=== PATIENT | male | born 1995 | race Caucasian/White ===

== ENCOUNTER → 2018-02-08 08:44 | Outpatient (CLI) | payer MEDICAID, SELFPAY ==
[2018-02-08 08:19] VITALS: BMI 23.0
--- NOTE | 2018-02-08 08:46 | RAD_ITS ---
STUDY: X-RAY - RIGHT KNEE REASON FOR EXAM: Male, 22 years old. Chronic pain TECHNIQUE: Four view(s) of the knee were obtained. COMPARISON: None. FINDINGS: The distal femur is unremarkable. The proximal tibia is unremarkable. Normal medial femorotibial compartment. Normal lateral femorotibial compartment. Normal patellofemoral articulation. There is no fullness above the patella. The soft tissue structures are unremarkable. RAD/Knee 4 or More Views IMPRESSION: No significant abnormalities are seen radiographically in the right knee. Electronically Signed: Jennifer López MD at 23:20 EST Tel Direct: [phone], Service support ,
--- OUTSIDE RECORDS SUMMARY | 2018-05-12 19:50 | XMS RPT_ITS ---
:1995 Author Organization [place] Support Name Relationship Address Phone BEVERLY AARON Unavailable [address] + [address] [place] Unavailable [address] + [place] [address] BEVERLY AARON Unavailable [address] + [address] [place] Unavailable [address] + [place] [address] BEVERLY AARON Unavailable [address] + [address] [place] Unavailable [address] + [place] [address] BEVERLY AARON Unavailable [address] + [address] [place] Unavailable [address] + [place] [address] BEVERLY AARON Unavailable [address] + [address] [place] Unavailable [address] + [place] [address] BW[address] Unavailable [address] + [employer] [place] [address] BEVERLY AARON Unavailable [address] + [place] [address] BW[address] Unavailable [address] + [employer] [place] [address] BEVERLY AARON Unavailable [address] + [place] [id number] BW3 Unavailable [address] + [facility] [place] [address] AGNIESZKA, BEVERLY Unavailable [address] + [place] [address] Care Team Providers Name Role Phone Chloe Barillas D.C. Attending Unavailable Primay Care Physicia, No Referring Unavailable Dossie, Chloe Eid Attending Unavailable Dossie, Chloe Eid Attending Unavailable Primay Care Physicia, No Referring Unavailable Primay Care Physicia, No Primary Care Unavailable Dossie, Chloe Eid Attending Unavailable Primay Care Physicia, No Referring Unavailable Wayt, Meño Attending Unavailable Primay Care Physicia, No Referring Unavailable Wayt, Meño Attending Unavailable Wayt, Meño Referring Unavailable Primay Care Physicia, No Primary Care Unavailable Dossie, Chloe Eid Attending Unavailable Primay Care Physicia, No Referring Unavailable Dossie, Chloe Eid Attending Unavailable Dossie, Chloe Eid Referring Unavailable Primay Care Physicia, No Primary Care Unavailable PROBLEMS PROBLEMS DATE TYPE CONDITION / CODE ATTENDING STATUS SOURCE 03/09/2018 Unknown M99.03 - DosChloe muniz [facility] somatic Hospital dysfunction of Repository lumbar region / M99.03(ICD-10) 02/08/2018 Unknown M25.561 - Pain in Wayt Meño [facility] right knee / [facility] M25.561(ICD-10) Hospital Repository 02/09/2018 Unknown M54.17 - DosChloe muniz [facility] Radiculopathy, [facility] lumbosacral Hospital region / Repository M54.17(ICD-10) PROCEDURES PROCEDURES No Procedure Records FoundRESULTS RESULTS PT D/C SUMMARY (1) Observed: 02/10/2018 Status: F Source: [place] 9:43 AM [facility] [place] REPOSITORY [facility] [address] [place] [address] Fax REHABILITATION SERVICES DISCHARGE SUMMARY MR#: [id number] Acct: [id number] Name: KEVIN GALLEGOS Eloy Rep #: [id number] : 1995 22 From: Sonia Xei DPT Referring Dr.: Chloe Dobson D.C. Status: REG RCR Insurance: [employer] SELF [employer]Y [employer]URANCE [place] - PT D/C Summary It has been my pleasure to treat KEVIN GALLEGOS under orders from Chloe Dobson DC, for the diagnosis of Lumbar Pain for a total of 9 visit(s). Discharge Date: Please see the following information for a summary of their discharge status. - Subjective Subjective: Patient reports that his back is good. The pain is better- he is able to lift better and feels more stable. Patient feels that he is 80% better. A little bit of pain today. Worst: 5/10. Best: 0/10. Plans to continue chiro care. Goes back to college Mar 01 - Pain Back Pain Intensity (Out of 10): 1 - Overall Improvement % Improvement: 80 - Objective Objective/Function: Posture: good sitting in plinth no back support. Gait: no deviation noted. Observation: slight lean to the left in standing- no scoliotic curve noted. Palpation: tender along L4-L5 paraspinals on the left. SLS: 30 sec no LOB. ROM: Lumbar: WFL with pain reported in flexion (tightness), Hip/Knee/Ankle: WNL. Strength: ankle: 5/5, Knee: 5/5, Hip: flexion: 4+/5, abd: 5/5, IR: 4+/5, ER: 4+/5, Extn:5/5 Add:5/5, Core:fair plus. Sensation/Reflex: WNL. Flex: HS: moderate, Gastroc: moderate - Goals Goal 1:: Patient will be I with HEP and progression Goal Progress: Goal Met Goal 2:: Patient will maintain proper posture t/o tx session to demo increased core s/s Goal Progress: Goal Met Goal 3:: Patient will demo 4+/5 strength in LE Goal Progress: Goal Met Goal 4:: Patient will report 0/10 pain for 1 week Goal Progress: Progressing - Plan Plan: Discharge to I HEP - D/C Information If there are questions or concerns regarding this patient's physical therapy, please feel free to call me at [phone]. Thank you for the referral of this patient. Sincerely, Sonia Xie, HARPREETT <Electronically signed by Sonia Xie DPT> 02/10/18 0943 CC: No Primary Care Physician; Chloe Dobson D.C. ELR Signed ORTHOPEDIC VISIT Observed: 02/08/2018 Status: F Source: [place] REPORT 11:57 AM [facility] [place] REPOSITORY [facility] Orthopaedics AND Sports Medicine [address] [place] [address] [address] [place] [address] OFFICE VISIT Date of Service: 02/08/18 MR#: [id number] Acct: [id number] Name: KEVIN GALLEGOS Rep #: [id number] : 1995 Provider: ALVIN Glynn Age/Sex: 22/M [place] [facility] Status: Signed Intake Vital Signs02/08/18 Body Mass Index (BMI) 23.0 Intake Visit Reasons: RIGHT KNEE Is patient in pain?: Yes Pain scale (1-10): 4 Allergies No Known Allergies Allergy (Verified 02/08/18 08:48) Medications NK 02/08/18 [History Confirmed 02/08/18] HPI RIGHT KNEE: Details: KEVIN GALLEGOS is a 22 year old M here today for right knee pain. Patient states that he was playing basketball about 4 weeks ago. He jumped up and felt a burning pain over his proximal fibula. Patient states that he did not twist and felt no pop during his injury. He continues to have pain over his lateral posterior knee. He has increased pain with twisting. He denies any knee swelling. Denies numbness, tingling or other associated symptoms. He denies any new knee popping. Patient has iced his knee and taken ibuprofen for pain. He denies any bracing. ROS Const Reports system reviewed and no additional complaints, except as docu Eyes Reports system reviewed and no additional complaints, except as docu ENT Reports system reviewed and no additional complaints, except as docu Card Reports system reviewed and no additional complaints, except as docu Resp Reports system reviewed and no additional complaints, except as docu GI Reports system reviewed and no additional complaints, except as docu Reports system reviewed and no additional complaints, except as docu Musc Reports joint pain Skin/Breast Reports system reviewed and no additional complaints, except as docu Neuro Yes system reviewed and no additional complaints, except as docu Psych Reports system reviewed and no additional complaints, except as docu Endo Reports system reviewed and no additional complaints, except as docu Ortho Exam Right Knee Contralateral Normal: Yes Swelling: No Homans Sign: No Knee ROM: Yes ROM-Extension -20 to 0, Yes ROM-Flexion 0-140 Examination: No Med jt line tenderness, No Lat jt line tenderness, No TTP inf pole patella, No Crepitus, No Pain with flexion, No Pain with extention, No Ab's Test Quad Atrophy: No Stability: NML: Anterior Drawer, NML: Manuel, NML: Posterior Drawer, NML: Valgus 30, NML: Varus 30 Popliteal Adenopathy: No Patellar Tilt Normal: Yes Patella Grind: No KNEE: This time patient has no abnormalities noted on inspection of the knee. He has no generalized or localized swelling of the knee. She has full range of motion and normal strength against resistance comparable to the left leg. Patient has no evidence of any ligamentous laxity. His ACL, PCL and collateral ligaments appear stable without any evident involvement. He does not have any positive meniscus signs at this time. Patient has some very minor tenderness on the posterior lateral aspect of the knee just proximal to the fibular head. There is not appear to be any motion or movement to the lateral head with manipulation or range of motion. Assessment AND Plan Problems 1. Acute pain of right knee M25.561 2. Strain of gastrocnemius tendon of right lower extremity, initial encounter S86.111A Plan Obtained Xrays of patient's right knee. Personally reviewed Xrays. There is no obvious fracture, dislocation, or lucency noted. See chart for further details. At this time patient does not have any evident abnormalities on inspection. Structurally the knee feels very intact without any evident ligamentous or meniscus involvement. He does seem to have tenderness on the lateral gastroc head which actually does correspond with some of his symptoms which occur more when he is up on his toes. Patient is going to work on some stretching of the calf and hamstring. He is going to use a mild compression sleeve around the knee. He can also use some topical remedies such as Biofreeze or icy hot prior to activity. Also needs to ice after activity. If patient has any other new signs or symptoms such as locking, clicking, or instability patient is to return at that time. He can use anti-inflammatories as needed for inflammation/pain. I do think it might not be a bad idea to maybe rest for a little longer while working on just stretching and removing inflammation. Otherwise patient can follow-up as needed. This note was generated with [employer] dictation software. It may contain incorrect words, spelling, and punctuation that were not noted in checking the note before signing. 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 Imaging Services [address] [place] [address] Knee 4 or More Views MR#: [id number] Acct: [id number] Name: KEVIN GALLEGOS Eloy Rep #: [id number] : 1995 M 22 From: Jennifer López MD PCP: Care Physician, No Primary Status: REG CLI Study: Knee 4 or More Views Date of Exam: 02/08/18 Exam# [id number] Ordering Dr: Meño Glynn STUDY: X-RAY - RIGHT KNEE REASON FOR EXAM: Male, 22 years old. Chronic pain TECHNIQUE: Four view(s) of the knee were obtained. COMPARISON: None. FINDINGS: The distal femur is unremarkable. The proximal tibia is unremarkable. Normal medial femorotibial compartment. Normal lateral femorotibial compartment. Normal patellofemoral articulation. There is no fullness above the patella. The soft tissue structures are unremarkable. RAD/Knee 4 or More Views IMPRESSION: No significant abnormalities are seen radiographically in the right knee. Electronically Signed: Jennifer López MD at 23:20 EST Tel Direct: [phone], Service support , CC: No Primary Care Physician; ALVIN Glynn Chemistry Technical Officer: Signed CHIROPRACTIC REPORT Observed: 02/08/2018 Status: F Source: [place] 8:28 AM [facility] [address] [place] [address] OFFICE VISIT Date of Service: 02/08/18 MR#: [id number] Acct: [id number] Name: KEVIN GALLEGOS Rep #: [id number] : 1995 Provider: Chloe Dobson D.C. Age/Sex: 22/M [place] [facility] Status: Signed Intake Vital Signs02/08/18 Height 5 ft 9 in 02/08/18 Weight: 156 lb 02/08/18 Body Mass Index (BMI) 23.0 Intake Visit Reasons: back pain Chief Complaint: low back pain Is patient in pain?: Yes Allergies No Known Allergies Allergy (Unverified 02/11/17 11:02) HPI back pain: Chief Complaint: Low back pain Visit Number: 4 Details: KEVIN GALLEGOS is a 22 year old M who presents with decreased low back pain. He states that after his last adjustment his pain greatly decreased, leaving him with a sore ache that comes and goes. Today Kevin rates his pain a 2/10 and describes it as a sore ache that comes and goes. Bending, and heavy lifting still causes increased pain, although he denies any numbness, tingling, or radiculopathy. 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 factors: chiro Pain Quality: aching, dull, cramping Exam Musc General: Yes normal posture, normal gait and joint tenderness (L3, L4, L5) Thoracic/Lumbar Spine: thoracic and lumbar spine normal to inspection, thoraco-lumbar spasm (R QL and R>L piriformis), pain with thoraco-lumbar ROM, straight leg raise negative bilaterally, Lasegue's sign positive, paraspinal tenderness (slightly improved) on the left greater than right (lumbar), thoraco-lumbar ROM limited Office Procedures Chiropractic Treatments Procedures Manipulation: 1-2 regions (L3, L5) Traction, Mechanical: Yes Details: Lumbar traction 15 min Assessment AND Plan 1. Lumbosacral neuritis M54.17 Orders Orders: 2. Segmental and somatic dysfunction of lumbar region M99.03 Orders Orders: Plan Detail Additional Comments Continue care in 1 month. Monitor response to treatment. 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 Cosigner Signature: Date (if applicable) CC: CHIROPRACTIC REPORT Observed: 02/03/2018 Status: F Source: [place] 9:33 AM [facility] [place] REPOSITORY [facility] [address] [place] [address] OFFICE VISIT Date of Service: 02/03/18 MR#: [id number] Acct: [id number] Name: KEVIN GALLEGOS Rep #: [id number] : 1995 Provider: Chloe Dobson D.C. Age/Sex: 22/M Location: [facility] [place] Status: Signed Intake Vital Signs02/03/18 Height 5 ft 9 in 02/03/18 Weight: 156 lb 02/03/18 Body Mass Index (BMI) 23.0 Intake Visit Reasons: back pain Chief Complaint: low back pain Is patient in pain?: Yes Allergies No Known Allergies Allergy (Unverified 02/11/17 11:02) HPI back pain : Chief Complaint: Low back pain Visit Number: 3 Details: KEVIN GALLEGOS is a 22 year old M who presents with left sided low back pain. He states that his pain has been intermittent, leaving him with a tight and sore ache across the low back. While at work the patient has been lifting heavy boxes, causing increased pain. The pain is described as a sharp shooting that is worse on the left. Kevin denies any numbness, tingling, or radiculopathy. Location: low back pain Duration: intermittent Aggravating or associated factors: rotation, bending, and lifting Relieving factors: chiro Pain Quality: aching, dull, cramping, sharp Exam Musc General: Yes normal posture, normal gait and joint tenderness (L3, L4, L5) Thoracic/Lumbar Spine: thoracic and lumbar spine normal to inspection, thoraco-lumbar spasm (R QL and R>L piriformis), pain with thoraco-lumbar ROM with forward flexion and with lateral flexion to the left, straight leg raise negative bilaterally, Lasegue's sign positive on the left, paraspinal tenderness on the left greater than right (lower lumbars), thoraco-lumbar ROM limited Office Procedures Chiropractic Treatments Procedures Manipulation: 1-2 regions (L3, L5) Details: Assessment AND Plan 1. Segmental and somatic dysfunction of lumbar region M99.03 Orders Orders: 2. Lumbosacral neuritis M54.17 Orders Orders: Plan Detail Additional Comments Continue care at 1x/wk for 4 weeks. Patient is completing PT and has had no improvement. Recommend lumbar MRI. 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 [facility] Signature: Date (if applicable) CC: INITAL EVALUATION (1) Observed: 01/11/2018 Status: F Source: [place] - PT 9:57 AM [facility] [place] REPOSITORY [facility] [address] [place] [address] Fax REHABILITATION SERVICES INITIAL EVALUATION MR#: [id number] Acct: [id number] Name: KEVIN GALLEGOS Rep #: [id number] : 1995 22 From: Sonia Xie DPT Referring Dr.: Chloe Dobson D.C. Status: REG RCR Insurance: [facility] SELF PAY INSURANCE Patient's Visit Information KEVIN GALLEGOS is a 22 year old M referred to Physical Therapy by Chloe Dobson D.C. with a diagnosis of Lumbar Pain. Date of Evaluation: 01/11/18 Physical Therapist: Sonia Xie - Visit Plan Frequency: 3x /Week Duration: 4 Weeks Plan: Start base level and work upwards with core s/s - Subjective Subjective: Patient reports that he has had back problems on/off since he was a andrei in high school when he was awkwardly tackled in a football game. He did therapy his senior year and it helped a lot. He has been seeing Dr. Dobson on/off for awhile. 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 He reports most pain when deadlifting and squatting. He is currently lifting upper body and some mild running on the TM. He wears tennis shoes with no orthotics in them. Pain is in the left side of his back and runs down his leg occasionally. 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 Pain at its worst is a 7/[address] Dobson adjusted him its only been a 3/10. He does have times when he is painfree. Eases of his pain are laying flat. Aggravating symptoms are standing for long periods of time, bending forwards, lifting heavy and driving. No N/T but reports the pain in his back as achy and burning. He has had x-rays only when the injury happened and Dr. Dobson ordered and MRI. He feels that he is weak and is ready to get stronger. No buckling or falls. No loss or change in bowel or bladder. Sleep: not disturbed- looks forwards to going to bed because it lessens the back pain. PMhx: shoulder surgery Feb 2017- AC seperation Meds: none - Objective Posture: poor- FH, RS- can correct with verbal and tactile cues but does not maintain for more than 15 seconds- poor postue in both sitting and standing. Gait: no deviation noted. Observation: slight lean to the left in standing- no scoliotic curve noted. Palpation: tender along L4-L5 paraspinals on the left. SLS: 30 sec no LOB- reports pain when standing on the right LE. ROM: Lumbar: WFL with pain reported in flexion (tightness), Hip/Knee/Ankle: WNL. Strength: ankle: 5/5, Knee: 5/5, Hip: flexion: 4-/5, abd: 4-/5, IR: 4-/5, ER: 4-/5, Extn:4-/5 Add: 4/5, Core: poor. Sensation/Reflex: WNL. Flex: HS: severe, Gastroc: moderate - Goals Goal 1:: Patient will be I with HEP and progression Goal Time Frame: 4-6 Weeks Goal 2:: Patient will maintain proper posture t/o tx session to demo increased core s/s Goal Time Frame: 4-6 Weeks Goal 3:: Patient will demo 4+/5 strength in LE Goal Time Frame: 4-6 Weeks Goal 4:: Patient will report 0/10 pain for 1 week Goal Time Frame: 4-6 Weeks - Rehabilitation Potential Physical Therapy Diagnosis: Patient presents with significant weakness in his core and hips bilaterally. The decreased strength and stabilization of his spine increased pain and decrease his ability to perform ADL's and recreational activities without pain. Rehabilitation Potential: Fair - Anticipated Interventions Patient/Client Instruction: Educate patient on: Benefits of Fitness Program Therapeutic Exercise to Include: Strength training, Balance training, Agility training, Body mechanics, Postural training, Flexibilty training, Dynamic Lumbar Stabilization, Scapular Strength/Stabilization For the Purpose of:: To improve muscle performance and motor function TENS: Yes Cryotherapy (ice pack, ice massage): Yes Thermo therapy (hot pack): Yes Ultrasound (thermal/non thermal): No Thank you for the opportunity to evaluate your patient. For Medicare and Medicare HMO plans, please review the plan of care and approve it. It will need to be FAXED BACK to us at [phone] for Medicare purposes. Please let me know if there are questions or concerns regarding this plan of care. Physician Signature: Date: <Electronically signed by Sonia Xie DPT> 01/11/18 0957 CC: No Primary Care Physician; Chloe Dobson D.C. ELR Signed For Medicare only, by signing this I certify the plan of care. Physicians Signature Date CHIROPRACTIC REPORT Observed: 01/05/2018 Status: F Source: [place] 9:26 AM [facility] [address] [place] [id number] OFFICE VISIT Date of Service: 01/04/18 MR#: [id number] Acct: [id number] Name: KEVIN GALLEGOS Rep #: [id number] : 1995 Provider: Chloe Dossi, D.C. Age/Sex: 22/M [place] [facility] [place] Status: Signed Intake Vital Signs01/04/18 Height 5 ft 9 in 01/04/18 Weight: 156 lb 01/04/18 Body Mass Index (BMI) 23.0 Intake Visit Reasons: back pain Chief Complaint: low back pain Is patient in pain?: Yes Allergies No Known Allergies Allergy (Unverified 02/11/17 11:02) HPI back pain : Chief Complaint: Low back pain Visit Number: 3 Details: KEVIN GALLEGOS is a 22 year old M who presents with low back pain. He states that recently his back has felt sore and weak. Today Kevin rates his pain a 3/10 and describes it as a sore and deep ache that bands across the low back. Standing, bending, and lifting causes increased pain, although he denies any numbness or tingling. He has taken time off from football this year to allow his back to rest, however continues to get pain that at times radiates down into the back of his thighs. No weakness noted. Location: low back pain Duration: intermittent Aggravating or associated factors: Bending, lifting Relieving factors: chiro Pain Quality: aching, dull, radiating (posterior thigh) Exam Musc General: Yes normal posture, normal gait and joint tenderness (L3, L4, L5) Thoracic/Lumbar Spine: thoracic and lumbar spine normal to inspection, thoraco-lumbar spasm (R QL and R>L piriformis), pain with thoraco-lumbar ROM with forward flexion, other (extension), with rotation to the right and with rotation to the left, straight leg raise negative bilaterally, Lasegue's sign positive bilaterally, paraspinal tenderness bilaterally in the lower lumbar and in the mid lumbar, thoraco-lumbar ROM limited with forward flexion Neuro General: alert, awake, oriented x3, gait normal, normal light touch, pain and propioception, no focal motor deficits Ortho Test CERVICAL THORACIC LUMBAR Kemps: Positive, Right, Le Valsalvas: Negative SLR: Negative Lumbar Series: +Minors sign Office Procedures Chiropractic Treatments Procedures Manipulation: 1-2 regions (L3, L5) Assessment AND Plan Problems 1. Segmental and somatic dysfunction of lumbar region M99.03 2. Lumbosacral neuritis M54.17 Plan Provided referral for PT. Recommend authorization for lumbar MRI. 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 Cosigner Signature: Date (if applicable) CC: CHIROPRACTIC REPORT Observed: 04/28/2017 Status: F Source: [place] 8:55 AM [facility] [address] [place] [address] OFFICE VISIT Date of Service: 04/28/17 MR#: [id number] Acct: [id number] Name: KEVIN GALLEGOS Rep #: [id number] : 1995 Provider: Chloe Dobson D.C. Age/Sex: 21/M Location: [facility] [place] Status: Signed Intake Vital Signs04/28/17 Height 5 ft 9 in 04/28/17 Weight: 156 lb 04/28/17 Body Mass Index (BMI) 23.0 Intake Visit Reasons: low back pain Is patient in pain?: Yes Allergies No Known Allergies Allergy (Unverified 02/11/17 11:02) HPI low back pain : Chief Complaint: low back pain Visit Number: 2 Details: KEVIN GALLEGOS is a 21 year old M who presents with low back pain. Kevin states that recently he began squatting/ lifting again he has noticed a tight sharp ache in the low back. today he rates his pain a 3/10. Kevin describes his pain as a tight sharp ache that is banding across the low back. Bending, squatting and lifting cause increased pain although he denies any numbness or tingling. No radiation into the lower extremities. Onset: 04/21/17 Location: low back Duration: intermittant Aggravating or associated factors: bending, lifting and squatting Relieving factors: stretching Pain Quality: aching, dull, sharp Exam Musc General: Yes normal posture, normal gait and joint tenderness (L3, L4, L5) Thoracic/Lumbar Spine: thoracic and lumbar spine normal to inspection, thoraco-lumbar spasm (R QL and R>L piriformis), pain with thoraco-lumbar ROM (pain is bilateral ) with forward flexion, with lateral flexion to the right and with lateral flexion to the left Office Procedures Chiropractic Treatments Procedures Manipulation: 1-2 regions (L3, L5) Assessment AND Plan 1. Segmental and somatic dysfunction of lumbar region M99.03 Orders Orders: Plan Detail Goals Decrease pain and spasm Increase ROM Barriers Football Heavy lifting Follow Up PRN Coding Level of Care Code No Charge Diagnoses Segmental and somatic dysfunction of lumbar region M99.03 Additional Codes Procedures - Manipulation: 1-2 regions (85198) 04/28/17 0855 <Electronically signed by Chloe Dobson D.C.> Date Chloe Dobson D.C. Cosigner Signature: Date (if applicable) CC: ALLERGIES ALLERGIES DATE TYPE / CODE NAME / CODE REACTION SEVERITY SOURCE 02/08/2018 Drug No Known Unknown [place] [facility] Allergy/4160 Allergies/F00 [facility] [address](SNOMED [id number](RXNOR Repository CT) M) ENCOUNTERS ENCOUNTERS ADMIT/DISCHARGE ACCOUNT ADMITTING ENCOUNTER LOCATION SOURCE NUMBER CLASS 02/10/2018/ [id number] Ambulatory [place] 8 4 [facility] ing:PT Repository 02/08/2018 [id number] Ambulatory [place] 3 [facility] ing:HPRAD Repository 02/08/2018/ [id number] Ambulatory B[facility] [place] 8 5 [facility] Repository 02/08/2018/ [id number] Ambulatory BMSBuilding:B [place] 8 4 [facility] Repository 02/03/2018/ [id number] Ambulatory B[facility] [place] 8 8 [facility] Repository 01/04/2018/ [id number] Ambulatory [facility] [place] 8 2 [facility] Repository 07/06/2017 [id number] Ambulatory [facility] [place] 6 [facility] Repository 04/28/2017/ [id number] Ambulatory BMSBuilding:B [place] 8 9 [facility] Repository PAYERS PAYERS ENCOUNTER GUARANTOR PAYER SUBSCRIBER SOURCE 02/10/2018 KEVIN D Primary KEVIN D [place] [id number] TRIPP Insurance:BUCKEYE REEDDOB: [facility] [id number] [facility] [address]Uwc: (567) PLANPolicy Number: Repository [phone] () [id number] Date:[id number] [address] [place] [address]28[address]QJ: 02/10/2018 Secondary NOT GIVENUNK [place] Insurance:SELF PAY [facility] Number: Effective Repository Date:2018-01-04 02/08/2018 KEVIN D Primary KEVIN D [place] [id number] TRIPP Insurance:BUCKEYE REEDDOB: [facility] [id number] Hospital [address]Xog: (567) PLANPolicy Number: Repository [phone] () [id number] Date:[id number] [address]WS: 02/08/2018 Secondary NOT GIVENUNK [place] Insurance:SELF PAY [facility] Number: Effective Repository Date:2018-02-08 02/08/2018 KEVIN D Primary KEVIN D [place] [id number] TRIPP Insurance:BUCKEYE REEDDOB: [facility] [id number] Hospital [address]Udf: (567) PLANPolicy Number: Repository [phone] () [id number] Date:[id number] [address] [address]ZN: 02/08/2018 Secondary NOT GIVENUNK [place] Insurance:SELF PAY [facility] Number: Effective Repository Date:2018-02-08 02/08/2018 EKVIN D Primary KEVIN D [place] [id number] TRIPP Insurance:BUCKEYE REEDDOB: [facility] [id number] [id number]: (567) PLANPolicy Number: Repository [phone] () [id number] Date:[id number] [address] [address]EH: 02/08/2018 Secondary NOT GIVENUNK [place] Insurance:SELF PAY [facility] Number: Effective Repository Date:2018-02-08 02/03/2018 KEVIN D Primary KEVIN D [place] [id number] TRIPP Insurance:BUCKEYE REEDDOB: [facility] [id number] Hospital [address]Kvr: (567) PLANPolicy Number: Repository [phone] () [id number] Date:[id number] [address]NS: 02/03/2018 Secondary NOT GIVENUNK [place] Insurance:SELF PAY [facility] Number: Effective Repository Date:2018-02-02 01/04/2018 KEVIN [id number] Primary KEVIN REEDDOB: [place] TRIPP Insurance:BECKAEYE [id number] [address]Rpo: (567) PLANPolicy Number: Repository [phone] () [id number] Date:[id number] [address] [address]LN: 01/04/2018 Secondary NOT GIVENUNK [place] Insurance:SELF PAY [facility] Number: Effective Repository Date:2018-01-04 07/06/2017 KEVIN [id number] Primary KEVIN REEDDOB: [place] TRIPP Insurance:CHARMCO [id number] [address]Iom: (567) PLANPolicy Number: Repository [phone] () [id number] Date:[id number] [address] [place], [place] [address] [address]KD: 07/06/2017 Secondary NOT GIVENUNK [place] Insurance:SELF PAY [facility] Number: Effective Repository Date:2017-07-02 04/28/2017 KEVIN [id number] Primary KEVIN REEDDOB: [place] TRIPP Insurance:CHARMCO [id number] [address]Kbk: (567) PLANPolicy Number: Repository [phone] () [id number] Date:[id number] [place] [address]HG: 04/28/2017 Secondary NOT GIVENUNK [place] Insurance:SELF PAY [facility] Number: Effective Repository Date:2017-04-27
== END ==
PROVIDERS: Referring Provider Physician Assistant; Visit Provider Physician Assistant
DX: M25.561 Pain in right knee (principal)
CPT/HCPCS: 73564

== ENCOUNTER 2018-02-10 09:00 | Outpatient (RCR) | payer MEDICAID, SELFPAY ==
--- NOTE | 2018-01-11 09:57 | HP.PTEVAL ---
Patient's Visit Information KEVIN GALLEGOS is a 22 year old M referred to Physical Therapy by Chloe Dobson D.C. with a diagnosis of Lumbar Pain. Date of Evaluation: 01/11/18 Physical Therapist: Sonia Xie - Visit Plan Frequency: 3x /Week Duration: 4 Weeks Plan: Start base level and work upwards with core s/s - Subjective Subjective: Patient reports that he has had back problems on/off since he was a andrei in high school when he was awkwardly tackled in a football game. He did therapy his senior year and it helped a lot. He has been seeing Dr. Dobson on/off for awhile. 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 He plans to play next year at [employer] for [employer]- he does not have their lifting program yet as that starts in the spring. He reports most pain when deadlifting and squatting. He is currently lifting upper body and some mild running on the TM. He wears tennis shoes with no orthotics in them. Pain is in the left side of his back and runs down his leg occasionally. 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 Pain at its worst is a 7/[address] Dobson adjusted him its only been a 3/10. He does have times when he is painfree. Eases of his pain are laying flat. Aggravating symptoms are standing for long periods of time, bending forwards, lifting heavy and driving. No N/T but reports the pain in his back as achy and burning. He has had x-rays only when the injury happened and Dr. Dobson ordered and MRI. He feels that he is weak and is ready to get stronger. No buckling or falls. No loss or change in bowel or bladder. Sleep: not disturbed- looks forwards to going to bed because it lessens the back pain. PMhx: shoulder surgery Feb 2017- AC seperation Meds: none - Objective Posture: poor- FH, RS- can correct with verbal and tactile cues but does not maintain for more than 15 seconds- poor postue in both sitting and standing. Gait: no deviation noted. Observation: slight lean to the left in standing- no scoliotic curve noted. Palpation: tender along L4-L5 paraspinals on the left. SLS: 30 sec no LOB- reports pain when standing on the right LE. ROM: Lumbar: WFL with pain reported in flexion (tightness), Hip/Knee/Ankle: WNL. Strength: ankle: 5/5, Knee: 5/5, Hip: flexion: 4-/5, abd: 4-/5, IR: 4-/5, ER: 4-/5, Extn:4-/5 Add: 4/5, Core: poor. Sensation/Reflex: WNL. Flex: HS: severe, Gastroc: moderate - Goals Goal 1:: Patient will be I with HEP and progression Goal Time Frame: 4-6 Weeks Goal 2:: Patient will maintain proper posture t/o tx session to demo increased core s/s Goal Time Frame: 4-6 Weeks Goal 3:: Patient will demo 4+/5 strength in LE Goal Time Frame: 4-6 Weeks Goal 4:: Patient will report 0/10 pain for 1 week Goal Time Frame: 4-6 Weeks - Rehabilitation Potential Physical Therapy Diagnosis: Patient presents with significant weakness in his core and hips bilaterally. The decreased strength and stabilization of his spine increased pain and decrease his ability to perform ADL's and recreational activities without pain. Rehabilitation Potential: Fair - Anticipated Interventions Patient/Client Instruction: Educate patient on: Benefits of Fitness Program Therapeutic Exercise to Include: Strength training, Balance training, Agility training, Body mechanics, Postural training, Flexibilty training, Dynamic Lumbar Stabilization, Scapular Strength/Stabilization For the Purpose of:: To improve muscle performance and motor function TENS: Yes Cryotherapy (ice pack, ice massage): Yes Thermo therapy (hot pack): Yes Ultrasound (thermal/non thermal): No Thank you for the opportunity to evaluate your patient. For Medicare and Medicare HMO plans, please review the plan of care and approve it. It will need to be FAXED BACK to us at [phone] for Medicare purposes. Please let me know if there are questions or concerns regarding this plan of care. Physician Signature: Date:
--- NOTE | 2018-02-10 09:40 | HP.PTDCSUM ---
HP - PT D/C Summary It has been my pleasure to treat KEVIN GALLEGOS under orders from Chloe Dobson DC, for the diagnosis of Lumbar Pain for a total of 9 visit(s). Discharge Date: Please see the following information for a summary of their discharge status. - Subjective Subjective: Patient reports that his back is good. The pain is better- he is able to lift better and feels more stable. Patient feels that he is 80% better. A little bit of pain today. Worst: 5/10. Best: 0/10. Plans to continue chiro care. Goes back to college Mar 01 - Pain Back Pain Intensity (Out of 10): 1 - Overall Improvement % Improvement: 80 - Objective Objective/Function: Posture: good sitting in plinth no back support. Gait: no deviation noted. Observation: slight lean to the left in standing- no scoliotic curve noted. Palpation: tender along L4-L5 paraspinals on the left. SLS: 30 sec no LOB. ROM: Lumbar: WFL with pain reported in flexion (tightness), Hip/Knee/Ankle: WNL. Strength: ankle: 5/5, Knee: 5/5, Hip: flexion: 4+/5, abd: 5/5, IR: 4+/5, ER: 4+/5, Extn:5/5 Add:5/5, Core:fair plus. Sensation/Reflex: WNL. Flex: HS: moderate, Gastroc: moderate - Goals Goal 1:: Patient will be I with HEP and progression Goal Progress: Goal Met Goal 2:: Patient will maintain proper posture t/o tx session to demo increased core s/s Goal Progress: Goal Met Goal 3:: Patient will demo 4+/5 strength in LE Goal Progress: Goal Met Goal 4:: Patient will report 0/10 pain for 1 week Goal Progress: Progressing - Plan Plan: Discharge to I HEP - D/C Information If there are questions or concerns regarding this patient's physical therapy, please feel free to call me at [phone]. Thank you for the referral of this patient. Sincerely, Sonia Xie DPT
== END 2018-02-10 19:00 | disposition home or self-care (01) ==
LOC: PT 09:00
PROVIDERS: Referring Provider Chiropractor; Visit Provider Chiropractor
DX: M99.03 Segmental and somatic dysfunction of lumbar region (principal)
CPT/HCPCS: 97110; 97162; 97164

== ENCOUNTER → 2024-07-15 | Outpatient (CLI) | payer OTHER, SELFPAY ==
--- NOTE | 2024-07-15 07:00 | MRI_ITS ---
PROCEDURE: SPINE LUMBAR (ROUTINE) 07/15/2024 REASON FOR EXAM: PAIN TECHNIQUE: Multiplanar and multisequence images were obtained without IV contrast administration. COMPARISON: none FINDINGS: Straightened lumbar lordotic curve denoting myospasm. The examined vertebrae bodies and posterior neural arches show no fracture or dislocation with preserve vertebral bodies height. Marginal lipping and subchondral degenerative marrow signal/Modio II of L5-S1 vertebral end plates. Reduced bright T2 WI signal of L4-L5 and L5-S1 discs denoting their desiccation. T12-L1: There is no focal disc pathology, central canal stenosis or neural foraminal stenosis. L1-L2: There is no focal disc pathology, central canal stenosis or neural foraminal stenosis. L2-L3: There is no focal disc pathology, central canal stenosis or neural foraminal stenosis. L3-L4: There is no focal disc pathology, central canal stenosis or neural foraminal stenosis. L4-L5: a diffuse disc bulge with a 1.5 mm central focal posterior disc protrusion and annular tear indenting the theca and encroaching upon both neural exit foramina inducing mild exiting nerve roots compression. L5-S1: a diffuse disc bulge with a 1.5 mm central focal posterior disc protrusion and annular tear indenting the theca and encroaching upon both neural exit foramina inducing mild exiting nerve roots compression. The lower thoracic spinal cord, conus medullaris, and cauda equina nerve roots are unremarkable. Multilevel small vertebral bodies hemangiomata. No marrow infiltrative lesions. Paravertebral soft tissue is unremarkable. No developmental canal stenosis. MRI/Spine Lumbar (Routine) IMPRESSION: Straightened lumbar lordotic curve denoting myospasm. No vertebral fracture or dislocation. L4-L5: a diffuse disc bulge with a 1.5 mm central focal posterior disc protrusi on and annular tear inducing mild exiting nerve roots compression. L5-S1: a diffuse disc bulge with a 1.5 mm central focal posterior disc protrusi on and annular tear inducing mild exiting nerve roots compression. Reading Location: [place] [address]
== END | disposition home or self-care (01) ==
PROVIDERS: Referring Provider Student in an Organized Health Care Education/Training Program; Visit Provider Student in an Organized Health Care Education/Training Program
DX: M54.16 Radiculopathy, lumbar region (principal)
CPT/HCPCS: 72148

== ENCOUNTER → 2024-10-31 | Outpatient (CLI) | payer OTHER, SELFPAY ==
--- OUTSIDE RECORDS SUMMARY | 2024-10-31 08:20 | XMS RPT_ITS | CCD ---
Author Organization [facility] Care Team Providers Care Rd Lab Technician Name Role Phone Gemma Nuñez LPN Unavailable Unavailab Chloe Gardner DC Unavailable Gemma Nuñez LPN Unavailable Unavailab HALLE Farley Attending Unavailable PHYSICIAN, NONE Primary Care Unavailable No, Physician Primary Care Provider Unavailabl e Unavailable Primary Care Provider UnavailGELA Mas Referring Unavailable Tay DUBON, Margarita Acosta Primary Care Provider Jany Giron CNP Primary [facility] Provide [facility] Unavailable Unavailabl MARGARITA Otero Primary Care Unavailabl WES Denise Attending Unavailable MARGARITA CROSS Primary Care Unavailabl e MARGARITA CROSS Referring Unavailabl e MARGARITA CROSS Attending Unavailabl e MARGARITA CROSS Referring Unavailabl e MARGARITA CROSS Attending Unavailabl MARGARITA Otero Primary Care UnavailVIJI Up Attending Unavailable SOFIYA GIRON Primary Care Unavailabl TOM Ramos Attending Unavailable VANITA MELENDEZ Referring Unavailable VIAJase, VANITA BALLARD Admitting Unavailable JANY GIRON Primary Care Unavaila TOM Nuñez Attending Unavailable VANITA MELENDEZ Referring Unavailable VIAU, VANITA BALLARD Admitting Unavailable SPIJANY NAZARIO Primary Care Unavaila ble VIAJase, VANITA BALLARD Referring Unavailable VIAJase, VANITA BALLARD Attending Unavailable JANY GIRON Primary Care Unavaila ble SPIJANY NAZARIO Admitting Unavaila ble SPIELDENNEJANY Lo Primary Care Unavaila ble SPIELDENNER, JANY FAISAL Primary Care Unavaila ble SPIELDENNER, JANY MALONE Referring Unavaila ble SPIELDENNER, JANY MALONE Attending Unavaila ble SPIELDENNER, JANY MALONE Primary Care Unavaila ble PIO, THOMAS Attending Unavailable VIAU, VANITA BALLARD Admitting Unavailable VIAU, VANITA BALLARD Referring Unavailable TAY [facility] Care Unavailabl e TOM BARKER Attending Unavailable VIAU, VANITA BALLARD Admitting Unavailable VIAU, VANITA BALLARD Referring Unavailable TAY, [facility] Care Unavailabl e CESILIA SOTELO Attending Unavailable VIAU, VANITA BALLARD Admitting Unavailable VIAU, VANITA BALLARD Referring Unavailable SPIELDENNER, JANY FAISAL Primary Care Unavaila ble SPIELDENNER, JANY FAISAL Primary Care Unavaila ble PIO, THOMAS Attending Unavailable VIAU, VANITA BALLARD Admitting Unavailable VIAU, VANITA CRUZER Referring Unavailable VIAU, VANITA CRUZER Admitting Unavailable LIVIER KIRKPATRICK Attending Unavailable SPIELDENNER, JANY FAISAL Primary Care Unavaila ble VIAU, VANITA BALLARD Referring Unavailable CESILIA SOTELO Attending Unavailable VIAU, VANITA BALLARD Admitting Unavailable SPIELDENNER, [facility] Primary Care Unavaila ble VIAU, VANITA BALLARD Referring Unavailable VIAU, VANITA BALLARD Referring Unavailable TOM BARKER Attending Unavailable VIAU, VANITA BALLARD Admitting Unavailable SPIELDENNER, JANY FAISAL Primary Care Unavaila ble PIO, THOMAS Attending Unavailable VIAU, VANITA BALLARD Referring Unavailable VIAU, VANITA BALLARD Admitting Unavailable SPIELDENNER, JANY FAISAL Primary Care Unavaila ble SPIELDENNER, JANY MALONE Primary Care Unavaila ble VIAU, VANITA BALLARD Attending Unavailable SPIELDENNER, JANY FAISAL Primary Care Unavaila ble FANELLO, TAMIKOKALYAN FUNEZ Admitting Unavailable FANELLO TAMIKOKALYAN FUNEZ Referring Unavailable SPIELDENNER, JANY MALONE Primary Care Unavaila ble FANELLO, TAMIKO FUNEZ Attending Unavailable SPIELDENNER, JANY MALONE Attending Unavaila ble SPIELDENNER, JANY MALONE Primary Care Unavaila ble SPIELDENNER, JANY MALONE Attending Unavaila ble SPIELDENNER, JANY MALONE Primary Care Unavaila ble SPIELDENNETeresita, JANY MALONE Attending Unavaila ble SPIELDENNER, JANY MALONE Primary Care Unavaila ble LU CASTRO Attending Unavailabl e SPIELDENNETeresita, JANY MALONE Primary Care Unavaila ble SPIELDENNER, JANY MALONE Attending Unavaila ble SPIELDENNER, JANY MALONE Primary Care Unavaila ble SPIELDENNER, JANY MALONE Attending Unavaila ble SPIELDENNER, JANY MALONE Primary Care Unavaila ble SPIELDENNER, JANY AMLONE Attending Unavaila ble SPIELDENNER, JANY MALONE Primary Care Unavaila ble SPIELDENNER, JANY MALONE Primary Care Unavaila ble VANITA MELENDEZ Attending Unavailable Care Physician, No Primary Primary Care Provider Unavailable Care Physician, No Primary Referring Provider Un available Thu Mackay Attending Provider [phone] Edilma BAUGH, Dr. Do Attending Provider [phone] Thu Mackay Referring Provider [phone] Care Physician, No Primary Primary Care Unava ilable Thu Sher Attending Unavailable Care Physician, No Primary Referring Unava ilable Care Physician, No Primary Primary Care Unava ilable Hi France Attending Unavailable Care Physician, No Primary Primary Care Unava ilable Thu Sher Referring Unavailable Thu Sher Attending Unavailable Allergies Allergy Classification Reported Allergen(s) Allergy Type Date of Onset Reaction(s) Facility (2 sources) Penicillins; Translations: [PENICILLINS] Propensity to adverse reactions to drug 1 [facility] (3 sources) Penicillin; Translations: [PENICILLIN] Drug Allergy 3 [facility] Repository Medications Current Medications Medication Drug Class(es) Dates Sig (Normalized) Sig (Original) diclofenac sodium 75 mg delayed release oral tablet (5 sources) Nonsteroidal Anti-inflammatory Drug Start: 12-19-2022 End: 03-19-2023 take 1 tablet by mouth twice daily at mealtime diclofenac sodium (VOLTAREN) 75 MG EC tablet Indications: Lumbar radiculopathy , Chronic pain of left knee Take 1 (one) tablet (75 mg total) by mouth 2 (two) times a day with meals . 60 tablet 2 12/19/2022 01/28/2023 Discontinued (Patient's Request) escitalopram 20 mg oral tablet (9 sources) Serotonin Reuptake Inhibitor Start: 09-17-2023 End: 10-13-2023 take 1 tablet by mouth once daily escitalopram oxalate (LEXAPRO) 20 MG tablet Indications: HEMALATHA (generalized anxiety disorder) Take 1 (one) tablet (20 mg total) by mouth daily . 90 tablet 3 10/13/2023 Active Start: 08-11-2023 End: 08-10-2024 escitalopram oxalate (LEXAPR O) 10 MG tablet Indications: HEMALATHA (generalized anxiety disorder) Take 1 1/2 tab daily . 45 tablet 11 09/08/2023 09/17/2023 Discontinued melatonin 10 mg oral capsule (3 sources) End: 02-10-2024 take 1 capsule by mouth once daily melatonin 10 mg cap Take 10 mg by mouth nightly . 02/10/2024 Discontinued (Patient's Request) methocarbamol 500 mg oral tablet (1 source) Muscle Relaxant Start: 06-30-2024 take 1 tablet by mouth three times daily as needed for pain Methocarbamol 500 mg tablet Active 500 mg PO THREE TIMES A DAY as needed for pain/spasms 60 June 30, 2024 12:00am ondansetron 4 mg disintegrating oral tablet (1 source) Serotonin-3 Receptor Antagonist Start: 12-05-2020 take 1 tablet by mouth every eight hours as needed for nausea ondansetron (ZOFRAN ODT) 4 MG disintegrating tablet Take 1 tablet by mouth every 8 hours as needed for Nausea or Vomiting 10 tablet 0 12/05/2020 Active Completed/Discontinued Medications Medication Drug Class(es) Dates Sig (Normalized) Sig (Original) hydrOXYzine pamoate 25 mg oral capsule (11 sources) Antihistamine Start: 04-30-2023 End: 07-19-2025 take 1 capsule by mouth three times daily as needed hydrOXYzine (VISTARIL) 25 MG capsule Take 1 (one) capsule (25 mg total) by mouth 3 (three) times a day as needed for itching . 30 capsule 02/10/2024 07/19/2024 Discontinued (Reorder (Suppress CancelRx Message to Pharmacy)) meloxicam 15 mg oral tablet (6 sources) Nonsteroidal Anti-inflammatory Drug Start: 03-24-2023 End: 03-23-2024 take 1 tablet by mouth once daily meloxicam (MOBIC) 15 MG tablet Indications: Lumbar degenerative disc disease Take 1 (one) tablet (15 mg total) by mouth daily . 90 tablet 3 03/24/2023 09/17/2023 Discontinued (Patient's Request) therapeutic multivitamin (THERAGRAN) tablet (17 sources) End: 07-30-2023 take 1 tablet by mouth once daily therapeutic multivitamin (THERAGRAN) tablet Take 1 (one) tablet by mouth daily . 0 07/30/2023 Discontinued take 1 tablet by mouth once ac y therapeutic multivitamin (THERAGRAN) tablet Take 1 (one) tablet by mouth daily . 0 Active Problems Active Problems Problem Classification Problem Date Documented Da te Episodic/Chronic Abdominal pain (3 sources) Right upper quadrant pain; Translations: [Right upper quadrant pain] Onset: 12-05-2020 Episodic Anxiety disorders (20 sources) Generalized anxiety disorder; Translations: [Generalized anxiety disorder] Onset: 01-28-2023 01-28-2023 Chronic Diseases of white blood cells (6 sources) Leukopenia; Translations: [Decreased white blood cell count, unspecified] Onset: 04-30-2023 01-29-2023 Chronic Open wounds of extremities (1 source) Laceration without foreign body of right hand, initial encounter; Translations: [Laceration of right hand without foreign body, initial encounter] Onset: 09-19-2023 Episodic Other bone disease and musculoskeletal deformities (5 sources) Segmental and somatic dysfunction; Translations: [Segmental and somatic dysfunction of lumbar region] Onset: 12-10-2015 12-10-2015 Episodic Other nervous system disorders (2 sources) Other chronic pain; Translations: [Other chronic pain] Onset: 12-22-2022 Chronic Other non-traumatic joint disorders (1 source) Arthropathy of knee joint; Translations: [Osteochondral defect of femoral condyle] Chronic Spondylosis; intervertebral disc disorders; other back problems (8 sources) Degeneration of lumbar intervertebral disc; Translations: [Other intervertebral disc degeneration, lumbar region] Onset: 03-19-2023 01-07-2023 Chronic Spondylosis; intervertebral disc disorders; other back problems (20 sources) Low back pain; Translations: [Lumbar radiculopathy] Onset: 05-30-2015 Resolved: 08-11-2023 05-30-2015 Episodic Unclassified (2 sources) Physical examination; Translations: [Encounter for general adult medical examination without abnormal findings] Onset: 08-20-2016 08-20-2016 Unclassified (1 source) Acute tear of medial meniscus of left knee; Translations: [Acute medial meniscus tear of left knee, initial encounter] Unclassified (2 sources) Low back pain, unspecified; Translations: [Low back pain, unspecified] Onset: 02-10-2023 Past or Other Problems Problem Classification Problem Date Documented Da te Episodic/Chronic Cardiac dysrhythmias (5 sources) Palpitations; Translations: [Palpitations] Onset: 01-26-2023 01-28-2023 Episodic Malaise and fatigue (2 sources) Other fatigue; Translations: [Other fatigue] Onset: 06-19-2023 Episodic Mood disorders (2 sources) Mood disorders Onset: 04-30-2023 Resolved: 10-13-2023 04-30-2023 Other connective tissue disease (4 sources) Contracture of hamstring(s); Translations: [Contracture of muscle, left thigh] Onset: 05-30-2015 06-06-2015 Episodic Other non-traumatic joint disorders (3 sources) Pain in left knee; Translations: [Pain in joint, lower leg] Onset: 12-22-2022 01-07-2023 Episodic Other upper respiratory infections (4 sources) Viral upper respiratory tract infection; Translations: [Acute upper respiratory infection, unspecified] Onset: 09-17-2023 09-17-2023 Episodic Residual codes; unclassified (2 sources) Pain Onset: 03-09-2023 Episodic Residual codes; unclassified (2 sources) Pain, unspecified; Translations: [Pain, unspecified] Onset: 02-18-2023 Episodic Sprains and strains (20 sources) Strain of muscle, fascia and tendon of lower back, initial encounter; Translations: [Sprain of ligament of lumbosacral joint] Onset: 05-30-2015 Resolved: 04-30-2023 06-06-2015 Episodic Unclassified (1 source) Low back pain, unspecified; Translations: [Low back pain, unspecified] Onset: 02-24-2023 Results Test Name Value Interpretation Reference Range Facility Magnetic resonance imaging r eportOrdered By: Gumaro Mitchell on 07-17-2024 Study report [facility] [address] [place], [place] [address] Spine Lumbar (Routine) MR#: [id number] Acct: [id number] Name: KEVIN GALLEGOS Rep #: [id number] : 1995 M 28 From: Estela as Paula BAUGH PCP: Care Physician,No Primary Status: REG CLI Study:Spine Lumbar (Routine) Date of Exam: 07/15/24 Exam# [id number] Ordering Dr: Robbie Sher PROCEDURE: SPINE LUMBAR (ROUTINE) 07/15/2024 REASON FOR EXAM: PAIN TECHNIQUE: Multiplanar and multisequence images were obtained without IV contrast administration. COMPARISON: none FINDINGS: Straightened lumbar lordotic curve denoting myospasm. The examined vertebrae bodies and posterior neural arches show no fracture or dislocation with preserve vertebral bodies height. Marginal lipping and subchondral degenerative marrow signal/Modio II of L5-S1 vertebral end plates. Reduced bright T2 WI signal of L4-L5 and L5-S1 discs denoting their desiccation. T12-L1: There is no focal disc pathology, central canal stenosis or neural foraminal stenosis. L1-L2: There is no focal disc pathology, central canal stenosis or neural foraminal stenosis. L2-L3: There is no focal disc pathology, central canal stenosis or neural foraminal stenosis. L3-L4: There is no focal disc pathology, central canal stenosis or neural foraminal stenosis. L4-L5: a diffuse disc bulge with a 1.5 mm central focal posterior disc protrusion and annular tear indenting the theca and encroaching upon both neural exit foramina inducing mild exiting nerve roots compression. L5-S1: a diffuse disc bulge with a 1.5 mm central focal posterior disc protrusion and annular tear indenting the theca and encroaching upon both neural exit foramina inducing mild exiting nerve roots compression. The lower thoracic spinal cord, conus medullaris, and cauda equina nerve roots are unremarkable. Multilevel small vertebral bodies hemangiomata. No marrow infiltrative lesions. Paravertebral soft tissue is unremarkable. No developmental canal stenosis. MRI/Spine Lumbar (Routine) IMPRESSION: Straightened lumbar lordotic curve denoting myospasm. No vertebral fracture or dislocation. L4-L5: a diffuse disc bulge with a 1.5 mm central focal posterior disc protrusion and annular tear inducing mild exiting nerve roots compression. L5-S1: a diffuse disc bulge with a 1.5 mm central focal posterior disc protrusion and annular tear inducing mild exiting nerve roots compression. Reading Location: [place] [address] CC: ALVIN Burnett; No Primary Care Physician ~ Net Lead Developer: Signed [facility] Spine Lumbar (Routine)on Spine Lumbar (Routine) [facility] [address] [place], [place] [address] Spine Lumbar (Routine) MR#: [id number] Acct: [id number] Name: KEVIN GALLEGOS Rep #: [id number] : 1995 M 28 From: Gumaro carney MD PCP: Care Physician,No Primary Status: REG CLI Study: Spine Lumbar (Routine) Date of Exam: 07/15/24 Exam# [id number] Ordering Dr: Thu Sher PROCEDURE: SPINE LUMBAR (ROUTINE) 07/15/2024 REASON FOR EXAM: PAIN TECHNIQUE: Multiplanar and multisequence images were obtained without IV contrast administration. COMPARISON: none FINDINGS: Straightened lumbar lordotic curve denoting myospasm. The examined vertebrae bodies and posterior neural arches show no fracture or dislocation with preserve vertebral bodies height. Marginal lipping and subchondral degenerative marrow signal/Modio II of L5-S1 vertebral end plates. Reduced bright T2 WI signal of L4-L5 and L5-S1 discs denoting their desiccation. T12-L1: There is no focal disc pathology, central canal stenosis or neural foraminal stenosis. L1-L2: There is no focal disc pathology, central canal stenosis or neural foraminal stenosis. L2-L3: There is no focal disc pathology, central canal stenosis or neural foraminal stenosis. L3-L4: There is no focal disc pathology, central canal stenosis or neural foraminal stenosis. L4-L5: a diffuse disc bulge with a 1.5 mm central focal posterior disc protrusion and annular tear indenting the theca and encroaching upon both neural exit foramina inducing mild exiting nerve roots compression. L5-S1: a diffuse disc bulge with a 1.5 mm central focal posterior disc protrusion and annular tear indenting the theca and encroaching upon both neural exit foramina inducing mild exiting nerve roots compression. The lower thoracic spinal cord, conus medullaris, and cauda equina nerve roots are unremarkable. Multilevel small vertebral bodies hemangiomata. No marrow infiltrative lesions. Paravertebral soft tissue is unremarkable. No developmental canal stenosis. MRI/Spine Lumbar (Routine) IMPRESSION: Straightened lumbar lordotic curve denoting myospasm. No vertebral fracture or dislocation. L4-L5: a diffuse disc bulge with a 1.5 mm central focal posterior disc protrusion and annular tear inducing mild exiting nerve roots compression. L5-S1: a diffuse disc bulge with a 1.5 mm central focal posterior disc protrusion and annular tear inducing mild exiting nerve roots compression. Reading Location: [place] [address] CC: ALVIN Burnett; No Primary Care Physician Net Lead Developer: Signed Normal [facility] L/S Spine Min 4 Viewson L/S Spine Min 4 Views [facility] [address] [place] [id number] L/S Spine Min 4 Views MR#: [id number] Acct: [id number] Name: KEVIN GALLEGOS Rep #: [id number] : 1995 M 28 From: Jamal Bingham MD PCP: Care Physician,No Primary Status: DEP AMB Study: L/S Spine Min 4 Views Date of Exam: 06/30/24 Exam# [id number] Ordering Dr: Thu Sher PROCEDURE: L/S SPINE MIN 4 VIEWS 06/30/2024 REASON FOR EXAM: PAIN TECHNIQUE: Four views, AP, lateral and flexion-extension COMPARISON: None available FINDINGS: 5 [id number] lumbar vertebral bodies identified. No fracture or malalignment. L4-5 mild disc space narrowing. No evidence of instability RAD/L/S Spine Min 4 Views IMPRESSION: L4-5 mild disc space narrowing. Reading Location: [facility] CC: ALVIN Burnett; No Primary Care Physician Net Lead Developer: Signed Normal [facility] Orthopedic Visit Reporton Orthopedic Visit Report [facility] [address] [place] [address] [address] [place] [address] OFFICE VISIT Date of Service: 06/30/24 MR#: [id number] Acct: [id number] Name: KEVIN GALLEGOS Rep #: [id number] : 1995 Provider: ALVIN Burnett Age/Sex: 28/M Location: [place] Status: Signed Intake Vital Signs 02/08/18 08:19 06/30/24 08:31 Height 5 ft 9 in 5 ft 9 in Weight: 177 lb 8 oz BMI 26.2 Intake Visit Reasons: LUMBAR SPINE Allergies No Known Allergies Allergy (Verified 06/30/24 08:32) HPI LUMBAR SPINE Details: This documentation accurately reflects the service provided and the decisions made by me, ALVIN Burnett 06/30/24826. Part of today???s visit was documented by Whitney ESTRELLA, acting as scribe. KEVIN GALLEGOS is a 28 year old M here today for low back pain that he has been having since 2016 after a football injury. At the time he was diagnosed with a strain. 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 Patient does like to workout but due to the back pain it makes it hard for him to squat, lift, go bowling or golfing, or even just putting his socks on in the morning. He feels that he has to always be cautious of how he moves. He states that his pain is on the left side of his low back and anterior/posterior left hip. He does get an occasional burning pain in his left glute. He has also noticed if he sits for long periods of time his left leg will go numb. Twisting and bending seems to increase his pain, prolonged sitting and walking also increases his pain. The pain is more on the left side of the low back. He had done PT, acupuncture, massages and is currently doing decompression. The patient has also been doing decompression with his chiropractor over the last year and a half. The patient says that he goes to the chiropractor once a week for the last year and a half for these treatments. Says that he only has had some mild benefit at most but continues to have pain completing daily tasks. The patient also is very active and continues to stay active and going to the gym with this pain. The patient did do 3 months of yoga sessions to help with stretching as guided by an instructor however he did not have any benefit from this yoga. He will take Advil [id number] as needed for the pain however he does not like to take medications and so does not take this medication very often however when he does take it he does not notice much benefit. The last time that he did PT was last year in order to get his MRI. His MRI was 1.5-2 years ago. The patient says that his pain has worsened and has changed since the time of his last MRI. Patient denies injection and would like to avoid them. Denies any prior surgeries. No diabetes, no heart or lung issues, no blood thinners. Ortho Exam General General: Yes no acute distress Neurologic: Yes alert and Yes oriented x3 Spine SPINE TESTING CERVICAL THORACIC LUMBAR Musculoskeletal Strength 0=absent - 5=normal Details: Neurological exam of the lower extremities shows 5x5 power. Normal sensations across all dermatomes. No hyperreflexia. There is mild midline and left paraspinal tenderness. Coding Level of Care Code Off vis,new,level 4 Diagnoses Lumbar radiculopathy M54.16 Assessment and Plan Assessment and Plan (1) Lumbar radiculopathy: Status: Acute Orders: Orders L/S Spine Min 4 Views Today M54.50 - Low back pain, unspecified Spine Lumbar (Routine) Today M54.16 - Radiculopathy, lumbar region Medications: New methocarbamol 500 mg PO TID PRN 60 tabs 0RF pain/spasms Plan Obtained reviewed x-rays today in the clinic. Independent rotation of the x-rays was performed. X- rays show a mild disc height loss at L4-5 and L5-S1. There is no instability seen on dynamic views. No fractures. Reviewed MRI report from February 2023 which showed L4-5 mild to moderate disc desiccation with a posterior disc bulge resulting in mild canal narrowing and mild bilateral foraminal narrowing, L5-S1 moderate disc desiccation with disc bulge resulting in mild canal narrowing. Explained the imaging findings in detail. At this time due to the patient's ongoing low back pain which has worsened and changed since his last MRI I recommended new MRI at this time to further assess. The patient has tried numerous different treatments for his low back. These treatments include home care manager rn which he has been going to for the last year and a half going weekly. The patient has also tried physical therapy on 3 different occasions all of which did not help. The patient is active in his daily life and continues to go to the gym and has been doing stretches and exercises on his own which also continues to not have any significant b (more content not included)... Normal [facility] CBC (INCLUDES DIFF/PLT)on Basophils (Bld) [#/Vol] 0.02 10*3/uL Normal 0-200 [facility] Comment on above: Performed By: #### 7 600, [address]26, , 6399 #### [facility] of [place] [address] Director Of Diversity And Inclusion: Arun Alberto MD Basophils/100 WBC (Bld) 0.4 % Normal [facility] Comment on above: Performed By: #### 7 600, , , 6399 #### [facility] of [place] [address] Director Of Diversity And Inclusion: Arun Alberto MD Eosinophils (Bld) [#/Vol] 0.082 10*3/uL Normal 15-500 [facility] Comment on above: Performed By: #### 7 600, , , 6399 #### [facility] [place] [address] Director Of Diversity And Inclusion: Arun Alberto MD Eosinophils/100 WBC (Bld) 1.6 % Normal [facility] Comment on above: Performed By: #### 7 600, , , 6399 #### [facility] [place] [address] Director Of Diversity And Inclusion: Arun Alberto MD Erythrocyte distribution width (RBC) [Ratio] 12.8 % Normal 11.0-15.0 [facility] Comment on above: Performed By: #### 7 600, , , 6399 #### [facility] [place] [address] Director Of Diversity And Inclusion: Arun Alberto MD Hematocrit (Bld) [Volume fraction] 44.2 % Normal 38.5-50.0 [facility] Comment on above: Performed By: #### 7 600, , , 99 #### [facility] of [address], [address] [place] [address] Director Of Diversity And Inclusion: Arun Alberto MD Hemoglobin (Bld) [Mass/Vol] 15.0 g/dL Normal 13.2-17.1 [facility] Comment on above: Performed By: #### 7 600, , , 6398 #### [facility] of [place] [address] Director Of Diversity And Inclusion: Arun Alberto MD Lymphocytes (Bld) [#/Vol] 1.183 10*3/uL Normal 850-3900 [facility] Comment on above: Performed By: #### 7 600, , , 6398 #### [facility] of [address], [address] [place] [address] Director Of Diversity And Inclusion: Arun Alberto MD Lymphocytes/100 WBC (Bld) 23.2 % Normal [facility] Comment on above: Performed By: #### 7 600, , , 63 #### [facility] [place] [address] Director Of Diversity And Inclusion: Arun Alberto MD MCH (RBC) [Entitic mass] 30.7 pg Normal 27.0-33.0 [facility] Comment on above: Performed By: #### 7 600, , , 99 #### [facility] of [address], [address] [place] [address] Director Of Diversity And Inclusion: Arun Alberto MD MCHC (RBC) [Mass/Vol] 33.9 g/dL Normal 32.0-36.[address] [facility] Comment on above: Result Comment: For adults, a slight decrease in the calculated MCHC value (in the range of 30 to 32 g/dL) is most likely not clinically significant; however, it should be interpreted with caution in correlation with other red cell parameters and the patient's clinical condition. Performed By: #### 7 600, , , 63 #### [facility] [place] [address] Director Of Diversity And Inclusion: Arun Alberto MD MCV (RBC) [Entitic vol] 90.4 fL Normal 80.0-100.0 [facility] Comment on above: Performed By: #### 7 600, , , 99 #### [facility] [place] [address] Director Of Diversity And Inclusion: Arun Alberto MD Monocytes (Bld) [#/Vol] 0.663 10*3/uL Normal 200-950 [facility] Comment on above: Performed By: #### 7 600, , , 6398 #### [facility] [place] [address] Director Of Diversity And Inclusion: Arun Alberto MD Monocytes/100 WBC (Bld) 13.0 % Normal [facility] Comment on above: Performed By: #### 7 600, , , 63 #### [facility] [place] [address] Director Of Diversity And Inclusion: Arun Alberto MD Neutrophils (Bld) [#/Vol] 3.152 10*3/uL Normal 3729-3150 [facility] Comment on above: Performed By: #### 7 600, , , 6398 #### [facility] [place] [address] Director Of Diversity And Inclusion: Arun Alberto MD Neutrophils/100 WBC (Bld) 61.8 % Normal [facility] Comment on above: Performed By: #### 7 600, , , 6399 #### [facility] [place] [address] Director Of Diversity And Inclusion: Arun Alberto MD Platelet mean volume (Bld) [Entitic vol] 11.3 fL Normal 7.5-12.5 [facility] Comment on above: Performed By: #### 7 600, 45896, , 6399 #### [facility] [place] [address] Director Of Diversity And Inclusion: Arun Alberto MD Platelets (Bld) [#/Vol] 217 10*3/uL Normal 140-400 [facility] Comment on above: Performed By: #### 7 600, 26611, , 6399 #### [facility] of [address], [address] [place] [address] Director Of Diversity And Inclusion: Arun Alberto MD RBC (Bld) [#/Vol] 4.89 10*6/uL Normal 4.20-5.80 [facility] Comment on above: Performed By: #### 7 600, , , 6399 #### [facility] of [address], [address] [place] [address] Director Of Diversity And Inclusion: Arun Alberto MD WBC (Bld) [#/Vol] 5.1 10*3/uL Normal 3.8-10.8 [facility] Comment on above: Performed By: #### 7 600, 66234, , 6399 #### [facility] [place] [address] Director Of Diversity And Inclusion: Arun Alberto MD [facility] 02-11-2024 Albumin [Mass/Vol] 4.8 g/dL Normal 3.6-5.1 [facility] Comment on above: Performed By: #### 7 600, 10731, , 6399 #### [facility] [place] [address] Director Of Diversity And Inclusion: Arun Alberto MD Albumin/Globulin [Mass ratio] 2.0 {ratio} Normal 1.0-2.5 [facility] Comment on above: Performed By: #### 7 600, 23728, , 6399 #### [facility] [place] [address] Director Of Diversity And Inclusion: Arun Alberto MD ALP [Catalytic activity/Vol] 62 U/L Normal 36-130 [facility] Comment on above: Performed By: #### 7 600, , , 63 #### [facility] of [address], [address] [place] [address] Director Of Diversity And Inclusion: Arun Alberto MD ALT [Catalytic activity/Vol] 14 U/L Normal 9-46 [facility] Comment on above: Performed By: #### 7 600, , , 6399 #### [facility] of [address], [address] [place] [address] Director Of Diversity And Inclusion: Arun Alberto MD AST [Catalytic activity/Vol] 17 U/L Normal 10-40 [facility] Comment on above: Performed By: #### 7 600, , , 63 #### [facility] of [address], [address] [place] [address] Director Of Diversity And Inclusion: rAun Alberto MD Bilirubin [Mass/Vol] 0.7 mg/dL Normal 0.2-1.2 [facility] Comment on above: Performed By: #### 7 600, , , 63 #### [facility] [place] [address] Director Of Diversity And Inclusion: Arun Alberto MD BUN/CREATININE RATIO SEE NOTE: Normal 6-22 [facility] Comment on above: Result Comment: Not Reported: BUN and Creatinine are within reference range. Performed By: #### 7 600, , , 63 #### [facility] of [address], [address] [place] [address] Director Of Diversity And Inclusion: Arun Alberto MD Calcium [Mass/Vol] 9.8 mg/dL Normal 8.6-10.3 [facility] Comment on above: Performed By: #### 7 600, , , 6399 #### [facility] of [address], [address] [place] [address] Director Of Diversity And Inclusion: Arun Alberto MD Chloride [Moles/Vol] 103 mmol/L Normal 98-110 [facility] Comment on above: Performed By: #### 7 600, , , 6399 #### [facility] [place] [address] Director Of Diversity And Inclusion: Arun Alberto MD CO2 [Moles/Vol] 28 mmol/L Normal 20-32 [facility] Comment on above: Performed By: #### 7 600, , , 6399 #### [facility] [place] [address] Director Of Diversity And Inclusion: Arun Alberto MD Creatinine [Mass/Vol] 0.96 mg/dL Normal 0.60-1.[address] [facility] Comment on above: Performed By: #### 7 600, , , 99 #### [facility] [place] [address] Director Of Diversity And Inclusion: Arun Alberto MD GFR/1.73 sq M.predicted among non-blacks MDRD (S/P/Bld) [Vol rate/Area] 111 mL/min/{1.73_m2} Normal > OR = 60 [facility] Comment on above: Performed By: #### 7 600, , , 6399 #### [facility] [place] [address] Director Of Diversity And Inclusion: Arun Alberto MD Globulin (S) [Mass/Vol] 2.4 g/dL Normal 1.9-3.7 [facility] Comment on above: Performed By: #### 7 600, , , 6398 #### [facility] [place] [address] Director Of Diversity And Inclusion: Arun Alberto MD Glucose [Mass/Vol] 92 mg/dL Normal 65-139 [facility] Comment on above: Result Comment: Non-fasting reference interval Performed By: #### 7 600, , , 63 #### [facility] [place] [address] Director Of Diversity And Inclusion: Arun Alberto MD Potassium [Moles/Vol] 4.2 mmol/L Normal 3.5-5.[address] [facility] Comment on above: Performed By: #### 7 600, 33171, , 6399 #### [facility] [place] [address] Director Of Diversity And Inclusion: Arun Alberto MD Protein [Mass/Vol] 7.2 g/dL Normal 6.1-8.1 [facility] Comment on above: Performed By: #### 7 600, , , 6399 #### [facility] of [address], [address] [place] [address] Director Of Diversity And Inclusion: Arun Alberto MD Sodium [Moles/Vol] 139 mmol/L Normal 135-146 [facility] Comment on above: Performed By: #### 7 600, 57735, , 6399 #### [facility] of [address], [address] [place] [address] Director Of Diversity And Inclusion: Arun Alberto MD Urea nitrogen [Mass/Vol] 11 mg/dL Normal 7-25 [facility] Comment on above: Performed By: #### 7 600, , , 6399 #### [facility] [place] [address] Director Of Diversity And Inclusion: Arun Alberto MD LIPID PANEL, [facility] 12-1 Cholesterol [Mass/Vol] 178 mg/dL Normal <200 [facility] Comment on above: Order Comment: FASTI NG:NO FASTING: NO Performed By: #### 7 600, , , 6399 #### [facility] [place] [address] Director Of Diversity And Inclusion: Arun Alberto MD Cholesterol in HDL [Mass/Vol] 44 mg/dL Normal > OR = 40 [facility] Comment on above: Order Comment: FASTI NG:NO FASTING: NO Performed By: #### 7 600, , , 6399 #### [facility] [place] [address] Director Of Diversity And Inclusion: Arun Alberto MD Cholesterol in LDL [Mass/Vol] 110 mg/dL High [facility] Comment on above: Order Comment: FASTI NG:NO FASTING: NO Result Comment: Refe rence range: <100 Desirable range <100 mg/dL for primary prevention; <70 mg/dL for patients with CHD or diabetic patients with > or = 2 CHD risk factors. LDL-C is now calculated using the Javi calculation, which is a validated novel method providing better accuracy than the Friedewald equation in the estimation of LDL-C. Kleber SS et al. SULLY. 2013;310(19): 1250-1876 (http://education.Kiosked/faq/AZI662) Performed By: #### 7 600, 48997, 49658, 6399 #### [facility] [address], [address] [place] [address] Director Of Diversity And Inclusion: Arun Alberto MD Cholesterol.total/Chol esterol in HDL [Mass ratio] 4.0 {ratio} Normal <5.0 [facility] Comment on above: Order Comment: FASTI NG:NO FASTING: NO Performed By: #### 7 600, 24553, 82376, 6399 #### [facility] [place] [address] Director Of Diversity And Inclusion: Arun Alberto MD NON HDL CHOLESTEROL 134 mg/dL (calc) High <130 [facility] Comment on above: Order Comment: FASTI NG:NO FASTING: NO Result Comment: For patients with diabetes plus 1 major ASCVD risk factor, treating to a non-HDL-C goal of <100 mg/dL (LDL-C of <70 mg/dL) is considered a therapeutic option. Performed By: #### 7 600, 04448, 10608, 6399 #### [facility] [address], [address] [place] [address] Director Of Diversity And Inclusion: Arun Alberto MD Triglyceride [Mass/Vol] 127 mg/dL Normal <150 [facility] Comment on above: Order Comment: FASTI NG:NO FASTING: NO Performed By: #### 7 600, 50895, 83073, 6399 #### [facility] [address], [address] [place] [address] Director Of Diversity And Inclusion: Arun Alberto MD TSH W/REFLEX TO FT4on 2023 TSH W/REFLEX TO FT4 2.11 mIU/L Normal 0.40-4.50 [facility] Comment on above: Performed By: #### 7 600, 31332, 24006, 6399 #### [facility] [address] [facility], [address] [place] [address] Director Of Diversity And Inclusion: Arun Alberto MD ED NOTEon 09-19-2023 ED NOTE HNO ID: [id number] Author: MIA JEFFREY RN Service: ? Author Type: Registered Nurse Type: ED Notes Filed: 09/21/2023 09:48 Note Text: Emergency Services: ED Call Back Questionnaire SERVICE DATE: 09/19/2023 Are you feeling better? Yes Any questions about discharge instructions and follow-up care? No Were you able to make a follow up appointment? No, referred to appointment hotline Do you have any further questions? No Is there anything that we could have done differently to improve your ED visit? No SIGNATURE: Mia Jeffrey RN PATIENT NAME: Kevin Gallegos DATE: September 21, 2023 TIME: 9:47 AM Normal [facility] ED NOTE HNO ID: [id number] Author: JUDITH MIRANDA RN Service: Emergency Medicine Author Type: Registered Nurse Type: ED Notes Filed: 09/19/2023 20:00 Note Text: Pt c/o hand laceration when he dive to grab something from a dog. Bleeding controlled. [place], warm, dry. No apparent distress. Alert and oriented. Normal [facility] ED PROV NOTEon 09-19-2023 ED PROV NOTE HNO ID: [id number] Author: VIJI YUNG DO Service: Emergency Medicine Author Type: Physician Type: ED Provider Notes Filed: 09/19/2023 21:15 Note Text: ED Provider Note Patient Name: Kevin Gallegos : 1995 SERVICE DATE: 09/19/23 History Patient presents with: Hand Injury: laceration Patient presents for concerns of hand laceration. States that he was running try to catch the dog and dove landing awkwardly on the ground particularly with the right hand. States he did not hit anything in the ground that he is aware of but he noticed bleeding coming from the webspace between his fourth and fifth digits on the right hand. Bleeding controlled with pressure prior to arrival. Denies any other associated pain of the joints or digits surrounding and no hand or wrist pain. Did not land on anything else or complain of any other injuries at this time. Unknown last tetanus immunization. No past medical history on file. No past surgical history on file. No family history on file. Social History Tobacco Use Smoking status: Not on file Smokeless tobacco: Not on file Substance and Sexual Activity Alcohol use: Not on file Drug use: Not on file Sexual activity: Not on file ALLERGIES Allergen Reactions Penicillins Other: See Comments unsure Review of Systems Constitutional: Negative for activity change, fatigue and fever. HENT: Negative for congestion, rhinorrhea and sore throat. Eyes: Negative for photophobia, discharge and visual disturbance. Respiratory: Negative for cough, shortness of breath and wheezing. Cardiovascular: Negative for chest pain, palpitations and leg swelling. Gastrointestinal: Negative for abdominal pain, diarrhea, nausea and vomiting. Endocrine: Negative for cold intolerance, heat intolerance and polydipsia. Genitourinary: Negative for difficulty urinating, dysuria and urgency. Musculoskeletal: Negative for arthralgias, back pain, myalgias and neck pain. Skin: Positive for wound. Negative for pallor and rash. Neurological: Negative for syncope, numbness and headaches. Physical Exam Vitals [09/19/231956] BP Pulse Temp Temp src Resp SpO2 Weight Height 130/80 (!) 100 36.9 ?C (98.5 ?F) Temporal 16 96 % 74.8 kg (165 lb) 1.778 m (5' 10) Physical Exam Vitals and nursing note reviewed. Constitutional: General: He is not in acute distress. Appearance: Normal appearance. He is not ill-appearing or toxic-appearing. HENT: Head: Normocephalic and atraumatic. Nose: Nose normal. Mouth/Throat: Mouth: Mucous membranes are moist. Pharynx: Oropharynx is clear. No oropharyngeal exudate or posterior oropharyngeal erythema. Eyes: General: No scleral icterus. Extraocular Movements: Extraocular movements intact. Conjunctiva/sclera: Conjunctivae normal. Cardiovascular: Rate and Rhythm: Normal rate and regular rhythm. Pulmonary: Effort: Pulmonary effort is normal. No respiratory distress. Musculoskeletal: General: Normal range of motion. Cervical back: Normal range of motion and neck supple. No rigidity. Right lower leg: No edema. Left lower leg: No edema. Comments: Full range of motion flexion extension of all joints of the PIPs and DIPs on all 5 digits of the right hand. No limitation range of motion of the MCPs. No tenderness palpation throughout all joints and bony regions. No bony deformities. Lymphadenopathy: Cervical: No cervical adenopathy. Skin: General: Skin is warm and dry. Findings: Lesion present. Comments: 2 cm linear laceration extending along the webspace longitudinally between the fourth and fifth digits. Hemostatic. No foreign bodies. Neurological: General: No focal deficit present. Mental Status: He is alert and oriented to person, place, and time. Mental status is at baseline. Sensory: No sensory deficit. Psychiatric: Mood and Affect: Mood normal. Behavior: Behavior normal. Diagnostic Testing ED Labs Ordered and Reviewed - No data to display LAC REPAIR Date/Time: 09/19/2023 8:50 PM Performed by: Viji Yung DO Authorized by: Viji Yung DO Risks discussed: Infection, pain, poor cosmetic result, need for additional repair and nerve damage Alternatives discussed: No treatment Anesthesia (see MAR for exact dosages): Anesthesia method: Local infiltration Local anesthetic: Lidocaine 2% w/o epi Laceration details: Location: Hand Repair type: Repair type: Simple Exploration: Hemostasis achieved with: Direct pressure Wound exploration: wound explored through full range of motion and entire depth of wound probed and visualized Contaminated: no Treatment: Amount of cleaning: Extensive Irrigation solution: Tap water Irrigation method: Pressure wash Skin repair: Repair method: Sutures Suture size: 4-0 Suture material: Nylon Suture technique: Simple interrupted Number of sutures: 4 Approximation: Approximation: Close Post-procedure details: (more content not included)... Normal [facility] MR LUMBAR SPINE WITHOUT CONT Stephen 03-19-2023 MR LUMBAR SPINE WITHOUT CONTRAST EXAMINATION: MRI LUMBAR SPINE HISTORY: Low back pain. Cmrgf-za-mvrykpb symptoms. COMPARISON: None. TECHNIQUE: Multiplanar, multisequence MRI of the lumbar spine is submitted for review without the use of gadolinium. FINDINGS: For the purposes of this examination, there appear to be 5 lumbar morphology vertebral segments with the last fully formed disc space termed L5/S1. ALIGNMENT: There is straightening of the lumbar lordosis. No significant listhesis or subluxation. No evidence of spondylolysis. VERTEBRAE: No marrow signal abnormalities to suggest neoplasm. CONUS: In normal position without tethering. Normal signal and contour. LOWER THORACIC REGION: No significant focal abnormality. T12/L1: No significant canal or foraminal stenosis. L1/L2: No significant canal or foraminal stenosis. L2/L3: No significant canal or foraminal stenosis. L3/L4: No significant canal or foraminal stenosis. L4/L5: Ndvp-bv-ieksinfp disc desiccation, loss of disc space height with posterior disc bulging and superimposed central protrusion with annular fissure. Mild facet arthropathy. Mild canal narrowing. Mild bilateral foraminal narrowing. L5/S1: Moderate disc desiccation loss of disc space height with posterior disc bulging and superimposed central protrusion with annular fissure. Mild bilateral facet arthropathy. There is mild canal and minimal left greater than right foraminal narrowing. Incidentally imaged paraspinal soft tissues and soft tissue structures in the posterior aspect of the abdomen and the retroperitoneum demonstrate no additional clearly acute or diagnostic abnormality otherwise. CONCLUSION: 1. There is multilevel discogenic disease and degenerative facet arthropathy in the lower lumbar spine at the L4-S1 levels resulting in mild canal and mild left greater than right foraminal narrowing, as described above, level by level. 2. No acute lumbar spine fracture or posttraumatic lumbar spine alignment abnormality is identified. LSE/pji Workstation ID: [id number] Dictated by: MACY BONILLA on ThuMar 19, 2023 8:40:36 AM EST Transcribed by: BAILEE BEAN on ThuMar 19, 2023 8:46:05 AM EST Finalized by: MACY BONILLA on ThuMar 19, 2023 9:13:29 AM EST Normal [facility] Comment on above: Order Comment: Injur y/Trauma or Illness?:Illness/Other How long have you had these symptoms (acute/chronic)?:Chronic Reason for exam?:Low back pain, symptoms persist with > 6 wks treatment, Lumbar radiculopathy, Lumbar degenerative disc disease Type of Exam?:Initial Additional signs and symptoms?:pt states pain in low back since 2016 after a hard football hit HOLTER MONITOR - (UP TO 48 H OUR)on 03-09-2023 HOLTER MONITOR - (UP TO 48 HOUR) This is a summary report. The complete report is available in the patient's medical record. If you cannot access the medical record, please contact the sending organization for a detailed fax or copy. ?? HOLTER REPORT: 02/17/2023 - 02/20/2023 ?? INDICATIONS: PALPITATIONS This is a 72-hour Holter monitor indication for the study is palpitations Minimum heart rate 40 bpm, average 72 bpm, max 185 bpm Ventricular ectopy total burden less than 1% Supraventricular ectopy total burden 0% 4 patient triggered events 3 of which were unassociated with any arrhythmia 1 was associated with sinus tachycardia, no symptoms were noted No high-grade AV block, no pauses, no atrial fibrillation Normal [facility] XR KNEE LEFT 2 VIEWS ([address])on 12-22-2022 XR KNEE LEFT 2 VIEWS (STANDARD) EXAMINATION: XR KNEE LEFT 2 VIEWS (STANDARD) HISTORY: ORDERING SYSTEM PROVIDED HISTORY: chronic pain, TECHNOLOGIST PROVIDED HISTORY: Illness/Other Reason for exam: increased pain Cancer History: U Surgery, RadiationHistory: U Encounter Type: Initial Additional signs and symptoms: na ORDERING SYSTEM PROVIDED DIAGNOSIS CODES: M54.16 Lumbar radiculopathy M25.562 Chronic pain of left knee G89.29 Chronic pain of left knee COMPARISON: 08/29/2019. FINDINGS: Two views of the left knee. No acute fracture. Joint alignment is anatomic. Joint spaces are preserved. No significant joint effusion. Soft tissues are within normal limits. IMPRESSION: No acute osseous abnormality. ST/k Workstation ID: [id number] Dictated by: JASSI PITTMAN on ThuDec 22, 2022 2:45:06 PM EDT Transcribed by: KAREN MEDINA on ThuDec 22, 2022 2:52:11 PM EDT Finalized by: JASSI PITTMAN on ThuDec 22, 2022 4:48:42 PM EDT [facility] Comment on above: Order Comment: Injur y/Trauma or Illness?:Illness/Other left knee tightness and discomfort popliteal region with known bakers cyst How long have you had these symptoms (acute/chronic)?:Chronic Reason for exam?:increased pain History of cancer?:U Surgeries, chemotherapy, or radiation?:U Type of Exam?:Initial Additional signs and symptoms?:na XR LUMBAR SPINE 2-3 VIEWS (S TANDARD)on 12-22-2022 XR LUMBAR SPINE 2-3 VIEWS (STANDARD) EXAMINATION: LUMBAR SPINE HISTORY: Dx: M54.16 (Lumbar radiculopathy) Injury/Trauma or Illness?:Illness/Ot her backpain chronic pain COMPARISON: None FINDINGS: Frontal and lateral as well as coned lateral lumbosacral junction views of the lumbar spine are performed. Bony mineralization is normal for a patient this age. There is no evidence of fracture. There is no evidence of anterolisthesis or retrolisthesis. The disc spaces are well preserved. Pedicles are intact. IMPRESSION: Unremarkable lumbar spine radiographs. / Workstation ID: [id number] Dictated by: KECIA LUJAN on ThuDec 22, 2022 1:53:22 PM EDT Transcribed by: DENNIS MATHUR on ThuDec 22, 2022 2:09:11 PM EDT Finalized by: KECIA LUJAN on ThuDec 22, 2022 2:11:11 PM EDT Normal [facility] Comment on above: Order Comment: Injur y/Trauma or Illness?:Illness/Other backpain How long have you had these symptoms (acute/chronic)?:Chronic Reason for exam?:increased pain History of cancer?:U Surgeries, chemotherapy, or radiation?:U Type of Exam?:Initial Additional signs and symptoms?:na US ABDOMEN LIMITEDon 022 US ABDOMEN LIMITED EXAMINATION: RIGHT UPPER QUADRANT ULTRASOUND 11/15/2021 7:52 am COMPARISON: None. HISTORY: ORDERING SYSTEM PROVIDED HISTORY: [facility] abdominal pain TECHNOLOGIST PROVIDED HISTORY: Specify organ?->GALLBLADDER FINDINGS: LIVER: The liver demonstrates normal echogenicity without evidence of intrahepatic biliary ductal dilatation. BILIARY SYSTEM: Gallbladder is unremarkable without evidence of pericholecystic fluid, wall thickening or stones. Negative sonographic Dickens's sign. Common bile duct is within normal limits measuring 3.4 mm. RIGHT KIDNEY: The right kidney is grossly unremarkable without evidence of hydronephrosis. PANCREAS: Visualized portions of the pancreas are unremarkable. OTHER: No evidence of right upper quadrant ascites. IMPRESSION: Unremarkable right upper quadrant ultrasound. Interpreted by: Fredrick Delaney DO Signed by: Fredrick Delaney DO 11/15/21 Final result Normal [facility] US ABDOMEN LIMITED Specify o rgan? GALLBLADDERon 11-15-2021 Unremarkable right upper quadrant ultrasound. [facility] EXAMINATION: RIGHT UPPER QUADRANT ULTRASOUND 11/15/2021 7:52 am COMPARISON: None. HISTORY: ORDERING SYSTEM PROVIDED HISTORY: RU abdominal pain TECHNOLOGIST PROVIDED HISTORY: Specify organ?->GALLBLADDER FINDINGS: LIVER: The liver demonstrates normal echogenicity without evidence of intrahepatic biliary ductal dilatation. BILIARY SYSTEM: Gallbladder is unremarkable without evidence of pericholecystic fluid, wall thickening or stones. Negative sonographic Dickens's sign. Common bile duct is within normal limits measuring 3.4 mm. RIGHT KIDNEY: The right kidney is grossly unremarkable without evidence of hydronephrosis. PANCREAS: Visualized portions of the pancreas are unremarkable. OTHER: No evidence of right upper quadrant ascites. [facility] Fredrick Delaney, - 11/15/2021 EXAMINATION: RIGHT UPPER QUADRANT ULTRASOUND 11/15/2021 7:52 am COMPARISON: None. HISTORY: ORDERING SYSTEM PROVIDED HISTORY: RU abdominal pain TECHNOLOGIST PROVIDED HISTORY: Specify organ?->GALLBLADDER FINDINGS: LIVER: The liver demonstrates normal echogenicity without evidence of intrahepatic biliary ductal dilatation. BILIARY SYSTEM: Gallbladder is unremarkable without evidence of pericholecystic fluid, wall thickening or stones. Negative sonographic Dickens's sign. Common bile duct is within normal limits measuring 3.4 mm. RIGHT KIDNEY: The right kidney is grossly unremarkable without evidence of hydronephrosis. PANCREAS: Visualized portions of the pancreas are unremarkable. OTHER: No evidence of right upper quadrant ascites. IMPRESSION: Unremarkable right upper quadrant ultrasound. [employer] Phone: Radiology Study observation (narrative) [employer] Phone: US ABDOMEN LIMITED Specify o rgan? GALLBLADDEROrdered By: Fredrick Delaney on 11-15-2021 [employer] [facility] Phone: CBC with Diffon 12-05-2020 Abs. Basophil <0.03 Normal 0.00-0.20 [facility] Comment on above: Performed By: #### C DP, LIP #### [facility] [address] [place] [address] [place] [place] [address] [employer]: Damon Alvarado MD Abs. Eosinophil <0.03 Normal 0.00-0.44 [facility] Comment on above: Performed By: #### C DP, LIP #### [address] [place], [place] [id number] [employer]: Damon Alvarado MD Abs.Imm.Granulocyte <0.03 Normal 0.00-0.30 [facility] Comment on above: Performed By: #### C DP, LIP #### [address] [place], [place] [id number] [employer]: Damon Alvarado MD Abs.Neutrophil (Seg) 4.59 k/uL Normal 1.50-8.10 [facility] Comment on above: Performed By: #### C DP, LIP #### [address] [place], [place] 0456883 [employer]: Damon Alvarado MD Basophils/100 WBC (Bld) 0 % Normal 0-2 [facility] Comment on above: Performed By: #### C DP, LIP #### [address] [place], [place] 4704483 [employer]: Damon Alvarado MD Eosinophils/100 WBC (Bld) 0 % Low 1-4 [facility] Comment on above: Performed By: #### C DP, LIP #### [address] [place], [place] [id number] [employer]: Damon Alvarado MD Erythrocyte distribution width (RBC) [Ratio] 11.7 % Low 11.8-14.4 [facility] Comment on above: Performed By: #### C DP, LIP #### [address] [place], [place] [id number] [employer]: Damon Alvarado MD Hematocrit (Bld) [Volume fraction] 43.7 % Normal 40.7-50.3 [facility] Comment on above: Performed By: #### C DP, LIP #### [facility] [address] [place], [place] [address] [employer]: Damon Alvarado MD Hemoglobin (Bld) [Mass/Vol] 14.7 g/dL Normal 13.0-17.0 [facility] Comment on above: Performed By: #### C DP, LIP #### [address] [place], [place] [address] [employer]: Damon Alvarado MD Immature granulocytes/100 WBC (Bld) 0 % Normal 0 [facility] Comment on above: Performed By: #### C DP, LIP #### [address] [place], [facility] [employer]: Damon Alvarado MD Lymphocytes (Bld) [#/Vol] 1.51 10*3/uL Normal 1.10-3.70 [facility] Comment on above: Performed By: #### C DP, LIP #### [address] [place], [place] [address] [employer]: Damon Alvarado MD Lymphocytes/100 WBC (Bld) 23 % Low 24-43 [facility] Comment on above: Performed By: #### C DP, LIP #### [address] [place], [place] [address] [employer]: Damon Alvarado MD MCH (RBC) [Entitic mass] 30.4 pg Normal 25.2-33.5 [facility] Comment on above: Performed By: #### C DP, LIP #### [address] [place] [address] [employer]: Damon Alvarado MD MCHC (RBC) [Mass/Vol] 33.6 g/dL Normal 28.4-34.8 [facility] Comment on above: Performed By: #### C DP, LIP #### [facility] [address] [place], [place] [id number] [employer]: Damon Alvarado MD MCV (RBC) [Entitic vol] 90.5 fL Normal 82.6-102.9 [facility] Comment on above: Performed By: #### C DP, LIP #### [facility] [address] [place], [place] 1562783 [employer]: Damon Alvarado MD Monocytes (Bld) [#/Vol] 0.40 10*3/uL Normal 0.10-1.20 [facility] Comment on above: Performed By: #### C DP, LIP #### [address] [place], [place] 9586783 [employer]: Damon Alvarado MD Monocytes/100 WBC (Bld) 6 % Normal 3-12 [facility] Comment on above: Performed By: #### C DP, LIP #### [address] [place], [place] 9201083 [employer]: Damon Alvarado MD Neutrophil (Seg) 71 % High 36-65 [facility] Comment on above: Performed By: #### C DP, LIP #### [address] [place], [place] 8822983 [employer]: Damon Alvarado MD NRBC Automated 0.0 per 100 WBC Normal 0.0 [facility] Comment on above: Performed By: #### C DP, LIP #### [facility] [address] [place], [place] 6164583 [employer]: Damon Alvarado MD Platelet mean volume (Bld) [Entitic vol] 10.2 fL Normal 8.1-13.5 [facility] Comment on above: Performed By: #### C DP, LIP #### [facility] [address] [place] [address] [employer]: Damon Alvarado MD Platelets (Bld) [#/Vol] 228 10*3/uL Normal 138-453 [facility] Comment on above: Performed By: #### C DP, LIP #### [facility] [address] [place], [place] [id number] [employer]: Damon Alvarado MD RBC (Bld) [#/Vol] 4.83 10*6/uL Normal 4.21-5.77 [facility] Comment on above: Performed By: #### C DP, LIP #### [facility] [address] [place] [address] [employer]: Damon Alvarado MD WBC (Bld) [#/Vol] 6.6 10*3/uL Normal 3.5-11.3 [facility] Comment on above: Performed By: #### C DP, LIP #### [address] [place] [address] [employer]: Damon Alvarado MD Auto Diff Performed NOT REPORTED Normal [facility] Comment on above: Performed By: #### C DP, LIP #### [address] [place] [address] [employer]: Damon Alvarado MD Platelet Estimate NOT REPORTED Normal [facility] Comment on above: Performed By: #### C DP, LIP #### [facility] [address] [place] [address] [employer]: Damon Alvarado MD RBC morphology finding Nom (d) NOT REPORTED Normal [facility] Comment on above: Performed By: #### C DP, LIP #### [facility] [address] [place] [address] [employer]: Damon Alvarado MD WBC Morphology NOT REPORTED Normal [facility] Comment on above: Performed By: #### C DP, LIP #### [facility] [address] [place] [address] [employer]: Damon Alvarado MD Abs. Basophil <0.03 Normal 0.00-0.20 [facility] Comment on above: Performed By: #### C P, LIP, CDP #### [facility] [address] [place] [address] [place] [address] [employer]: Damon Alvarado MD Abs. Eosinophil <0.03 Normal 0.00-0.44 [facility] Comment on above: Performed By: #### C P, LIP, CDP #### [facility] [address] [place] [address] [place] [address] [employer]: Damon Alvarado MD Abs.Imm.Granulocyte <0.03 Normal 0.00-0.30 [facility] Comment on above: Performed By: #### C P, LIP, CDP #### [address] [place] [id number] [employer]: Damon Alvarado MD Abs.Neutrophil (Seg) 6.77 k/uL Normal 1.50-8.10 [facility] Comment on above: Performed By: #### C P, LIP, CDP #### [address] [place], [facility] [employer]: Damon Alvarado MD Basophils/100 WBC (Bld) 0 % Normal 0-2 [facility] Comment on above: Performed By: #### C P, LIP, CDP #### [facility] [address] [place] [address] Dr. [place], [facility] [employer]: Damon Alvarado MD Eosinophils/100 WBC (Bld) 0 % Low 1-4 [facility] Comment on above: Performed By: #### C P, LIP, CDP #### [address] [place] [address] [employer]: Damon Alvarado MD Erythrocyte distribution width (RBC) [Ratio] 11.7 % Low 11.8-14.4 [facility] Comment on above: Performed By: #### C P, LIP, CDP #### [facility] [address] [place], [place] [address] [employer]: Damon Alvarado MD Hematocrit (Bld) [Volume fraction] 44.2 % Normal 40.7-50.3 [facility] Comment on above: Performed By: #### C P, LIP, CDP #### [facility] [address] [place], [place] [address] [employer]: Damon Alvarado MD Hemoglobin (Bld) [Mass/Vol] 14.9 g/dL Normal 13.0-17.0 [facility] Comment on above: Performed By: #### C P, LIP, CDP #### [address] [place], [place] [address] [employer]: Damon Alvarado MD Immature granulocytes/100 WBC (Bld) 0 % Normal 0 [facility] Comment on above: Performed By: #### C P, LIP, CDP #### [address] [place], [facility] [employer]: Damon Alvarado MD Lymphocytes (Bld) [#/Vol] 1.37 10*3/uL Normal 1.10-3.70 [facility] Comment on above: Performed By: #### C P, LIP, CDP #### [facility] [address] [place] [address] Dr. [place], [facility] [employer]: Damon Alvarado MD Lymphocytes/100 WBC (Bld) 16 % Low 24-43 [facility] Comment on above: Performed By: #### C P, LIP, CDP #### [facility] [address] [place], [facility] [employer]: Damon Alvarado MD MCH (RBC) [Entitic mass] 30.3 pg Normal 25.2-33.5 [facility] Comment on above: Performed By: #### C P, LIP, CDP #### [facility] [address] [place] [address] [place] [address] [employer]: Damon Alvarado MD MCHC (RBC) [Mass/Vol] 33.7 g/dL Normal 28.4-34.8 [facility] Comment on above: Performed By: #### C P, LIP, CDP #### [address] [place], [place] [address] [employer]: Damon Alvarado MD MCV (RBC) [Entitic vol] 89.8 fL Normal 82.6-102.9 [facility] Comment on above: Performed By: #### C P, LIP, CDP #### [address] [place] [address] [employer]: Damon Alvarado MD Monocytes (Bld) [#/Vol] 0.51 10*3/uL Normal 0.10-1.20 [facility] Comment on above: Performed By: #### C P, LIP, CDP #### [address] [place], [facility] [employer]: Damon Alvarado MD Monocytes/100 WBC (Bld) 6 % Normal 3-12 [facility] Comment on above: Performed By: #### C P, LIP, CDP #### [address] [place], [place] [address] [employer]: Damon Alvarado MD Neutrophil (Seg) 78 % High 36-65 [facility] Comment on above: Performed By: #### C P, LIP, CDP #### [address] [place] [id number] [employer]: Damon Alvarado MD NRBC Automated 0.0 per 100 WBC Normal 0.0 [facility] Comment on above: Performed By: #### C P, LIP, CDP #### [address] [place], [facility] [employer]: Damon Alvarado MD Platelet mean volume (Bld) [Entitic vol] 10.2 fL Normal 8.1-13.5 [facility] Comment on above: Performed By: #### C P, LIP, CDP #### [facility] [address] [place] [address] [employer]: Damon Alvarado MD Platelets (Bld) [#/Vol] 240 10*3/uL Normal 138-453 [facility] Comment on above: Performed By: #### C P, LIP, CDP #### [facility] [address] [place] [id number] [employer]: Damon Alvarado MD RBC (Bld) [#/Vol] 4.92 10*6/uL Normal 4.21-5.77 [facility] Comment on above: Performed By: #### C P, LIP, CDP #### [address] [place], [facility] [employer]: Damon Alvarado MD WBC (Bld) [#/Vol] 8.7 10*3/uL Normal 3.5-11.3 [facility] Comment on above: Performed By: #### C P, LIP, CDP #### [address] [place], [facility] [employer]: Damon Alvarado MD Auto Diff Performed NOT REPORTED Normal [facility] Comment on above: Performed By: #### C P, LIP, CDP #### [address] [place] [address] [employer]: Damon Alvarado MD Platelet Estimate NOT REPORTED Normal [facility] Comment on above: Performed By: #### C P, LIP, CDP #### [address] [place] [address] [employer]: Damon Alvarado MD RBC morphology finding Nom (Bld) NOT REPORTED Normal [facility] Comment on above: Performed By: #### C P, LIP, CDP #### [facility] [address] [place] [address] [employer]: Damon Alvarado MD WBC Morphology NOT REPORTED Normal [facility] Comment on above: Performed By: #### C P, LIP, CDP #### [facility] [address] [place] [address] [employer]: Damon Alvarado MD CT ABDOMEN PELVIS W IV CONTR Aidan 12-05-2020 CT ABDOMEN PELVIS W IV CONTRAST EXAMINATION: CT OF THE ABDOMEN AND PELVIS WITH CONTRAST 12/05/2020 7:29 pm TECHNIQUE: CT of the abdomen and pelvis was performed with the administration of intravenous contrast. Multiplanar reformatted images are provided for review. Dose modulation, iterative reconstruction, and/or weight based adjustment of the mA/kV was utilized to reduce the radiation dose to as low as reasonably achievable. COMPARISON: None. HISTORY: ORDERING SYSTEM PROVIDED HISTORY: lower abd pain TECHNOLOGIST PROVIDED HISTORY: lower abd pain Decision Support Exception - unselect if not a suspected or confirmed emergency medical condition->Emergenc y Medical Condition (MA) FINDINGS: Lower Chest: The lung bases are clear. The heart is normal in size. No pleural or pericardial effusion. Organs: Liver: Unremarkable. Gallbladder: Unremarkable. Pancreas: Unremarkable. Spleen: Unremarkable. Adrenals: Unremarkable. Kidneys: Unremarkable. GI/Bowel: No bowel wall thickening or obstruction. Normal appendix. Pelvis: The urinary bladder and the prostate are grossly unremarkable. Peritoneum/Retroper itoneum: No lymphadenopathy. No free air or free fluid is seen. The abdominal aorta and pelvic arteries are unremarkable. Bones/Soft Tissues: The visualized bones are intact without fracture or focal lesion. Small disc bulges are noted at L4-5 and L5-S1. IMPRESSION: No acute abnormality is seen in the abdomen or the pelvis. Interpreted by: Mirian Tsang MD Signed by: Mirian Tsang MD 12/05/20 Final result Normal [facility] Comp Metabolic Profon 2020 (cont.) Normal [facility] Comment on above: Result Comment: Aver age GFR for 20-29 years old: 116 mL/min/1.73sq m Chronic Kidney Disease: <60 mL/min/1.73sq m Kidney failure: <15 mL/min/1.73sq m eGFR calculated using average adult body mass. Additional eGFR calculator available at: http://www.[employer]/multiple_crcl_2012.htm Performed By: #### C P, LIP, CDP #### [facility] [address] [place] [address] [place] [place], [place] [id number] [employer]: Damon Alvarado MD Albumin [Mass/Vol] 5.0 g/dL Normal 3.5-5.2 [facility] Comment on above: Performed By: #### C P, LIP, CDP #### [address] [place], [place] 3793283 [employer]: Damon Alvarado MD Albumin/Glob Ratio 1.9 Normal 1.0-2.5 [facility] Comment on above: Performed By: #### C P, LIP, CDP #### [address] [place], [place] 883[address]83 [employer]: Dmaon Alvarado MD Alkaline Phos 85 U/L Normal 40-129 [facility] Comment on above: Performed By: #### C P, LIP, CDP #### [address] [place] [address] [employer]: Damon Alvarado MD ALT [Catalytic activity/Vol] 18 U/L Normal 5-41 [facility] Comment on above: Performed By: #### C P, LIP, CDP #### [facility] [address] [place], [place] [address]37[address]83 [employer]: Damon Alvarado MD Anion gap [Moles/Vol] 13 mmol/L Normal 9-17 [facility] Comment on above: Performed By: #### C P, LIP, CDP #### [address] [place], [place] 4892983 [employer]: Damon Alvarado MD AST [Catalytic activity/Vol] 21 U/L Normal <40 [facility] Comment on above: Performed By: #### C P, LIP, CDP #### [facility] [address] [place], [place] 9423783 [employer]: Damon Alvarado MD Bilirubin [Mass/Vol] 0.50 mg/dL Normal 0.3-1.2 [facility] Comment on above: Performed By: #### C P, LIP, CDP #### [facility] [address] [place], [place] 1699283 [employer]: Damon Alvarado MD BUN/CRE Ratio 16 Normal 9-20 [facility] Comment on above: Performed By: #### C P, LIP, CDP #### [facility] [address] [place], [place] 2488883 [employer]: Damon Alvarado MD Calcium [Mass/Vol] 9.7 mg/dL Normal 8.6-10.4 [facility] Comment on above: Performed By: #### C P, LIP, CDP #### [facility] [address] [place], [place] 8425683 [employer]: Damon Alvarado MD Chloride [Moles/Vol] 103 mmol/L Normal 98-107 [facility] Comment on above: Performed By: #### C P, LIP, CDP #### [facility] [address] [place], [place] 0089783 [employer]: Damon Alvarado MD CO2 [Moles/Vol] 25 mmol/L Normal 20-31 [facility] Comment on above: Performed By: #### C P, LIP, CDP #### [facility] [address] [place], [place] 5341283 [employer]: Damon Alvarado MD Creatinine [Mass/Vol] 0.94 mg/dL Normal 0.70-1.20 [facility] Comment on above: Performed By: #### C P, LIP, CDP #### [facility] [address] [place], [place] 3391283 [employer]: Damon Alvarado MD GFR, Amer >60 Normal >60 [facility] Comment on above: Performed By: #### C P, LIP, CDP #### [facility] [address] [place], [place] 9879683 [employer]: Damon Alvarado MD GFR,non Amer >60 Normal >60 [facility] Comment on above: Performed By: #### C P, LIP, CDP #### [facility] [address] [place], [place] [phone] [employer]: Damon Alvarado MD Glucose [Mass/Vol] 116 mg/dL High 70-99 [facility] Comment on above: Performed By: #### C P, LIP, CDP #### [facility] [address] [place], [place] 3944383 [employer]: Damon Alvarado MD Potassium [Moles/Vol] 4.2 mmol/L Normal 3.7-5.3 [facility] Comment on above: Performed By: #### C P, LIP, CDP #### [facility] [address] [place], [place] 2437283 [employer]: Damon Alvarado MD Protein [Mass/Vol] 7.7 g/dL Normal 6.4-8.3 [facility] Comment on above: Performed By: #### C P, LIP, CDP #### [facility] [address] [place], [place] 5733383 [employer]: Damon Alvarado MD Sodium [Moles/Vol] 141 mmol/L Normal 135-144 [facility] Comment on above: Performed By: #### C P, LIP, CDP #### [facility] [address] [place], [place] 1219383 [employer]: Damon Alvarado MD Staging: Normal [facility] Comment on above: Result Comment: Stag e 1: Some kidney damage normal GFR Stage 2: Mild kidney damage GFR 60-89 Stage 3: Moderate kidney damage GFR 30-59 Stage 4: Severe kidney damage GFR 15-29 Stage 5: Severe kidney damage GFR <15 ESRD - chronic treatment by dialysis or transplant Performed By: #### C P LIP, CDP #### [address] [place], [place] 1185983 [employer]: Damon Alvarado MD Urea nitrogen [Mass/Vol] 15 mg/dL Normal 6-20 [facility] Comment on above: Performed By: #### C PMARINA, CDP #### [address] [place], [place] 3842483 [employer]: Damon Alvarado MD Lactic Acidon 12-05-2020 Lactate [Moles/Vol] 1.6 mmol/L Normal 0.5-2.2 [facility] Comment on above: Performed By: #### L ACTIC #### [address] [place], [place] [address]26[address]83 [employer]: Damon Alvarado MD Lactic Acid,Whole Bl NOT REPORTED Normal 0.7-2.1 [facility] Comment on above: Performed By: #### L ACTIC #### [address] [place], [place] 6565083 [employer]: Damon Alvarado MD Lactate [Moles/Vol] 0.9 mmol/L Normal 0.5-2.2 [facility] Comment on above: Performed By: #### L ACTIC #### [address] [place], [place] 0291383 [employer]: Damon Alvarado MD Lactic Acid,Whole Bl NOT REPORTED Normal 0.7-2.1 [facility] Comment on above: Performed By: #### L ACTIC #### [address] [place], [place] 4711183 [employer]: Damon Alvarado MD Lipaseon 12-05-2020 Lipase [Catalytic activity/Vol] 26 U/L Normal 60 [facility] Comment on above: Performed By: #### C DP, LIP #### [facility] [address] [place], [place] 4437083 [employer]: Damon Alvarado MD Lipase [Catalytic activity/Vol] 17 U/L Normal 60 [facility] Comment on above: Performed By: #### C P, LIP, CDP #### [facility] [address] [place], [place] [phone] [employer]: Damon Alvarado MD Urinalysis w/ Microon 2020 ----- Normal [facility] Comment on above: Performed By: #### U AMIC #### [address] [place], [place] 9926083 [employer]: Damon Alvarado MD Bacteria TRACE Abnormal NONE [facility] Comment on above: Performed By: #### U AMIC #### [address] [place] [id number] [employer]: Damon Alvarado MD Bilirubin, SemiQt,Ur Negative Normal NEG [facility] Comment on above: Performed By: #### U AMIC #### [facility] [address] [place] [address] [address] [place], [place] [id number] [employer] Driver: Damon Alvarado MD Blood, Urine Negative Normal NEG [facility] Comment on above: Performed By: #### U AMIC #### [facility] [address] [place] [address] [address] [place], [place] [id number] [employer]: Damon Alvarado MD Clarity (U) Clear Normal CLEAR [facility] Comment on above: Performed By: #### U AMIC #### [facility] [address] [place] [address] [place], [place] [address] [employer]: Damon Alvarado MD Color (U) Yellow Normal YEL [facility] Comment on above: Performed By: #### U AMIC #### [facility] [address] [place], [place] [id number] [employer]: Damon Alvarado MD Epithelial cells LM Ql (Urine sed) None Normal 0-5 [facility] Comment on above: Performed By: #### U AMIC #### [facility] [address] [place], [place] [id number] [employer]: Damon Alvarado MD Glucose Ql (U) Negative Normal NEG [facility] Comment on above: Performed By: #### U AMIC #### [address] [place], [place] [id number] [employer]: Damon Alvarado MD Ketones Ql (U) Negative Normal NEG [facility] Comment on above: Performed By: #### U AMIC #### [facility] [address] [place] [address] Dr. [place], [place] [phone] [employer]: Damon Alvarado MD Leukocyte esterase Test strip Ql (U) Negative Normal NEG [facility] Comment on above: Performed By: #### U AMIC #### [facility] [address] [place] [address] Dr. [place], [place] [id number] [employer]: Damon Alvarado MD Nitrite,Ur Negative Normal NEG [facility] Comment on above: Performed By: #### U AMIC #### [facility] [address] [place], [place] [phone] [employer] Driver: Damon Alvarado MD PH,Ur 7.0 Normal 5.0-9.0 [facility] Comment on above: Performed By: #### U AMIC #### [facility] [address] [place] [address] Dr. [place], [place] [phone] [employer]: Damon Alvarado MD Protein Ql (U) Negative Normal NEG [facility] Comment on above: Performed By: #### U AMIC #### [facility] [address] [place], [place] [id number] [employer]: Damon Alvarado MD Spec. [place],Ur 1.020 Normal 1.010-1.020 [facility] Comment on above: Performed By: #### U AMIC #### [facility] [address] [place], [place] [phone] [employer]: Damon Alvarado MD Urine RBC's None Normal 0-2 [facility] Comment on above: Performed By: #### U AMIC #### [facility] [address] [place], [place] [id number] [employer] Driver: Damon Alvarado MD Urine WBC's None Normal 0-5 [facility] Comment on above: Performed By: #### U AMIC #### [facility] [address] [place], [place] [phone] [employer]: Damon Alvarado MD Urobilinogen,Ur Normal Normal NORM [facility] Comment on above: Performed By: #### U AMIC #### [address] [place], [place] [id number] [employer]: Damon Alvarado MD Amorphous sediment LM Ql (Urine sed) NOT REPORTED Normal [facility] Comment on above: Performed By: #### U AMIC #### [facility] [address] [place] [address] Dr. [place], [place] [phone] [employer]: Damon Alvarado MD Casts NOT REPORTED Normal [facility] Comment on above: Performed By: #### U AMIC #### [address] [place], [place] [phone] [employer]: Damon Alvarado MD Comment NOT REPORTED Normal [facility] Comment on above: Performed By: #### U AMIC #### [facility] [address] [place] [address] [employer]: Damon Alvarado MD Crystals LM Nom (Urine sed) NOT REPORTED Normal [facility] Comment on above: Performed By: #### U AMIC #### [facility] [address] [place] [address] [employer] Driver: Damon Alvarado MD Epithelial, Renal NOT REPORTED Normal 0 [facility] Comment on above: Performed By: #### U AMIC #### [facility] [address] [place] [address] [employer]: Damon Alvarado MD Mucus Strands NOT REPORTED Normal NONE [facility] Comment on above: Performed By: #### U AMIC #### [facility] [address] [place] [address] [place] [address] [employer]: Damon Alvarado MD Other Observations NOT REPORTED Normal NREQ [facility] Comment on above: Performed By: #### U AMIC #### [facility] [address] [place] [address] [employer]: Damon Alvarado MD Trichomonas NOT REPORTED Normal NONE [facility] Comment on above: Performed By: #### U AMIC #### [facility] [address] [place] [address] Dr. [place], [place] [phone] [employer]: Damon Alvarado MD Yeast NOT REPORTED Normal NONE [facility] Comment on above: Performed By: #### U AMIC #### [facility] [address] [place], [place] [phone] [employer]: Damon Avlarado MD Office Visit: Samina gudino 08-20-2016 Documentation of current medications (procedure) Done Invalid Interpretation Code [facility] Work Phone: Documentation of current medications (procedure) T Invalid Interpretation Code [facility] Work Phone: Fall risk assessment No Invalid Interpretation Code [facility] Work Phone: Tobacco smoking status NHIS Never Invalid Interpretation Code [facility] Work Phone: Tobacco use [facility] Never smoker Invalid Interpretation Code [facility] Work Phone: Office Visit: Spine Visit- L ow back painon 06-23-2016 Documentation of current medications (procedure) Done Invalid Interpretation Code [facility] Work Phone: Documentation of current medications (procedure) T Invalid Interpretation Code [facility] Work Phone: Office Visit: Spine Visit - Lower Back Painon 03-24-2016 Tobacco smoking status NHIS Never Invalid Interpretation Code [facility] Work Phone: Tobacco use [facility] Never smoker Invalid Interpretation Code [facility] Work Phone: Vital Signs Date Time Vital Sign Value Performing Clinician Facility 06-30-2024 08:31-0400 Body height 175.26 cm No Primary Care Physician [facility] 06-30-2024 08:31-0400 Body mass index (BMI) [Ratio] 26.2 kg/m2 No Primary Care Physician [facility] 06-30-2024 08:31-0400 Body weight 80.51 kg No Primary Care Physician [facility] 02-10-2024 07:04-0500 Body height 177.8 cm Jany Spisofiaenner 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 Work Phone: [facility] 02-10-2024 07:04-0500 Body mass index (BMI) [Ratio] 24.54 kg/m2 Jany Spieldenner 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 Work Phone: [facility] 02-10-2024 07:04-0500 Body temperature 98.71 [degF] Jany Spieldenner 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 Work Phone: [facility] 02-10-2024 07:04-0500 Body weight 77.56 kg Jany Spieldenner 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 Work Phone: [facility] 02-10-2024 07:04-0500 Diastolic blood pressure 80 mm[Hg] Jany Spieldenner 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 Work Phone: [facility] 02-10-2024 07:04-0500 Heart rate 77 /min Jany Spieldenner 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 Work Phone: [facility] 02-10-2024 07:04-0500 SaO2% (BldA) [Mass fraction] 98 % Jany Spieldenner 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 Work Phone: [facility] 02-10-2024 07:04-0500 Systolic blood pressure 121 mm[Hg] Jany Spieldenner 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 Work Phone: [facility] 10-13-2023 07:01-0400 Body height 177.8 cm Jany Spieldenner 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 Work Phone: [facility] 10-13-2023 07:01-0400 Body mass index (BMI) [Ratio] 23.33 kg/m2 Jany Spieldenner 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 Work Phone: [facility] 10-13-2023 07:01-0400 Body temperature 98.6 [degF] Jany Spieldenner 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 Work Phone: [facility] 10-13-2023 07:01-0400 Body weight 73.75 kg Jany Spieldenner 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 Work Phone: [facility] 10-13-2023 07:01-0400 Diastolic blood pressure 78 mm[Hg] Jany Spieldenner 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 Work Phone: [facility] 10-13-2023 07:01-0400 Heart rate 55 /min Jany Spieldenner 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 Work Phone: [facility] 10-13-2023 07:01-0400 SaO2% (BldA) [Mass fraction] 98 % Jany Spieldenner 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 Work Phone: [facility] 10-13-2023 07:01-0400 Systolic blood pressure 121 mm[Hg] Jany Spieldenner 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 Work Phone: [facility] 09-17-2023 16:01-0400 Body height 177.8 cm Jany Spieldenner 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 Work Phone: [facility] 09-17-2023 16:01-0400 Body mass index (BMI) [Ratio] 23.24 kg/m2 Jany Spieldenner 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 Work Phone: [facility] 09-17-2023 16:01-0400 Body temperature 99 [degF] Jany Spieldenner 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 Work Phone: [facility] 09-17-2023 16:01-0400 Body weight 73.48 kg Jany Spieldenner 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 Work Phone: [facility] 09-17-2023 16:01-0400 Diastolic blood pressure 74 mm[Hg] Jany Spieldenner 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 Work Phone: [facility] 09-17-2023 16:01-0400 Heart rate 64 /min Jany Spieldenner 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 Work Phone: [facility] 09-17-2023 16:01-0400 SaO2% (BldA) [Mass fraction] 97 % Jany Spieldenner 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 Work Phone: [facility] 09-17-2023 16:01-0400 Systolic blood pressure 120 mm[Hg] Jany Spieldenner 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 Work Phone: [facility] 09-08-2023 07:03-0400 Body height 177.8 cm Jany Spieldenner 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 Work Phone: [facility] 09-08-2023 07:03-0400 Body mass index (BMI) [Ratio] 23.09 kg/m2 Jany Spieldenner 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 Work Phone: [facility] 09-08-2023 07:03-0400 Body temperature 98.49 [degF] Jany Spieldenner 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 Work Phone: [facility] 09-08-2023 07:03-0400 Body weight 72.98 kg Jany Spieldenner 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 Work Phone: [facility] 09-08-2023 07:03-0400 Diastolic blood pressure 85 mm[Hg] Jany Spieldenner 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 Work Phone: [facility] 09-08-2023 07:03-0400 Heart rate 63 /min Jany Spieldenner 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 Work Phone: [facility] 09-08-2023 07:03-0400 SaO2% (BldA) [Mass fraction] 98 % Jany Spieldenner 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 Work Phone: [facility] 09-08-2023 07:03-0400 Systolic blood pressure 126 mm[Hg] Jany Spieldenner 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 Work Phone: [facility] 08-11-2023 15:19-0400 Diastolic blood pressure 84 mm[Hg] Jany Spieldenner 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 Work Phone: [facility] 08-11-2023 15:19-0400 Systolic blood pressure 127 mm[Hg] Jany Spieldenner 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 Work Phone: [facility] 08-11-2023 14:29-0400 Body height 177.8 cm Jany Spieldenner 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 Work Phone: [facility] 08-11-2023 14:29-0400 Body mass index (BMI) [Ratio] 23.39 kg/m2 Jany Spieldenner 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 Work Phone: [facility] 08-11-2023 14:29-0400 Body temperature 99.19 [degF] Jany Spieldenner 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 Work Phone: [facility] 08-11-2023 14:29-0400 Body weight 73.94 kg Jany Spieldenner 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 Work Phone: [facility] 08-11-2023 14:29-0400 Heart rate 96 /min Jany Spieldenner 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 Work Phone: [facility] 08-11-2023 14:29-0400 SaO2% (BldA) [Mass fraction] 98 % Jany Spieldenner 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 Work Phone: [facility] 07-30-2023 13:04-0400 Diastolic blood pressure 77 mm[Hg] Lu Castro 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 Work Phone: [facility] 07-30-2023 13:04-0400 Systolic blood pressure 123 mm[Hg] Lu Castro 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 Work Phone: [facility] 07-30-2023 12:36-0400 Body mass index (BMI) [Ratio] 23.83 kg/m2 Lu Castro 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 Work Phone: [facility] 07-30-2023 12:36-0400 Body temperature 99 [degF] Lu Castro 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 Work Phone: [facility] 07-30-2023 12:36-0400 Body weight 75.34 kg Lu Castro 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 Work Phone: [facility] 07-30-2023 12:36-0400 Heart rate 93 /min Lu Castro 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 Work Phone: [facility] 07-30-2023 12:36-0400 SaO2% (BldA) [Mass fraction] 98 % Lu Castro 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 Work Phone: [facility] 04-30-2023 06:48-0500 Body height 177.8 cm Jany Spieldenner 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 Work Phone: [facility] 04-30-2023 06:48-0500 Body mass index (BMI) [Ratio] 23.72 kg/m2 Jany Spieldenner 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 Work Phone: [facility] 04-30-2023 06:48-0500 Body temperature 98.6 [degF] Jany Spieldenner 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 Work Phone: [facility] 04-30-2023 06:48-0500 Body weight 74.98 kg Jany Spieldenner 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 Work Phone: [facility] 04-30-2023 06:48-0500 Diastolic blood pressure 72 mm[Hg] Jany Spieldenner 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 Work Phone: [facility] 04-30-2023 06:48-0500 Heart rate 66 /min Jany Spieldenner 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 Work Phone: [facility] 04-30-2023 06:48-0500 SaO2% (BldA) [Mass fraction] 98 % Jany Spieldenner 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 Work Phone: [facility] 04-30-2023 06:48-0500 Systolic blood pressure 117 mm[Hg] Jany Spieldenner 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 Work Phone: [facility] 01-28-2023 08:25-0500 Body height 177.8 cm Jany Spieldenner 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 Work Phone: [facility] 01-28-2023 08:25-0500 Body mass index (BMI) [Ratio] 23.55 kg/m2 Jany Spieldenner 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 Work Phone: [facility] 01-28-2023 08:25-0500 Body temperature 98.01 [degF] Jany Spieldenner 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 Work Phone: [facility] 01-28-2023 08:25-0500 Body weight 74.44 kg Jany Spieldenner 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 Work Phone: [facility] 01-28-2023 08:25-0500 Diastolic blood pressure 79 mm[Hg] Jany Spieldenner 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 Work Phone: [facility] 01-28-2023 08:25-0500 Heart rate 70 /min Jany Spisofiaenner 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 Work Phone: [facility] 01-28-2023 08:25-0500 SaO2% (BldA) [Mass fraction] 98 % Jany Spieldenner 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 Work Phone: [facility] 01-28-2023 08:25-0500 Systolic blood pressure 130 mm[Hg] Jany Spisofiaenner 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 Work Phone: [facility] 01-07-2023 08:59-0500 Body height 180.3 cm Vanita Melendez MD Work Phone: [facility] 01-07-2023 08:59-0500 Body mass index (BMI) [Ratio] 23.01 kg/m2 Vanita Melendez MD Work Phone: [facility] 01-07-2023 08:59-0500 Body weight 74.84 kg Vanita Melendez MD Work Phone: [facility] 08-29-2019 14:24-0400 BMI (Body Mass Index) 23.01 kg/m2 Michelle Carrillo [facility] 08-29-2019 14:24-0400 Body weight 74.84 kg Michelle [facility] 08-29-2019 14:24-0400 Height 180.3 cm Michelle [facility] 08-20-2016 09:20-0400 BMI (Body Mass Index) 21.92 kg/m2 Gemma Nuñez LPN [facility] Work Phone: 08-20-2016 09:20-0400 Body Temperature 97.7 [degF] Gemma Nuñez LPN [facility] kayla Work Phone: 08-20-2016 09:20-0400 BP Diastolic 72 mm[Hg] Gemma Nuñez LPN [facility] Work Phone: 08-20-2016 09:20-0400 BP Systolic 120 mm[Hg] Gemma Nuñez LPN [facility] Work Phone: 08-20-2016 09:20-0400 Height 177.8 cm Gemma Nuñez LPN [facility] Work Phone: 08-20-2016 09:20-0400 Pulse (Heart Rate) 81 /min Gemma Nuñez LPN [facility] Work Phone: 08-20-2016 09:20-0400 Pulse Oximetry 98 % Gemma Nuñez LPN [facility] Work Phone: 08-20-2016 09:20-0400 Respiratory Rate 12 /min Gemma Nuñez LPN [facility] kayla Work Phone: 08-20-2016 09:20-0400 Weight 69.31 kg Gemma Nuñez LPN [facility] Work Phone: 12-10-2015 15:39-0400 Weight 70.31 kg Chloe Dobson [facility] Work Phone: 05-30-2015 13:31-0400 BMI (Body Mass Index) 21.85 kg/m2 Chloe Dobson DC [facility] Work Phone: 05-30-2015 13:31-0400 Height 175.26 cm Chloe Dobson DC [facility] Work Phone: Encounters Encounter Date Encounter Type Care Provider Facility Start: 07-19-2024 End: 07-19-2024 Refill Jany Giron 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 Work Phone: [facility] Start: 07-15-2024 End: 07-15-2024 ambulatory No Primary Care Physician [facility] Work Phone: Start: 07-15-2024 End: 07-15-2024 Patient encounter procedure Thu ESQUIVEL [facility] Work Phone: Start: 07-15-2024 End: 07-15-2024 ambulatory No Primary Care Physician Facility:[facility] Start: 06-30-2024 End: 06-30-2024 Patient encounter procedure Thu ESQUIVEL -[facility] Work Phone: Start: 06-30-2024 End: 06-30-2024 ambulatory No Primary Care Physician Facility:[facility] Start: 02-10-2024 End: 02-10-2024 Office outpatient visit 15 minutes Jany Giron 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 Work Phone: [facility] Comment on above: HEMALATHA (generalized anx iety disorder) (Primary Dx); Upper respiratory tract infection, unspecified type Start: 02-10-2024 End: 02-10-2024 ambulatory JANY MARTINR [facility] Start: 10-13-2023 End: 10-13-2023 Periodic preventive med est patient 18-39 yrs Jany Giron 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 Work Phone: [facility] Comment on above: HEMALATHA (generalized anx iety disorder) Start: 10-13-2023 End: 10-13-2023 ambulatory JANY MALONE SPISOFIAENNER [facility] Start: 09-19-2023 End: 09-19-2023 Emergency department patient visit VIJI YUNG Facility:[facility] Start: 09-17-2023 End: 09-17-2023 Office outpatient visit 15 minutes Jany Giron 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 Work Phone: [facility] Comment on above: HEMALATHA (generalized anx iety disorder) (Primary Dx); Viral upper respiratory tract infection Start: 09-17-2023 End: 09-17-2023 ambulatory JANY FAISAL MARTINR [facility] Start: 09-08-2023 End: 09-08-2023 Office outpatient visit 15 minutes Jany Giron 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 Work Phone: [facility] Comment on above: HEMALATHA (generalized anx iety disorder) Start: 09-08-2023 End: 09-08-2023 ambulatory JANY FAISAL JANEEENNER [facility] Start: 08-11-2023 End: 08-11-2023 Office outpatient visit 15 minutes Jany Giron 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 Work Phone: [facility] Comment on above: HEMALATHA (generalized anx iety disorder) (Primary Dx) Start: 08-11-2023 End: 08-11-20[facility] Start: 07-30-2023 End: 07-30-2023 Office outpatient visit 15 minutes Lu Castro 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 Work Phone: [facility] Comment on above: HEMALATHA (generalized anx iety disorder) (Primary Dx) Start: 07-30-2023 End: 07-30-2023 ambulatory LU HUSSEIN MATTHEW [facility] Start: 06-19-2023 End: 06-23-2023 ambulatory JANY FAISAL JANEEAMAYATeresita [facility] Start: 04-30-2023 End: 04-30-2023 Office outpatient visit 15 minutes Jany Giron 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 Work Phone: [facility] Comment on above: HEMALATHA (generalized anx iety disorder) (Primary Dx); Leukopenia, unspecified type Start: 04-30-2023 End: 04-30-2023 [facility] Start: 03-24-2023 End: 03-24-2023 Office outpatient visit 15 minutes Vanita Melendez MD Work Phone: [facility] Comment on above: Lumbar degenerative disc disease (Primary Dx) Start: 03-24-2023 End: 03-24-2023 Refill Vanita Melendez MD Work Phone: [facility] Comment on above: Lumbar degenerative disc disease (Primary Dx) Start: 03-19-2023 End: 03-19-2023 ambulatory VANITA MELENDEZ [facility] Start: 03-11-2023 Documentation procedure Rosanna Godinez MA [facility] Comment on above: Care coordination BH P Start: 03-09-2023 End: 03-09-2023 Office outpatient visit 15 minutes Vanita Melendez MD Work Phone: [facility] Comment on above: Lumbar radiculopathy (Primary Dx); Lumbar degenerative disc disease Start: 03-09-2023 End: 03-09-2023 ambulatory [facility] Start: 03-02-2023 End: 03-06-2023 ambulatory [facility] Start: 02-24-2023 End: 02-28-2023 ambulatory Vanita Melendez MD Work Phone: [facility] Comment on above: Lumbosacral pain (Pr imary Dx) Start: 02-19-2023 End: 02-23-2023 ambulatory Vanita Melendez MD Work Phone: [facility] Comment on above: Lumbosacral pain (Pr imary Dx) Start: 02-18-2023 End: 02-18-2023 ambulatory JANY MALONE [facility] Ambulatory Start: 02-17-2023 End: 02-21-2023 ambulatory Vanita Melendez MD Work Phone: [facility] Comment on above: Lumbosacral pain (Pr imary Dx) Start: 02-12-2023 End: 02-16-2023 ambulatory Vanita eMlendez MD Work Phone: [facility] Comment on above: Lumbosacral pain (Pr imary Dx) Start: 02-10-2023 End: 02-14-2023 ambulatory Vanita Melendez MD Work Phone: [facility] Comment on above: Lumbosacral pain (Pr imary Dx) Start: 02-06-2023 Documentation procedure Rosanna Godinez MA [facility] Comment on above: Care coordination P Start: 02-05-2023 End: 02-09-2023 ambulatory Vanita Melendez MD Work Phone: [facility] Comment on above: Sprain of ligament o f lumbosacral joint, initial encounter [S33.9XXA] (Primary Dx) Start: 02-03-2023 End: 02-07-2023 ambulatory Vanita Melendez MD Work Phone: [facility] Comment on above: Sprain of ligament o f lumbosacral joint, initial encounter (Primary Dx) Start: 01-29-2023 End: 01-29-2023 Orders Only Jany Giron CNP Work Phone: [facility] Comment on above: Leukopenia, unspecif ied type (Primary Dx) Care coordination P Start: 01-28-2023 End: 02-01-[address] [facility] Start: 01-28-2023 End: 02-01-2023 Encounter for general adult medical examination without abnormal findings Keenan [facility] Start: 01-28-2023 End: 01-28-2023 Office outpatient new 45 minutes Jany Giron CNP Work Phone: [facility] Comment on above: Healthcare maintenan ce (Primary Dx); Heart palpitations; HEMALATHA (generalized anxiety disorder) Start: 01-28-2023 End: 01-28-2023 Patient encounter status Jany Giron CNP Work Phone: [facility] Work Phone: Start: 01-27-2023 End: 01-31-2023 ambulatory Vanita Melendez MD Work Phone: [facility] Comment on above: Sprain of ligament o f lumbosacral joint, initial encounter [S33.9XXA] (Primary Dx) Start: 01-26-2023 End: 01-26-2023 Emergency department patient visit MARGARITARA JOSE C CROSS [facility] Start: 01-19-2023 End: 01-23-2023 ambulatory Vanita Melendez MD Work Phone: [facility] Comment on above: Sprain of ligament o f lumbosacral joint, initial encounter Start: 01-07-2023 Orders Only Mila Christine LPN [facility] Comment on above: Sprain of ligament o f lumbosacral joint, initial encounter (Primary Dx) Start: 01-07-2023 End: 01-07-2023 Office outpatient new 30 minutes Margaritara Jose C Cross [facility] Work Phone: [facility] Comment on above: Lumbar degenerative disc disease (Primary Dx); Lumbar radiculopathy; Chronic pain of left knee Start: 12-22-2022 End: 12-22-2022 ambulatory [facility] Start: 11-15-2021 End: 11-18-[address] [facility] Start: 11-15-2021 End: 11-17-2021 Subsequent hospital visit by physician [facility] Ultrasound Room [facility] Ultrasound Comment on above: RUQ abdominal pain Start: 12-05-2020 End: 12-05-2020 Emergency department patient visit [facility] Start: 09-21-2019 End: 09-21-2019 Documentation procedure Michelle Carrillo Work Phone: [facility] Start: 09-16-2019 End: 09-16-2019 Subsequent hospital visit by physician Michelle Carrillo Work Phone: [facility] Comment on above: Acute medial meniscu s tear of left knee, initial encounter Start: 08-29-2019 End: 08-29-2019 Office outpatient new 30 minutes Michelle Carrillo Work Phone: [facility] Comment on above: Osteochondral defect of femoral condyle (Primary Dx) Start: 06-13-2018 End: 06-13-2018 Emergency department patient visit [facility] Facility:[facility] Procedures Date Procedure Procedure Detail Performing Clinician Start: 07-15-2024 MRI of lumbar spine No Primary Care Physician Start: 06-30-2024 X-ray of lumbosacral spine No Primary Care Physician Start: 04-30-2023 Adult depression scr eening assessment Jany Mccormackginger 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 Work Phone: Start: 03-11-2023 Adult depression scr eening assessment Rosanna Godinez MA Start: 12-19-2022 Adult depression scr eening assessment Mila Christine LPN Start: 11-15-2021 Us abdominal real ti me w/image limited Gela Fry [employer] IN[employer]UMENT TECHNICIAN - 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 Work Phone: Start: 06-23-2016 End: 06-23-2016 Chiropract manj 1-2 regions Chloe B Dossi DC Work Phone: Start: 04-16-2016 End: 04-16-2016 Chiropractic manipulation Chloe B Dossi DC Work Phone: Start: 04-07-2016 End: 04-07-2016 Chiropract manj 1-2 regions Chloe B Dossi DC Work Phone: Start: 03-31-2016 End: 03-31-2016 Chiropract manj 1-2 regions Chloe B Dossi DC Work Phone: Start: 03-27-2016 End: 03-27-2016 Chiropract manj 1-2 regions Chloe B Dossi DC Work Phone: Start: 03-24-2016 End: 03-24-2016 Chiropract manj 1-2 regions Chloe B Dossi DC Work Phone: Start: 03-20-2016 End: 03-20-2016 Chiropract manj 1-2 regions Chloe B Dossi DC Work Phone: Start: 03-06-2016 End: 03-06-2016 Chiropract manj 1-2 regions Chloe B Dossi DC Work Phone: Start: 12-17-2015 End: 12-17-2015 Chiropract manj 1-2 regions Mari Schultz Start: 12-11-2015 End: 12-11-2015 Chiropract manj 1-2 regions Chloe Dobson DC Work Phone: Start: 12-10-2015 End: 12-10-2015 Chiropract manj 1-2 regions Chloe Garciasi DC Work Phone: Plan of Treatment Date Care Activity Detail Author Start: 09-18-2033 Tetanus vaccination Tetanus: Every 1 0yrs [facility] Start: 09-01-2025 DTaP/Tdap/Td vaccine (5 - Td or Tdap) DTaP/Tdap/Td vaccine (5 - Td or Tdap) [facility] Start: 09-01-2025 Tetanus vaccination Tetanus: Every 1 0yrs [facility] Start: 10-24-2024 Influenza vaccination Influenz a Vaccine (Season Ended) [facility] Start: 10-12-2024 Depression screening using PHQ-9 (Patient Health Questionnaire 9) score Depression Screening/Follow-Up (PHQ-2/9) [facility] Start: 10-12-2024 History and physical examination, annual for health maintenance Wellness Visit [facility] Start: 08-10-2024 End: 08-10-2024 Patient encounter procedure 08/10/2024 7:00 AM EDT Office Visit [facility] [address] [place] [phone] Alena Chou MD [address] [place] [address] [facility] Start: 04-29-2024 Depression screening using PHQ-9 (Patient Health Questionnaire 9) score [facility] Start: 03-11-2024 Depression screening using PHQ-9 (Patient Health Questionnaire 9) score Depression Screening (PHQ-2/9) [facility] Start: 02-10-2024 End: 02-10-2024 Patient encounter procedure 02/10/2024 7:00 AM EST Office Visit [facility] [address] [place] [phone] Jany Giron [employer]CRETE 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 [address] [place] [address] [facility] Start: 12-20-2023 Depression screening using PHQ-9 (Patient Health Questionnaire 9) score Depression Screening (PHQ-2/9) [facility] Start: 11-10-2023 End: 11-10-2023 Patient encounter procedure 11/10/2023 2:20 PM EDT Office Visit [facility] [address] [place] [address] Jany Giron [employer]CRETE 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 [address] [place] [address] [facility] Start: 11-04-2023 End: 11-04-2023 Patient encounter procedure 11/04/2023 7:00 AM EDT Office Visit [facility] [address] [place] [address] Jany Giron [employer]CRETE 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 [address] [place] [address] [facility] Start: 10-25-2023 Influenza vaccination [facility] Start: 10-13-2023 End: 10-13-2023 Patient encounter procedure 10/13/2023 7:00 AM EDT Office Visit [facility] [address] [place] [address] Jany Giron [employer]CRETE 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 [address] [place] [address] [facility] Start: 09-15-2023 End: 09-15-2023 Patient encounter procedure 09/15/2023 8:00 AM EDT Office Visit [facility] [address] [place] [address] Jany Giron [employer]CRETE 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 [address] [place] [address] [facility] Start: 09-08-2023 End: 09-08-2023 Patient encounter procedure 09/08/2023 7:20 AM EDT Office Visit [facility] [address] [place] [phone] Jany Giron CONCRETE 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 [address] [place] [address] [facility] Start: 08-23-2023 Influenza vaccination Sequenti al Influenza Vaccine (#1) [facility] Comment on above: Postponed from 10/24 (Patient Refused) Start: 04-30-2023 End: 04-30-2023 Patient encounter procedure 04/30/2023 7:00 AM EST Office Visit [facility] [address] [place] [phone] Jany Giron CNP [address] [place] [address] [facility] Start: 03-30-2023 End: 03-30-2023 ambulatory 03/30/2023 3:30 PM EST Patient Outreach [facility] [address] [place] [phone] [facility] Start: 03-19-2023 End: 03-19-2023 Patient encounter procedure 03/19/2023 7:30 AM EST Appointment [facility] [address] [place] [phone] Vanita Melendez MD [address] [place] [address] [facility] Start: 02-24-2023 End: 02-24-2023 ambulatory 02/24/2023 4:45 PM EST Treatment [facility] [address] [place] [phone] Vanita Melendez MD [address] [place] [address] Tom Barker, PT Discharge Disposition: Home [facility] Start: 02-19-2023 End: 02-19-2023 ambulatory 02/19/2023 4:45 PM EST Treatment [facility] [address] [place] [phone] Vanita Melendez MD [address] [place] [address] Tom Barker, PT [facility] Start: 02-18-2023 End: 02-18-2023 Patient encounter procedure 02/18/2023 8:00 AM EST Office Visit [facility] [address] [place] [address] Tamiko Rasmussen, CONCRETE 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 [address] [place] [address] [facility] Start: 02-17-2023 End: 02-17-2023 ambulatory 02/17/2023 4:45 PM EST Treatment [facility] [address] [place] [phone] Vanita Melendez MD [address] [place] [address] Tom Barker, PT [facility] Start: 02-12-2023 End: 02-12-2023 ambulatory 02/12/2023 4:45 PM EST Treatment [facility] [address] [place] [phone] Vanita Melendez MD [address] [place] [address] Cesilia Sotelo PTA [facility] Start: 02-10-2023 End: 02-10-2023 ambulatory 02/10/2023 4:45 PM EST Treatment [facility] [address] [place] [phone] Vanita Melendez MD [address] [place] [address] Livier Kirkpatrick PTA [facility] Start: 02-05-2023 End: 02-05-2023 ambulatory 02/05/2023 4:45 PM EST Treatment [facility] [address] [place], [place] [phone] Vanita Melendez MD [address] [place], [place] [phone] Tom Barker, PT [facility] Start: 02-03-2023 End: 02-03-2023 ambulatory 02/03/2023 4:45 PM EST Treatment [facility] [address] [place], [place] [phone] Vanita Melendez MD [address] [place], [place] [phone] Cesilia Sotelo PTA [facility] Start: 01-29-2023 End: 01-29-2023 ambulatory 01/29/2023 4:45 PM EST Treatment [facility] [address] [place] [phone] Vanita Melendez MD [address] [place] [address] Cesilia Sotelo PTA [facility] Start: 01-29-2023 End: 01-29-2023 Patient encounter procedure 01/29/2023 9:30 AM EST Appointment [facility] [address] [place] [address] [place] [phone] Jany Giron, [address] [address] [facility] Start: 01-28-2023 End: 01-28-2023 Patient encounter procedure 01/28/2023 8:40 AM EST Office Visit [facility] [address] [place] [phone] Jany Giron CNP [address] [place] [address] [facility] Start: 01-27-2023 End: 01-27-2023 ambulatory 01/27/2023 4:45 PM EST Treatment [facility] [address] [place] [phone] Vanita Melendez MD [address] [place] [address] Livier Kirkpatrick PTA Discharge Disposition: Home [facility] Start: 10-24-2022 Influenza vaccination Sequenti al Influenza Vaccine (#1) [facility] Start: 09-23-2021 Influenza vaccination Flu vaccine (# 1) [facility] Start: 03-23-2021 COVID-19 Vaccine (3 - Booster for Pfizer series) COVID-19 Vaccine (3 - Booster for Pfizer series) [facility] Start: 10-25-2019 Influenza vaccinatio n given Sequential Influenza Vaccine (#1) [facility] Start: 09-26-2019 End: 09-26-2019 Appointment 09/26/2019 Appointment Radiology Michelle Carrillo, CONCRETE 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 [address] [place] [address] [phone] [facility] Start: 08-20-2016 End: 08-20-2016 Appointment Appointment [facility] Work Phone: Start: 06-23-2016 End: 06-23-2016 Appointment Appointment [facility] Work Phone: Start: 04-07-2016 End: 04-07-2016 Follow up Appt 2x/Month Follow up Appt 2x/Month [facility] Work Phone: Start: 03-31-2016 End: 03-31-2016 Follow up Appt 1x/week Follow up Appt 1x/week [facility] Work Phone: Start: 03-27-2016 End: 03-27-2016 Follow up Appt 2x/Month Follow up Appt 2x/Month [facility] Work Phone: Start: 03-24-2016 End: 03-24-2016 Follow up Appt 2x/Month Follow up Appt 2x/Month [facility] Work Phone: Start: 03-20-2016 End: 03-20-2016 Follow up Appt 2x/Month Follow up Appt 2x/Month [facility] Work Phone: Start: 03-20-2016 End: 03-20-2016 Physical Therapy General Physical Therapy General Rehab [facility], [address] [place] [address], [phone] [facility] Work Phone: Start: 03-06-2016 End: 03-06-2016 Follow up Appt 3x/week Follow up Appt 3x/week [facility] Work Phone: Start: 12-17-2015 End: 12-17-2015 Follow up Appt 2x/week Follow up Appt 2x/week [facility] Work Phone: Start: 12-11-2015 End: 12-11-2015 Follow up Appt 3x/week Follow up Appt 3x/week [facility] Work Phone: Start: 12-10-2015 End: 12-10-2015 Follow up Appt 3x/week Follow up Appt 3x/week [facility] Work Phone: Start: 06-20-2015 End: 06-20-2015 Physical Therapy General Physical Therapy [facility], [address] [place] [address], [phone] [facility] Work Phone: Start: 05-30-2015 End: 05-30-2015 X-ray exam l-s spine bending X-Ray, Spine, Lumbar, complete with bending views [facility] Work Phone: Start: 2014 Hepatitis C antibody , confirmatory test Hepatitis C Screening [facility] Start: 2014 Hepatitis C screening B ON [facility] Start: 12-28-2011 HIV screening [facility] Start: 2008 Depression Screen Depression Screen [facility] Start: 12-28-2007 HPV vaccine (1 - Mal e 2-dose series) HPV vaccine (1 - Male 2-dose series) [facility] Start: 12-28-2007 Vaccination for gena n papillomavirus HPV Vaccines (1 - Male 2-dose series) [facility] Start: 12-28-1999 History and physical examination, annual for health maintenance Wellness Visit [facility] Start: 1997 Varicella vaccine (1 of 2 - 2-dose childhood series) Varicella vaccine (1 of 2 - 2-dose childhood series) [facility] Start: 1996 Depression screening using PHQ-9 (Patient Health Questionnaire 9) score Depression Screening (PHQ9) [facility] End: 03-31-2024 24 Hour ECG Holter monitor- up to 48 hour Cardiac Services Routine Heart palpitations 1 Occurrences starting 01/28/2023 until 03/31/2024 [facility] Comment on above: 1 Occurrences starti ng 01/28/2023 until 03/31/2024 End: 01-29-2024 Complete blood count with white cell differential, manual CBC and Differential Lab Routine Healthcare maintenance 1 Occurrences starting 01/28/2023 until 01/29/2024 [facility] Comment on above: 1 Occurrences starti ng 01/28/2023 until 01/29/2024 Complete blood count with white cell differential, manual CBC and Differential Lab Routine Healthcare maintenance 01/28/2023 9:08 AM EST [facility] End: 01-30-2024 Complete blood count with white cell differential, manual CBC and Differential Lab Routine Leukopenia, unspecified type 1 Occurrences starting 01/29/2023 until 01/30/2024 [facility] Work Phone: Comment on above: 1 Occurrences starti ng 01/29/2023 until 01/30/2024 End: 10-12-2024 Complete blood count with white cell differential, manual CBC and Differential Lab Routine HEMALATHA (generalized anxiety disorder) 1 Occurrences starting 10/13/2023 until 10/12/2024 [facility] Work Phone: Comment on above: 1 Occurrences starti ng 10/13/2023 until 10/12/2024 End: 01-29-2024 Comprehensive metabolic 2000 panel - Serum or Plasma Comprehensive Metabolic Panel Lab Routine Healthcare maintenance 1 Occurrences starting 01/28/2023 until 01/29/2024 [facility] Comment on above: 1 Occurrences starti ng 01/28/2023 until 01/29/2024 Comprehensive metabo lic 2000 panel - Serum or Plasma Comprehensive Metabolic Panel Lab Routine Healthcare maintenance 01/28/2023 9:08 AM EST [facility] End: 10-12-2024 Comprehensive metabolic 2000 panel - Serum or Plasma Comprehensive Metabolic Panel Lab Routine HEMALATHA (generalized anxiety disorder) 1 Occurrences starting 10/13/2023 until 10/12/2024 [facility] Comment on above: 1 Occurrences starti ng 10/13/2023 until 10/12/2024 End: 01-29-2024 Hepatitis C antibody measurement Hepatitis C Antibody Lab Routine Healthcare maintenance 1 Occurrences starting 01/28/2023 until 01/29/2024 [facility] Comment on above: 1 Occurrences starti ng 01/28/2023 until 01/29/2024 Hepatitis C antibody measurement Hepatitis C Antibody Lab Routine Healthcare maintenance 01/28/2023 9:08 AM EST [facility] End: 01-29-2024 Human immunodeficiency virus antibody test HIV Antibody (HIV1/HIV2) Lab Routine Healthcare maintenance 1 Occurrences starting 01/28/2023 until 01/29/2024 [facility] Work Phone: Comment on above: 1 Occurrences starti ng 01/28/2023 until 01/29/2024 Human immunodeficien cy virus antibody test HIV Antibody (HIV1/HIV2) Lab Routine Healthcare maintenance 01/28/2023 9:08 AM EST [facility] End: 01-29-2024 Lipid 1996 panel - Serum or Plasma Lipid Panel Lab Routine Healthcare maintenance 1 Occurrences starting 01/28/2023 until 01/29/2024 [facility] Comment on above: 1 Occurrences starti ng 01/28/2023 until 01/29/2024 Lipid 1996 panel - S corona or Plasma Lipid Panel Lab Routine Healthcare maintenance 01/28/2023 9:08 AM EST [facility] End: 10-12-2024 Lipid 1996 panel - Serum or Plasma Lipid Panel Lab Routine HEMALATHA (generalized anxiety disorder) 1 Occurrences starting 10/13/2023 until 10/12/2024 [facility] Comment on above: 1 Occurrences starti ng 10/13/2023 until 10/12/2024 End: 09-16-2019 MR Knee Left Without Contrast MR Knee Left Without Contrast Imaging Routine Acute medial meniscus tear of left knee, initial encounter Once for 1 Occurrences starting 09/16/2019 until 09/16/2019 [facility] Comment on above: Once for 1 Occurrenc es starting 09/16/2019 until 09/16/2019 MR Knee Left Without Contrast MR Knee Left Without Contrast Imaging Routine Acute medial meniscus tear of left knee, initial encounter 09/16/2019 6:18 PM EDT [facility] End: 03-09-2024 MR Lumbar spine WO contrast MR Lumbar Spine Without Contrast Imaging Routine Lumbar radiculopathy Lumbar degenerative disc disease 1 Occurrences starting 03/09/2023 until 03/09/2024 [facility] Work Phone: Comment on above: 1 Occurrences starti ng 03/09/2023 until 03/09/2024 Patient referral [facility] Work Phone: End: 01-29-2024 Thyrotropin [Units/volume] in Serum or Plasma TSH with Reflex Free T4 Lab Routine Healthcare maintenance 1 Occurrences starting 01/28/2023 until 01/29/2024 [facility] Comment on above: 1 Occurrences starti ng 01/28/2023 until 01/29/2024 Thyrotropin [Units/volume] in Serum or Plasma TSH with Reflex Free T4 Lab Routine Healthcare maintenance 01/28/2023 9:08 AM EST [facility] End: 10-12-2024 Thyrotropin [Units/volume] in Serum or Plasma TSH with Reflex Free T4 Lab Routine HEMALATHA (generalized anxiety disorder) 1 Occurrences starting 10/13/2023 until 10/12/2024 [facility] Comment on above: 1 Occurrences starti ng 10/13/2023 until 10/12/2024 Immunizations Immunization Date Immunization Notes Care Provider Shane burnett 10-04-2015 influenza, seasonal, injectable, preservative free Jany Giron CNP Work Phone: [facility] 10-04-2015 influenza virus vacc ine, unspecified formulation Lu Matthew CONCRETE 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 Work Phone: [facility] 09-02-2015 meningococcal polysaccharide (groups A, C, Y and W-135) diphtheria toxoid conjugate vaccine (MCV4P) Jany Spieldenner CONCRETE 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 Work Phone: [facility] 09-02-2015 tetanus toxoid, redu luiz diphtheria toxoid, and acellular pertussis vaccine, adsorbed Jany Spieldenner CONCRETE 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 Work Phone: [facility] 11-06-2008 influenza virus vacc ine, whole virus Jany Spieldenner CONCRETE 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 Work Phone: [facility] 09-05-2008 meningococcal polysaccharide (groups A, C, Y and W-135) diphtheria toxoid conjugate vaccine (MCV4P) Jany Spieldenner CONCRETE 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 Work Phone: [facility] 09-05-2008 tetanus toxoid, redu luiz diphtheria toxoid, and acellular pertussis vaccine, adsorbed Jany Spieldenner CONCRETE 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 Work Phone: [facility] 10-26-2002 measles, mumps and r ubella virus vaccine Jany Spieldenner CONCRETE 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 Work Phone: [facility] 10-26-2002 poliovirus vaccine, inactivated Jany Spieldenner CONCRETE 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 Work Phone: [facility] 12-06-2001 diphtheria, tetanus toxoids and acellular pertussis vaccine, unspecified formulation Jany Spieldenner CONCRETE 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 Work Phone: [facility] 03-01-1998 diphtheria, tetanus toxoids and acellular pertussis vaccine, unspecified formulation Jany Spieldenner CONCRETE 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 Work Phone: [facility] 03-01-1998 haemophilus influenz ae type b vaccine, PRP-T conjugate Jany Spieldenner CONCRETE 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 Work Phone: [facility] 03-01-1998 measles, mumps and r ubella virus vaccine Jany Spieldenner CONCRETE 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 Work Phone: [facility] 03-01-1998 poliovirus vaccine, inactivated Jany Spieldenner CONCRETE 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 Work Phone: [facility] 08-10-1997 diphtheria, tetanus toxoids and acellular pertussis vaccine, unspecified formulation Jany Spieldenner CONCRETE 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 Work Phone: [facility] 08-10-1997 hepatitis B vaccine, pediatric or pediatric/adolescent dosage Jany Spieldenner CONCRETE 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 Work Phone: [facility] 05-18-1997 diphtheria, tetanus toxoids and acellular pertussis vaccine, unspecified formulation Jany Spieldenner CONCRETE 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 Work Phone: [facility] 05-18-1997 haemophilus influenz ae type b vaccine, PRP-T conjugate Jany Spieldenner CONCRETE 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 Work Phone: [facility] 05-18-1997 poliovirus vaccine, inactivated Jany Spieldenner CONCRETE 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 Work Phone: [facility] 03-03-1997 diphtheria, tetanus toxoids and acellular pertussis vaccine, unspecified formulation Jany Spieldenner CONCRETE 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 Work Phone: [facility] 03-03-1997 haemophilus influenz ae type b vaccine, PRP-T conjugate Jany Spieldenner CONCRETE 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 Work Phone: [facility] 03-03-1997 hepatitis B vaccine, pediatric or pediatric/adolescent dosage Jany Spieldenner CONCRETE 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 Work Phone: [facility] 03-03-1997 poliovirus vaccine, inactivated Jany Spieldenner CONCRETE 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 Work Phone: [facility] [facility] hepatitis B vaccine, pediatric or pediatric/adolescent dosage Jany Spieldenner 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 Work Phone: [facility] Payers Date Payer Category Payer Self-pay [id number] 2023 Managed Care PPO (unspecified) [facility] [id number] 2023 Unknown [id number] 2017 Medicaid (Managed Care) [employer] [id number] 2017 Unknown [id number] [id number]. 7.3.933147.315 2017 Unknown [id number]. 1.13.385.2. 7.3.208205.315 2015 Unknown [id number] 1996 Unknown [id number] 2.16.840.1.965662.3.579.2. 627 1996 Unknown [id number] 2.16.840.1.160220.3.579.2. 173 1996 Unknown [id number] 2.16.840.1.778018.3.579.2. 173 1996 Unknown [id number] 2.16.840.1.752567.3.579.2. 902 1996 Unknown [id number] 2.16.840.1.058120.3.579.2. 902 1996 Unknown [id number] 2.16.840.1.408669.3.579.2 1996 Unknown [id number] 2.16.840.1.039948.3.579.2. 1996 Unknown [id number] 2.16.840.1.146067.3.579.2 1996 Unknown [id number] 2.16.840.1.874363.3.579.2 1996 Unknown [id number] 2.16.840.1.701631.3.579.2 1996 Unknown [id number] 2.16.840.1.998288.3.579.2 1996 Unknown [id number] 2.16.840.1.765960.3.579.2 1996 Unknown [id number] 2.16.840.1.244748.3.579.2 1996 Unknown [id number] 2.16.840.1.922874.3.579.2 1996 Unknown [id number] 2.16.840.1.640998.3.579.2 1996 Unknown [id number] 2.16.840.1.827699.3.579.2 1996 Unknown [id number] 2.16.840.1.336579.3.579.2 1996 Unknown [id number] 2.16.840.1.153926.3.579.2 1996 Unknown [id number] 2.16.840.1.306286.3.579.2. 1996 Unknown [id number] 2.16.840.1.314374.3.579.2 1996 Unknown [id number] 2.16.840.1.761078.3.579.2. 1996 Unknown [id number] 2.16.840.1.429393.3.579.2. 903 1996 Unknown [id number] 2.16.840.1.047689.3.579.2. 903 1996 Unknown [id number] 2.16.840.1.547139.3.579.2. 903 1996 Unknown [id number] 2.16.840.1.453126.3.579.2. 903 1996 Unknown [id number] 2.16.840.1.985546.3.579.2. 903 1996 Unknown [id number] 2.16.840.1.032050.3.579.2. 903 1996 Unknown [id number] 2.16.840.1.147190.3.579.2. 903 1996 Unknown [id number] 2.16.840.1.726737.3.579.2. 903 1996 Unknown [id number] 2.16.840.1.651833.3.579.2. 903 1996 Unknown [id number] 2.16.840.1.230070.3.579.2. 903 Medicaid [id number]. 1.13.385.2. 7.3.877556.315 Unknown [id number] 2.16.840.1.591790.3.579.2. 462 Unknown [id number] 2.16.840.1.902971.3.579.2. 462 Unknown [id number] 2.16.840.1.982610.3.579.2. 462 Social History Date Type Detail Facility Start: 08-30-2019 End: 01-28-2023 Tobacco smoking status NHIS Never smoker [facility] Start: 08-30-2019 End: 02-10-2024 Alcohol intake Current drinker of alcohol (finding) [facility] Start: 08-29-2019 History SDOH Alcohol Frequency 2 [facility] Start: 1995 Sex Assigned At Not on file [facility] Exposure to SARS-CoV -2 (event) Not sure [facility] Start: 12-05-2020 History SDOH Alcohol Comment socially [facility] [employer] Work Phone: Start: 12-19-2022 Tobacco use and exposure Smokeless tobacco non-user [facility] Start: 12-19-2022 End: 10-13-2023 History of Social function [facility] Start: 12-19-2022 End: 10-13-2023 Humiliation, Afraid, Rape, and Kick questionnaire [HARK] [facility] Within the last year , have you been afraid of your partner or ex-partner? No [facility] Are you now , , , , never or living with a partner? Never [facility] How often to you hav e a drink containing alcohol? Never [facility] How many standard dr inks containing alcohol do you have on a typical day? Patient does not drink [facility] How often do you hav e 6 or more drinks on 1 occasion? Less than monthly [facility] Do you feel stress - tense, restless, nervous, or anxious, or unable to sleep at night because your mind is troubled all the time - these days [OSQ] Not at all [facility] (I/We) worried wheth er (my/our) food would run out before (I/we) got money to buy more. Never true [facility] Start: 12-19-2022 Alcohol Comment social [facility] Start: 07-02-2017 Gender identity Identifies as male gender (finding) [facility] Start: 07-02-2017 Sexual orientation Heterosexual (finding) [facility] Start: 01-26-2023 Tobacco use and exposure User of smokeless tobacco [facility] End: 01-25-2023 History of tobacco use Chews Tobacco [facility] Start: 01-28-2023 Tobacco use and exposure Former smokeless tobacco user [facility] Start: 01-28-2023 Alcohol Comment 4-5/week [facility] Work Phone: Start: 1995 Sex Assigned At Male [facility] Goals Date Patient Goal Desired Activity /State Clinical Notes 01-07-2023 to 07-19-2024 Telephone Encounter - Manas Sharp LPN - 07/19/2024 12:02 PM EDTTelephone Encounter - Manas Sharp LPN - 07/19/2024 12:02 PM EDT Note Date & Type Note Facility 07-19-2024 Telephone encounter Note Form atting of this note is different from the original. Kevin is requesting a refill for Requested Prescriptions Pending Prescriptions Disp Refills hydrOXYzine (VISTARIL) 25 MG capsule 30 capsule 0 Sig: Take 1 (one) capsule (25 mg total) by mouth 3 (three) times a day as needed for itching . Last refill: 02/10/2024 Last appt: 02/10/2024 Upcoming appt (when is it due or is it scheduled): 08/10/2024 Follow up: Refill pending for review without additional follow up based on information above. [facility] 07-19-2024 Miscellaneous Notes Formattin g of this note is different from the original. Kevin is requesting a refill for Requested Prescriptions Pending Prescriptions Disp Refills hydrOXYzine (VISTARIL) 25 MG capsule 30 capsule 0 Sig: Take 1 (one) capsule (25 mg total) by mouth 3 (three) times a day as needed for itching . Last refill: 02/10/2024 Last appt: 02/10/2024 Upcoming appt (when is it due or is it scheduled): 08/10/2024 Follow up: Refill pending for review without additional follow up based on information above. documented in this encounter [facility] 06-30-2024 Evaluation note Diagnosis Onset Date Resolution Lumbar radiculopathy acute June 30, 2024 8:09am [facility] Work Phone: [phone]) 264-566012-18-2024 Evaluation + Plan note* Assessment & Plan Note - Jany Giron CNP - 02/10/2024 7:29 AM ESTAssociated Problem(s): HEMALATHA (generalized anxiety disorder) Chronic, controlled [id number] Miscellaneous Notes* Assessment & Plan Note - Jany Giron CNP - 02/10/2024 7:29 AM ESTAssociated Problem(s): HEMALATHA (generalized anxiety disorder) Chronic, controlled documented in this [id number] NoteOFFICE VISIT PROGRESS NOTE HPI patient here for HEMALATHA-states feeling better states anxiety controlled, rare use of Vistaril Denies sadness, lack motivation, memory or sleep. Denies suicidal ideation Complains of rhinorrhea, cough x Thursday. Denies fever and chills, nausea or vomiting States taking Dayquil and Nyquil with relief. The following portions of the patient's history were reviewed and updated as appropriate: allergies, current medications and problem list. The patient's surgical, family, and social history was reviewed and updated as appropriate. Review of Systems Review of Systems Constitutional: Negative for chills and fever. HENT: Positive for congestion and postnasal drip. Respiratory: Positive for cough. Negative for shortness of breath. Cardiovascular: Negative. Gastrointestinal: Negative. Neurological: Negative. Psychiatric/Behavioral: Negative. Vitals: 02/10/24 0704 BP: 121/80 Pulse: 77 Temp: 98.7 degrees F (37.1 degrees C) TempSrc: Temporal SpO2: 98% Weight: 77.6 kg (171 lb) Height: 5' 10 Body mass index is 24.54 kg/m . Physical Exam Physical Exam Constitutional: Appearance: Normal appearance. He is normal weight. HENT: Right Ear: Tympanic membrane, ear canal and external ear normal. Left Ear: Tympanic membrane, ear canal and external ear normal. Mouth/Throat: Mouth: Mucous membranes are moist. Cardiovascular: Rate and Rhythm: Normal rate and regular rhythm. Pulses: Normal pulses. Heart sounds: Normal heart sounds. Pulmonary: Effort: Pulmonary effort is normal. Breath sounds: Normal breath sounds. Abdominal: General: Abdomen is flat. Bowel sounds are normal. Palpations: Abdomen is soft. Musculoskeletal: Cervical back: Neck supple. Lymphadenopathy: Cervical: No cervical adenopathy. Skin: General: Skin is warm. Neurological: Mental Status: He is alert and oriented to person, place, and time. Psychiatric: Mood and Affect: Mood normal. Behavior: Behavior normal. Thought Content: Thought content normal. Judgment: Judgment normal. OARRS/NARxCHECK Report Received and Assessed: Date controlled substance agreement signed: No data found Date of last drug screen: Assessment/Plan Problem List Items Addressed This Visit HEMALATHA (generalized anxiety disorder) - Primary Chronic, controlled Other Visit Diagnoses Upper respiratory tract infection, unspecified type increase fluids, Mucinex Relevant Medications hydrOXYzine (VISTARIL) 25 MG capsule Return in about 6 months (around 08/10/2024) for Recheck HEMALATHA. If any referrals were placed at today's visit the patient was instructed to call the office if they havn't heard anything about the referral within 2 weeks of today's visit. For any new medications prescribed today, patient was educated about indications for the medication, how to take the medication and potential side effects of the medications. Jany Giron CNP AUTHENTICATED BY JANY GIRON, ON 02/10/2024 08:22:35[facility] [id number] History of Present illness Narrative* Jany Giron CNP - 02/10/2024 7:16 AM EST OFFICE VISIT PROGRESS NOTE HPI patient here for HEMALATHA-states feeling better states anxiety controlled, rare use of Vistaril Denies sadness, lack motivation, memory or sleep. Denies suicidal ideation Complains of rhinorrhea, cough x Thursday. Denies fever and chills, nausea or vomiting States taking Dayquil and Nyquil with relief. The following portions of the patient's history were reviewed and updated as appropriate: allergies, current medications and problem list. The patient's surgical, family, and social history was reviewed and updated as appropriate. Review of Systems Review of Systems Constitutional: Negative for chills and fever. HENT: Positive for congestion and postnasal drip. Respiratory: Positive for cough. Negative for shortness of breath. Cardiovascular: Negative. Gastrointestinal: Negative. Neurological: Negative. Psychiatric/Behavioral: Negative. Vitals: 02/10/24 0704 BP: 121/80 Pulse: 77 Temp: 98.7 F (37.1 C) TempSrc: Temporal SpO2: 98% Weight: 77.6 kg (171 lb) Height: 5' 10 Body mass index is 24.54 kg/m . Physical Exam Physical Exam Constitutional: Appearance: Normal appearance. He is normal weight. HENT: Right Ear: Tympanic membrane, ear canal and external ear normal. Left Ear: Tympanic membrane, ear canal and external ear normal. Mouth/Throat: Mouth: Mucous membranes are moist. Cardiovascular: Rate and Rhythm: Normal rate and regular rhythm. Pulses: Normal pulses. Heart sounds: Normal heart sounds. Pulmonary: Effort: Pulmonary effort is normal. Breath sounds: Normal breath sounds. Abdominal: General: Abdomen is flat. Bowel sounds are normal. Palpations: Abdomen is soft. Musculoskeletal: Cervical back: Neck supple. Lymphadenopathy: Cervical: No cervical adenopathy. Skin: General: Skin is warm. Neurological: Mental Status: He is alert and oriented to person, place, and time. Psychiatric: Mood and Affect: Mood normal. Behavior: Behavior normal. Thought Content: Thought content normal. Judgment: Judgment normal. OARRS/NARxCHECK Report Received and Assessed: Date controlled substance agreement signed: No data found Date of last drug screen: Assessment/Plan Problem List Items Addressed This Visit HEMALATHA (generalized anxiety disorder) - Primary Chronic, controlled Other Visit Diagnoses Upper respiratory tract infection, unspecified type increase fluids, Mucinex Relevant Medications hydrOXYzine (VISTARIL) 25 MG capsule Return in about 6 months (around 08/10/2024) for Recheck HEMALATHA. If any referrals were placed at today's visit the patient was instructed to call the office if theyhavn't heard anything about the referral within 2 weeks of today's visit. For any new medications prescribed today, patient was educated about indications for the medication, how to take the medication and potential side effects of the medications. Jany Giron CNP documented in this [id number] Instructions* Patient Instructions* Nancy Broussard LPN - 02/10/2024 7:05 AM EST Feedback Our goal is to provide you with exceptional patient care, and we strive to do this for every patient, every visit. Since we care about you and your experience, you may receive a patient satisfaction survey in the mail, via email or text message from [employer]. We truly welcome your feedback, positive and negative, and ask that you complete the survey to let us know how we are doing. Please skipover any question(s) that may not apply to your visit. Appointment Policy We care about your health and we want to assist you if there is something preventing you from making it to your appointment. We know unexpected events occur that may prevent you from making your appointment and we understand. If you are not able to make it to your appointment, we would greatly appreciate if you could let us know at least 8 business hours prior to your appointment time. Any patients arriving more than 15 minutes after their scheduled appointment will be considered a late arrivaland may be asked to reschedule their appointment. Any patient who fails to arrive for a scheduled appointment without canceling will be considered a no show. Any continued late cancellations or missed appointments may result in a need to ask you to find another provider. Referrals If you have been referred to another physician, we will send them your referral and any necessary clinical information. They will call you to schedule your appointment. If you have not heard from theoffice we are referring you to within 7-10 business days, please give our office a call at or send the provider a [employer] message and we will be happy to assist. Advanced Imaging (MRI, CT, etc.) If your provider ordered advanced imaging during your visit today, you will be contacted by [facility] Central Scheduling. If you would prefer to call Central Scheduling directly, please call . Test & Lab Results Even though you may receive your test results in your MyChart, please allow up to 5 business days to be contacted by our office regarding your results. Be assured, if any test results are critical, our office will contact you as soon as possible to review the results with you. If your labs are normal or abnormal and the provider is not concerned about them, you will receive a [employer]hart message with these results. If your labs are abnormal or critical, you will receive a phone call with your results. If you have not heard anything about your lab results after 5 business days, please give our office a call at or send the provider a MyChart message and we will be happy to look into this. Medication Refills Our office does not accept refill requests from pharmacies. Please check with you provider at your appointment, and request any refills needed. If any refill is needed outside of a scheduled appointment, please call your pharmacy to verify if you have any refills remaining. If a new prescription isneeded, please give our office a call at or send the provider a [employer] message and allow up to 2 business days for us to complete this. If your insurance requires your medication(s) to be prior authorized, we will work with your insurance company to get these medication(s) prior authorized for you. Please allow up to 7-10 business days for this to be completed. [employer] is a wonderful way to communicate with your provider and often allows for quicker response times compared to calling our office. Please consider sending your provider a [employer] message with your non-urgent questions, medication refill requests, or even to schedule an appointment. Please do not use [employer] to send any messages requiring urgent or emergent attention. By selecting to send a message, you acknowledge you are seeking medical advice for non-urgent issues and that you are awarethat you may not get a response for 2 business days. Responses are not monitored evenings and weekends. For issues requiring urgent or emergent attention, please call our office at to speak to the provider on-call or call 911. Important Numbers Billing Questions or MyChart Support or Medical Financial Assistance Central Scheduling or Thank you for choosing [facility] for your healthcare needs documented in this [id number] Evaluation + Plan note* Assessment & Plan Note - Jany Giron CNP - 10/13/2023 7:29 AM EDT Associated Problem(s): HEMALATHA (generalized anxiety disorder) Chronic, controlled [id number] Miscellaneous Notes* Assessment & Plan Note - Jany Giron CNP - 10/13/2023 7:29 AM EDTAssociated Problem(s): HEMALATHA (generalized anxiety disorder) Chronic, controlled documented in this [id number] NoteWELL ADULT MALE ANNUAL WELLNESS VISIT Subjective: Kevin Gallegos is a 27 y.o. male and is here for a preventative care visit. 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 The following portions of the patient's history were reviewed and updated as appropriate: allergies, current medications, past family history, past medical history, past social history, past surgical history and problem list. Past Medical History: Diagnosis Date Injury of back Past Surgical History: Procedure Laterality Date RECONSTRUCTION SHOULDER ACROMIOCLAVICULAR JOINT Left TONSILLECTOMY Social History Socioeconomic History Marital status: Single Tobacco Use Smoking status: Never Smokeless tobacco: Former Types: Chew Quit date: 01/25/2023 Vaping Use Vaping status: Former Substance and Sexual Activity Alcohol use: Yes Comment: 4-5/week Drug use: Never Sexual activity: Not Currently Partners: Female Social Determinants of Health Financial Resource Strain: Low Risk (12/19/2022) Overall Financial Resource Strain (CARDIA) Difficulty of Paying Living Expenses: Not hard at all Food Insecurity: No Food Insecurity (10/13/2023) Hunger Vital Sign Worried About Running Out of Food in the Last Year: Never true Ran Out of Food in the Last Year: Never true Transportation Needs: No Transportation Needs (10/13/2023) PRAPARE - Transportation Lack of Transportation (Medical): No Lack of Transportation (Non-Medical): No Physical Activity: Sufficiently Active (12/19/2022) Exercise Vital Sign Days of Exercise per Week: 6 days Minutes of Exercise per Session: 60 min Stress: No Stress Concern Present (12/19/2022) [employer] [employer] - Occupational Stress Questionnaire Feeling of Stress : Not at all Social Connections: Socially Isolated (12/19/2022) Social Connection and Isolation Panel [NHANES] Frequency of Communication with Friends and Family: Never Frequency of Social Gatherings with Friends and Family: Twice a week Attends Spiritism Services: More than 4 times per year Active Member of Clubs or Organizations: No Attends Club or Organization Meetings: Never Marital Status: Never Housing Stability: Low Risk (10/13/2023) Housing Stability Vital Sign Unable to Pay for Housing in the Last Year: No Number of Times Moved in the Last Year: 0 Homeless in the Last Year: No Family History Problem Relation Age of Onset Other (blood disease (TTP)) Mother 34 Allergies Allergen Reactions Penicillin Unknown Review of Systems Constitutional: Negative. HENT: Negative. Eyes: Negative. Respiratory: Negative. Cardiovascular: Negative. Gastrointestinal: Negative. Endocrine: Negative. Genitourinary: Negative. Musculoskeletal: Negative. Skin: Negative. Neurological: Negative. Psychiatric/Behavioral: Positive for decreased concentration. Objective: BP 121/78 Pulse (!) 55 Temp 98.6 degrees F (37 degrees C) (Temporal) Ht 5' 10 Wt 73.8 kg (162 lb 9.6 oz) SpO2 98% BMI 23.33 kg/m Physical Exam Constitutional: Appearance: Normal appearance. He is normal weight. HENT: Right Ear: Tympanic membrane, ear canal and external ear normal. Left Ear: Tympanic membrane, ear canal and external ear normal. Nose: Nose normal. Mouth/Throat: Mouth: Mucous membranes are moist. Eyes: Extraocular Movements: Extraocular movements intact. Pupils: Pupils are equal, round, and reactive to light. Cardiovascular: Rate and Rhythm: Normal rate and regular rhythm. Pulses: Normal pulses. Heart sounds: Normal heart sounds. Pulmonary: Effort: Pulmonary effort is normal. Breath sounds: Normal breath sounds. Abdominal: General: Abdomen is flat. Bowel sounds are normal. Palpations: Abdomen is soft. Musculoskeletal: General: Normal range of motion. Cervical back: Normal range of motion and neck supple. Right lower leg: No edema. Left lower leg: No edema. Skin: General: Skin is warm. Capillary Refill: Capillary refill takes less than 2 seconds. Neurological: Mental Status: He is alert and oriented to person, place, and time. Psychiatric: Mood and Affect: Mood normal. Behavior: Behavior normal. Thought Content: Thought content normal. Judgment: Judgment normal. Assessment: Healthy male exam. Plan: Problem List Items Addressed This Visit HEMALATHA (generalized anxiety disorder) Chronic, controlled Relevant Medications escitalopram oxalate (LEXAPRO) 20 MG tablet Other Relevant Orders CBC and Differential Comprehensive Metabolic Panel TSH with Reflex Free T4 Lipid Panel Preventative Counseling Info: --Nutrition: Stressed importance of moderation in sodium/caffeine intake, saturated fat and cholesterol, caloric balance, sufficient int (more content not included)...[facility]08-20-2024 History of Present illness Narrative* Jany Giron, [employer]CR[employer]E 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 - 10/13/2023 7:05 AM EDT WELL ADULT MALE ANNUAL WELLNESS VISIT Subjective: Kevin Gallegos is a 27 y.o. male and is here for a preventative care visit. 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 The following portions of the patient's history were reviewed and updated as appropriate: allergies, current medications, past family history, past medical history, past social history, past surgicalhistory and problem list. Past Medical History: Diagnosis Date Injury of back Past Surgical History: Procedure Laterality Date RECONSTRUCTION SHOULDER ACROMIOCLAVICULAR JOINT Left TONSILLECTOMY Social History Socioeconomic History Marital status: Single Tobacco Use Smoking status: Never Smokeless tobacco: Former Types: Chew Quit date: 01/25/2023 Vaping Use Vaping status: Former Substance and Sexual Activity Alcohol use: Yes Comment: 4-5/week Drug use: Never Sexual activity: Not Currently Partners: Female Social Determinants of Health Financial Resource Strain: Low Risk (12/19/2022) Overall Financial Resource Strain (CARDIA) Difficulty of Paying Living Expenses: Not hard at all Food Insecurity: No Food Insecurity (10/13/2023) Hunger Vital Sign Worried About Running Out of Food in the Last Year: Never true Ran Out of Food in the Last Year: Never true Transportation Needs: No Transportation Needs (10/13/2023) PRAPARE - Transportation Lack of Transportation (Medical): No Lack of Transportation (Non-Medical): No Physical Activity: Sufficiently Active (12/19/2022) Exercise Vital Sign Days of Exercise per Week: 6 days Minutes of Exercise per Session: 60 min Stress: No Stress Concern Present (12/19/2022) [employer] [employer] - Occupational Stress Questionnaire Feeling of Stress : Not at all Social Connections: Socially Isolated (12/19/2022) Social Connection and Isolation Panel [NHANES] Frequency of Communication with Friends and Family: Never Frequency of Social Gatherings with Friends and Family: Twice a week Attends Spiritism Services: More than 4 times per year Active Member of Clubs or Organizations: No Attends Club or Organization Meetings: Never Marital Status: Never Housing Stability: Low Risk (10/13/2023) Housing Stability Vital Sign Unable to Pay for Housing in the Last Year: No Number of Times Moved in the Last Year: 0 Homeless in the Last Year: No Family History Problem Relation Age of Onset Other (blood disease (TTP)) Mother 34 Allergies Allergen Reactions Penicillin Unknown Review of Systems Constitutional: Negative. HENT: Negative. Eyes: Negative. Respiratory: Negative. Cardiovascular: Negative. Gastrointestinal: Negative. Endocrine: Negative. Genitourinary: Negative. Musculoskeletal: Negative. Skin: Negative. Neurological: Negative. Psychiatric/Behavioral: Positive for decreased concentration. Objective: BP 121/78 Pulse (!) 55 Temp 98.6 F (37 C) (Temporal) Ht 5' 10 Wt 73.8 kg (162 lb 9.6 oz) SpO2 98% BMI 23.33 kg/m Physical Exam Constitutional: Appearance: Normal appearance. He is normal weight. HENT: Right Ear: Tympanic membrane, ear canal and external ear normal. Left Ear: Tympanic membrane, ear canal and external ear normal. Nose: Nose normal. Mouth/Throat: Mouth: Mucous membranes are moist. Eyes: Extraocular Movements: Extraocular movements intact. Pupils: Pupils are equal, round, and reactive to light. Cardiovascular: Rate and Rhythm: Normal rate and regular rhythm. Pulses: Normal pulses. Heart sounds: Normal heart sounds. Pulmonary: Effort: Pulmonary effort is normal. Breath sounds: Normal breath sounds. Abdominal: General: Abdomen is flat. Bowel sounds are normal. Palpations: Abdomen is soft. Musculoskeletal: General: Normal range of motion. Cervical back: Normal range of motion and neck supple. Right lower leg: No edema. Left lower leg: No edema. Skin: General: Skin is warm. Capillary Refill: Capillary refill takes less than 2 seconds. Neurological: Mental Status: He is alert and oriented to person, place, and time. Psychiatric: Mood and Affect: Mood normal. Behavior: Behavior normal. Thought Content: Thought content normal. Judgment: Judgment normal. Assessment: Healthy male exam. Plan: Problem List Items Addressed This Visit HEMALATHA (generalized anxiety disorder) Chronic, controlled Relevant Medications escitalopram oxalate (LEXAPRO) 20 MG tablet Other Relevant Orders CBC and Differential Comprehensive Metabolic Panel TSH with Reflex Free T4 Lipid Panel Preventative Counseling Info: --Nutrition: Stressed importance of moderation in sodium/caffeine intake, saturated fat and cholesterol, caloric balance, sufficient intake of fresh fruits, vegetables --Discussed the issue of use of baby aspirin. --Exercise: Stressed the importance of regular exercise. --Substance Abuse: Discussed cessation/primary prevention of tobacco, alcohol, or other drug use --Sexuality: Discussed sexually transmitted diseases, partner selection, use of condoms, avoidance of unintended and contraceptive alternatives. --Dental health: Discussed importance of regular dental visits. --Immunizations reviewed. --Discussed benefits of screening colonoscopy. Jany Giron CNP 12/19/2022 3:33 PM 03/11/2023 12:00 PM 04/30/2023 7:00 AM 10/13/2023 7:05 AM Depression Screening Little interest or pleasure in doing things 0 2 1 0 Feeling down, depressed, or hopeless 0 2 1 0 PHQ-2 Total Score 0 4 2 0 Trouble falling or staying asleep, or sleeping too much 0 0 Feeling tired or having little energy 1 1 Poor appetite or overeating 1 1 Feeling bad about yourself - or that you are a failure or have let yourself or your family down 1 0 Trouble concentrating on things, such as reading the newspaper or watching television 2 2 Moving or speaking so slowly that other people could have noticed. Or the opposite - being so fidgety or restless that you have been moving around a lot more than usual 0 1 Thoughts that you would be better off , or of hurting yourself in some way 0 0 PHQ-9 Total Score 9 7 If you checked off any problems, how difficult have these problems made it for you to do your work,take care of things at home, or get along with other people? Somewhat difficult Somewhat difficult documented in this [id number] Instructions* Patient Instructions* Nancy Broussard LPN - 10/13/2023 6:43 AM EDT Feedback Our goal is to provide you with exceptional patient care, and we strive to do this for every patient, every visit. Since we care about you and your experience, you may receive a patient satisfaction survey in the mail, via email or text message from [employer]. We truly welcome your feedback, positive and negative, and ask that you complete the survey to let us know how we are doing. Please skipover any question(s) that may not apply to your visit. Appointment Policy We care about your health and we want to assist you if there is something preventing you from making it to your appointment. We know unexpected events occur that may prevent you from making your appointment and we understand. If you are not able to make it to your appointment, we would greatly appreciate if you could let us know at least 8 business hours prior to your appointment time. Any patients arriving more than 15 minutes after their scheduled appointment will be considered a late arrivaland may be asked to reschedule their appointment. Any patient who fails to arrive for a scheduled appointment without canceling will be considered a no show. Any continued late cancellations or missed appointments may result in a need to ask you to find another provider. Referrals If you have been referred to another physician, we will send them your referral and any necessary clinical information. They will call you to schedule your appointment. If you have not heard from theoffice we are referring you to within 7-10 business days, please give our office a call at or send the provider a [employer] message and we will be happy to assist. Advanced Imaging (MRI, CT, etc.) If your provider ordered advanced imaging during your visit today, you will be contacted by [facility] Central Scheduling. If you would prefer to call Central Scheduling directly, please call . Test & Lab Results Even though you may receive your test results in your MyChart, please allow up to 5 business days to be contacted by our office regarding your results. Be assured, if any test results are critical, our office will contact you as soon as possible to review the results with you. If your labs are normal or abnormal and the provider is not concerned about them, you will receive a [employer] message with these results. If your labs are abnormal or critical, you will receive a phone call with your results. If you have not heard anything about your lab results after 5 business days, please give our office a call at or send the provider a [employer] message and we will be happy to look into this. Medication Refills Our office does not accept refill requests from pharmacies. Please check with you provider at your appointment, and request any refills needed. If any refill is needed outside of a scheduled appointment, please call your pharmacy to verify if you have any refills remaining. If a new prescription isneeded, please give our office a call at or send the provider a [employer] message and allow up to 2 business days for us to complete this. If your insurance requires your medication(s) to be prior authorized, we will work with your insurance company to get these medication(s) prior authorized for you. Please allow up to 7-10 business days for this to be completed. [employer] is a wonderful way to communicate with your provider and often allows for quicker response times compared to calling our office. Please consider sending your provider a [employer] message with your non-urgent questions, medication refill requests, or even to schedule an appointment. Please do not use [employer] to send any messages requiring urgent or emergent attention. By selecting to send a message, you acknowledge you are seeking medical advice for non-urgent issues and that you are awarethat you may not get a response for 2 business days. Responses are not monitored evenings and weekends. For issues requiring urgent or emergent attention, please call our office at to speak to the provider on-call or call [phone]. Important Numbers Billing Questions or MyChart Support or Medical Financial Assistance Central Scheduling or Thank you for choosing [facility] for your healthcare needs documented in this [id number] Evaluation + Plan note* Assessment & Plan Note - Jany Giron CNP - 09/17/2023 4:38 PM EDT Associated Problem(s): HEMALATHA (generalized anxiety disorder) Chronic, uncontrolled Increase lexapro 20mg [id number] Miscellaneous Notes* Assessment & Plan Note - Jany Giron CNP - 09/17/2023 4:38 PM EDTAssociated Problem(s): HEMALATHA (generalized anxiety disorder) Chronic, uncontrolled Increase lexapro 20mg documented in this [id number] NoteOFFICE VISIT PROGRESS NOTE HPI sore spot back of throat swallowing increases x 3 days. States rhinorrhea. Denies fever and chills nausea or vomiting. Taking tylenol with relief. HEMALATHA-states still feels anxious, denies suicidal The following portions of the patient's history were reviewed and updated as appropriate: allergies, current medications and problem list. The patient's surgical, family, and social history was reviewed and updated as appropriate. Review of Systems Review of Systems Constitutional: Negative. Respiratory: Negative. Cardiovascular: Negative. Gastrointestinal: Negative. Psychiatric/Behavioral: Positive for sleep disturbance. Negative for dysphoric mood and suicidal ideas. The patient is nervous/anxious. Vitals: 09/17/23 1601 BP: 120/74 Pulse: 64 Temp: 99 degrees F (37.2 degrees C) TempSrc: Temporal SpO2: 97% Weight: 73.5 kg (162 lb) Height: 5' 10 Body mass index is 23.24 kg/m . Physical Exam Physical Exam Constitutional: Appearance: He is well-developed and normal weight. HENT: Right Ear: Tympanic membrane and ear canal normal. Left Ear: Tympanic membrane and ear canal normal. Mouth/Throat: Mouth: Mucous membranes are moist. Cardiovascular: Rate and Rhythm: Normal rate and regular rhythm. Heart sounds: Normal heart sounds. Pulmonary: Effort: Pulmonary effort is normal. Breath sounds: Normal breath sounds. Abdominal: General: Bowel sounds are normal. Palpations: Abdomen is soft. Musculoskeletal: Cervical back: Neck supple. Lymphadenopathy: Cervical: No cervical adenopathy. Skin: General: Skin is warm. Neurological: Mental Status: He is alert and oriented to person, place, and time. Psychiatric: Mood and Affect: Mood normal. Behavior: Behavior normal. OARRS/NARxCHECK Report Received and Assessed: Date controlled substance agreement signed: No data found Date of last drug screen: Assessment/Plan Problem List Items Addressed This Visit HEMALATHA (generalized anxiety disorder) - Primary Chronic, uncontrolled Increase lexapro 20mg Relevant Medications escitalopram oxalate (LEXAPRO) 20 MG tablet Other Visit Diagnoses Viral upper respiratory tract infection increase fluids, Relevant Medications hydrOXYzine (VISTARIL) 25 MG capsule Return in about 4 weeks (around 10/15/2023) for Recheck HEMALATHA. If any referrals were placed at today's visit the patient was instructed to call the office if they havn't heard anything about the referral within 2 weeks of today's visit. For any new medications prescribed today, patient was educated about indications for the medication, how to take the medication and potential side effects of the medications. Jany Giron CNP AUTHENTICATED BY JANY GIRON, ON 09/17/2023 16:43:32[facility]07-25-2024 History of Present illness Narrative* Jany Giron CNP - 09/17/2023 4:28 PM EDT OFFICE VISIT PROGRESS NOTE HPI sore spot back of throat swallowing increases x 3 days. States rhinorrhea. Denies fever and chills nausea or vomiting. Taking tylenol with relief. HEMALATHA-states still feels anxious, denies suicidal The following portions of the patient's history were reviewed and updated as appropriate: allergies, current medications and problem list. The patient's surgical, family, and social history was reviewed and updated as appropriate. Review of Systems Review of Systems Constitutional: Negative. Respiratory: Negative. Cardiovascular: Negative. Gastrointestinal: Negative. Psychiatric/Behavioral: Positive for sleep disturbance. Negative for dysphoric mood and suicidal ideas. The patient is nervous/anxious. Vitals: 09/17/23 1601 BP: 120/74 Pulse: 64 Temp: 99 F (37.2 C) TempSrc: Temporal SpO2: 97% Weight: 73.5 kg (162 lb) Height: 5' 10 Body mass index is 23.24 kg/m . Physical Exam Physical Exam Constitutional: Appearance: He is well-developed and normal weight. HENT: Right Ear: Tympanic membrane and ear canal normal. Left Ear: Tympanic membrane and ear canal normal. Mouth/Throat: Mouth: Mucous membranes are moist. Cardiovascular: Rate and Rhythm: Normal rate and regular rhythm. Heart sounds: Normal heart sounds. Pulmonary: Effort: Pulmonary effort is normal. Breath sounds: Normal breath sounds. Abdominal: General: Bowel sounds are normal. Palpations: Abdomen is soft. Musculoskeletal: Cervical back: Neck supple. Lymphadenopathy: Cervical: No cervical adenopathy. Skin: General: Skin is warm. Neurological: Mental Status: He is alert and oriented to person, place, and time. Psychiatric: Mood and Affect: Mood normal. Behavior: Behavior normal. OARRS/NARxCHECK Report Received and Assessed: Date controlled substance agreement signed: No data found Date of last drug screen: Assessment/Plan Problem List Items Addressed This Visit HEMALATHA (generalized anxiety disorder) - Primary Chronic, uncontrolled Increase lexapro 20mg Relevant Medications escitalopram oxalate (LEXAPRO) 20 MG tablet Other Visit Diagnoses Viral upper respiratory tract infection increase fluids, Relevant Medications hydrOXYzine (VISTARIL) 25 MG capsule Return in about 4 weeks (around 10/15/2023) for Recheck HEMALATHA. If any referrals were placed at today's visit the patient was instructed to call the office if theyhavn't heard anything about the referral within 2 weeks of today's visit. For any new medications prescribed today, patient was educated about indications for the medication, how to take the medication and potential side effects of the medications. Jany Giron CNP documented in this [id number] Evaluation + Plan note* Assessment & Plan Note - Jany Giron CNP - 09/08/2023 7:39 AM EDT Associated Problem(s): HEMALATHA (generalized anxiety disorder) Chronic, improving Increase lexapro 15mg daily [id number] Miscellaneous Notes* Assessment & Plan Note - Jany Giron CNP - 09/08/2023 7:39 AM EDTAssociated Problem(s): HEMALATHA (generalized anxiety disorder) Chronic, improving Increase lexapro 15mg daily documented in this [id number] NoteOFFICE VISIT PROGRESS NOTE HPI patient here for HEMALATHA-states feeling better-decreased anxiety-denies sadness. States motivation, memory, concentration and sleep good. Denies suicidal ideation. The following portions of the patient's history were reviewed and updated as appropriate: allergies, current medications and problem list. The patient's surgical, family, and social history was reviewed and updated as appropriate. Review of Systems Review of Systems Constitutional: Negative. Respiratory: Negative. Cardiovascular: Negative. Gastrointestinal: Negative. Neurological: Negative. Psychiatric/Behavioral: Negative. Vitals: 09/08/23 0703 BP: 126/85 Pulse: 63 Temp: 98.5 degrees F (36.9 degrees C) TempSrc: Temporal SpO2: 98% Weight: 73 kg (160 lb 14.4 oz) Height: 5' 10 Body mass index is 23.09 kg/m . Physical Exam Physical Exam Constitutional: General: He is not in acute distress. Appearance: Normal appearance. He is normal weight. He is not ill-appearing or toxic-appearing. Cardiovascular: Rate and Rhythm: Normal rate and regular rhythm. Pulses: Normal pulses. Heart sounds: Normal heart sounds. Pulmonary: Effort: Pulmonary effort is normal. Breath sounds: Normal breath sounds. Abdominal: General: Abdomen is flat. Bowel sounds are normal. Palpations: Abdomen is soft. Musculoskeletal: Cervical back: Neck supple. Skin: General: Skin is warm. Neurological: Mental Status: He is alert and oriented to person, place, and time. Psychiatric: Mood and Affect: Mood normal. Behavior: Behavior normal. Thought Content: Thought content normal. Judgment: Judgment normal. OARRS/NARxCHECK Report Received and Assessed: Date controlled substance agreement signed: No data found Date of last drug screen: Assessment/Plan Problem List Items Addressed This Visit HEMALATHA (generalized anxiety disorder) Chronic, improving Increase lexapro 15mg daily Relevant Medications escitalopram oxalate (LEXAPRO) 10 MG tablet Return in about 2 months (around 11/09/2023) for Recheck HEMALATHA. If any referrals were placed at today's visit the patient was instructed to call the office if they havn't heard anything about the referral within 2 weeks of today's visit. For any new medications prescribed today, patient was educated about indications for the medication, how to take the medication and potential side effects of the medications. Jany Giron CNP AUTHENTICATED BY JANY GIRON, ON 09/08/2023 07:41:04[facility]07-16-2024 History of Present illness Narrative* Jany Giron CNP - 09/08/2023 7:27 AM EDT OFFICE VISIT PROGRESS NOTE HPI patient here for HEMALATHA-states feeling better-decreased anxiety-denies sadness. States motivation,memory, concentration and sleep good. Denies suicidal ideation. The following portions of the patient's history were reviewed and updated as appropriate: allergies, current medications and problem list. The patient's surgical, family, and social history was reviewed and updated as appropriate. Review of Systems Review of Systems Constitutional: Negative. Respiratory: Negative. Cardiovascular: Negative. Gastrointestinal: Negative. Neurological: Negative. Psychiatric/Behavioral: Negative. Vitals: 09/08/23 0703 BP: 126/85 Pulse: 63 Temp: 98.5 F (36.9 C) TempSrc: Temporal SpO2: 98% Weight: 73 kg (160 lb 14.4 oz) Height: 5' 10 Body mass index is 23.09 kg/m . Physical Exam Physical Exam Constitutional: General: He is not in acute distress. Appearance: Normal appearance. He is normal weight. He is not ill-appearing or toxic-appearing. Cardiovascular: Rate and Rhythm: Normal rate and regular rhythm. Pulses: Normal pulses. Heart sounds: Normal heart sounds. Pulmonary: Effort: Pulmonary effort is normal. Breath sounds: Normal breath sounds. Abdominal: General: Abdomen is flat. Bowel sounds are normal. Palpations: Abdomen is soft. Musculoskeletal: Cervical back: Neck supple. Skin: General: Skin is warm. Neurological: Mental Status: He is alert and oriented to person, place, and time. Psychiatric: Mood and Affect: Mood normal. Behavior: Behavior normal. Thought Content: Thought content normal. Judgment: Judgment normal. OARRS/NARxCHECK Report Received and Assessed: Date controlled substance agreement signed: No data found Date of last drug screen: Assessment/Plan Problem List Items Addressed This Visit HEMALATHA (generalized anxiety disorder) Chronic, improving Increase lexapro 15mg daily Relevant Medications escitalopram oxalate (LEXAPRO) 10 MG tablet Return in about 2 months (around 11/09/2023) for Recheck HEMALATHA. If any referrals were placed at today's visit the patient was instructed to call the office if theyhavn't heard anything about the referral within 2 weeks of today's visit. For any new medications prescribed today, patient was educated about indications for the medication, how to take the medication and potential side effects of the medications. Jany Giron CNP documented in this [id number] Evaluation + Plan note* Assessment & Plan Note - Jany Giron CNP - 08/11/2023 3:19 PM EDT Associated Problem(s): HEMALATHA (generalized anxiety disorder) Chronic, uncontrolled Add lexapro 10mg daily [id number] Miscellaneous Notes* Assessment & Plan Note - Jany Giron CNP - 08/11/2023 3:19 PM EDTAssociated Problem(s): HEMALATHA (generalized anxiety disorder) Chronic, uncontrolled Add lexapro 10mg daily documented in this [id number] NoteOFFICE VISIT PROGRESS NOTE HPI patient here for complains of anxiety x July 20. Denies sadness, anger. States trouble sleeping-falling and staying asleep. States motivated, memory, concentration. Lost job and now applying for new jobs. Thinks this is what has triggered. States always has some anxiety but not this bad. No relief with vistaril 2 tabs. Denies suicidal ideation. The following portions of the patient's history were reviewed and updated as appropriate: allergies, current medications and problem list. The patient's surgical, family, and social history was reviewed and updated as appropriate. Review of Systems Review of Systems Constitutional: Negative. Respiratory: Negative. Cardiovascular: Negative. Gastrointestinal: Negative. Genitourinary: Negative. Neurological: Negative. Psychiatric/Behavioral: Positive for sleep disturbance. Negative for decreased concentration, dysphoric mood and suicidal ideas. The patient is nervous/anxious. Vitals: 08/11/23 1429 08/11/23 1519 BP: (!) 144/76 127/84 Pulse: 96 Temp: 99.2 degrees F (37.3 degrees C) TempSrc: Temporal SpO2: 98% Weight: 73.9 kg (163 lb) Height: 5' 10 Body mass index is 23.39 kg/m . Physical Exam Physical Exam Constitutional: General: He is not in acute distress. Appearance: Normal appearance. He is normal weight. He is not ill-appearing or toxic-appearing. Cardiovascular: Rate and Rhythm: Normal rate and regular rhythm. Pulses: Normal pulses. Heart sounds: Normal heart sounds. Pulmonary: Effort: Pulmonary effort is normal. Breath sounds: Normal breath sounds. Abdominal: General: Abdomen is flat. Bowel sounds are normal. Palpations: Abdomen is soft. Musculoskeletal: Cervical back: Neck supple. Skin: General: Skin is warm. Neurological: Mental Status: He is alert and oriented to person, place, and time. Psychiatric: Mood and Affect: Mood normal. Behavior: Behavior normal. Thought Content: Thought content normal. Judgment: Judgment normal. OARRS/NARxCHECK Report Received and Assessed: Date controlled substance agreement signed: No data found Date of last drug screen: Assessment/Plan Problem List Items Addressed This Visit HEMALATHA (generalized anxiety disorder) - Primary Chronic, uncontrolled Add lexapro 10mg daily Relevant Medications escitalopram oxalate (LEXAPRO) 10 MG tablet Return in about 4 weeks (around 09/08/2023) for Recheck HEMALATHA. If any referrals were placed at today's visit the patient was instructed to call the office if they havn't heard anything about the referral within 2 weeks of today's visit. For any new medications prescribed today, patient was educated about indications for the medication, how to take the medication and potential side effects of the medications. Jany Giron CNP AUTHENTICATED BY JANY GIRON, ON 08/11/2023 15:21:05[facility]06-18-2024 History of Present illness Narrative* Jany Giron CNP - 08/11/2023 2:54 PM EDT OFFICE VISIT PROGRESS NOTE HPI patient here for complains of anxiety x July 20. Denies sadness, anger. States trouble sleeping-falling and staying asleep. States motivated, memory, concentration. Lost job and now applying fornew jobs. Thinks this is what has triggered. States always has some anxiety but not this bad. No relief with vistaril 2 tabs. Denies suicidal ideation. The following portions of the patient's history were reviewed and updated as appropriate: allergies, current medications and problem list. The patient's surgical, family, and social history was reviewed and updated as appropriate. Review of Systems Review of Systems Constitutional: Negative. Respiratory: Negative. Cardiovascular: Negative. Gastrointestinal: Negative. Genitourinary: Negative. Neurological: Negative. Psychiatric/Behavioral: Positive for sleep disturbance. Negative for decreased concentration, dysphoric mood and suicidal ideas. The patient is nervous/anxious. Vitals: 08/11/23 1429 08/11/23 1519 BP: (!) 144/76 127/84 Pulse: 96 Temp: 99.2 F (37.3 C) TempSrc: Temporal SpO2: 98% Weight: 73.9 kg (163 lb) Height: 5' 10 Body mass index is 23.39 kg/m . Physical Exam Physical Exam Constitutional: General: He is not in acute distress. Appearance: Normal appearance. He is normal weight. He is not ill-appearing or toxic-appearing. Cardiovascular: Rate and Rhythm: Normal rate and regular rhythm. Pulses: Normal pulses. Heart sounds: Normal heart sounds. Pulmonary: Effort: Pulmonary effort is normal. Breath sounds: Normal breath sounds. Abdominal: General: Abdomen is flat. Bowel sounds are normal. Palpations: Abdomen is soft. Musculoskeletal: Cervical back: Neck supple. Skin: General: Skin is warm. Neurological: Mental Status: He is alert and oriented to person, place, and time. Psychiatric: Mood and Affect: Mood normal. Behavior: Behavior normal. Thought Content: Thought content normal. Judgment: Judgment normal. OARRS/NARxCHECK Report Received and Assessed: Date controlled substance agreement signed: No data found Date of last drug screen: Assessment/Plan Problem List Items Addressed This Visit HEMALATHA (generalized anxiety disorder) - Primary Chronic, uncontrolled Add lexapro 10mg daily Relevant Medications escitalopram oxalate (LEXAPRO) 10 MG tablet Return in about 4 weeks (around 09/08/2023) for Recheck HEMALATHA. If any referrals were placed at today's visit the patient was instructed to call the office if theyhavn't heard anything about the referral within 2 weeks of today's visit. For any new medications prescribed today, patient was educated about indications for the medication, how to take the medication and potential side effects of the medications. Jany Giron CNP documented in this [id number] Evaluation + Plan note* Assessment & Plan Note - Lu Castro CNP - 07/30/2023 1:18 PM EDT Associated Problem(s): HEMALATHA (generalized anxiety disorder) Acute on chronic. Exacerbated by recent life stressors Discussed increasing vistaril to 50 mg as needed Encouraged to stop use of energy drinks Stop all nicotine use, including vaping Stop alcohol use Follow-up as need with PCP [id number] Miscellaneous Notes* Assessment & Plan Note - Lu Castro CNP - 07/30/2023 1:18 PM EDTAssociated Problem(s): HEMALATHA (generalized anxiety disorder) Acute on chronic. Exacerbated by recent life stressors Discussed increasing vistaril to 50 mg as needed Encouraged to stop use of energy drinks Stop all nicotine use, including vaping Stop alcohol use Follow-up as need with PCP documented in this [id number] NoteSubjective Patient ID: Kevin Gallegos is a 27 y.o. male here for anxiety. Primary patient of Jacqueline Giron CNP. HPI Anxiety: Acute on chronic. Reports symptoms have worsened over the past 4-5 days. Exacerbating factors - unemployment, waiting for feedback on recent job interview. Current medical therapy - Vistaril, as needed. Has only taken the Vistaril 3x in the last 3 months. Not currently in counseling, secondary to cost. Patient reports he feels overwhelmed, particularly in the morning upon waking. Symptoms include difficulty maintaining sleep, chest tightness, racing heart and brain fog. Reports hx of michelle attacks, most recently 2 months ago. Patient attributes this to THC use and reports he has stopped THC 1 month ago. Supplements: None Energy Drink: 1 celsius per day, has reportedly weaned down from 3 cans per day Tobacco: Occasionally vapes nicotine Alcohol: 6-10 cans of beer weekly. Denies any illicit drug use. Hx of palpitations. Completed event monitor in 01/2023 that was unremarkable. Reviewed by Provider: Tobacco Allergies Meds Problems Med Hx Surg Hx Fam Hx Review of Systems Constitutional: Negative for activity change and appetite change. Respiratory: Negative for shortness of breath. Cardiovascular: Negative for chest pain. Gastrointestinal: Negative for abdominal pain. Neurological: Negative for dizziness and headaches. Psychiatric/Behavioral: Positive for decreased concentration and sleep disturbance. The patient is nervous/anxious. Objective BP 123/77 (BP Location: Left arm) Pulse 93 Temp 99 degrees F (37.2 degrees C) Wt 75.3 kg (166 lb 1.6 oz) SpO2 98% BMI 23.83 kg/m Physical Exam Constitutional: General: He is not in acute distress. HENT: Head: Normocephalic and atraumatic. Cardiovascular: Rate and Rhythm: Normal rate and regular rhythm. Pulses: Normal pulses. Heart sounds: Normal heart sounds. No murmur heard. Pulmonary: Effort: Pulmonary effort is normal. Breath sounds: Normal breath sounds. No wheezing. Skin: General: Skin is warm and dry. Neurological: General: No focal deficit present. Mental Status: He is alert. Psychiatric: Mood and Affect: Mood normal. Behavior: Behavior normal. Assessment & Plan Problem List Items Addressed This Visit HEMALATHA (generalized anxiety disorder) - Primary Acute on chronic. Exacerbated by recent life stressors Discussed increasing vistaril to 50 mg as needed Encouraged to stop use of energy drinks Stop all nicotine use, including vaping Stop alcohol use Follow-up as need with PCP AUTHENTICATED BY LU CASTRO ON 07/30/2023 13:18:[facility] of Present illness Narrative* Lu Castro CNP - 07/30/2023 12:39 PM EDT Subjective Patient ID: Kevin Gallegos is a 27 y.o. male here for anxiety. Primary patient of Jacqueline Giron CNP. HPI Anxiety: Acute on chronic. Reports symptoms have worsened over the past 4-5 days. Exacerbating factors - unemployment, waiting for feedback on recent job interview. Current medical therapy - Vistaril, as needed. Has only taken the Vistaril 3x in the last 3 months. Not currently in counseling, secondary to cost. Patient reports he feels overwhelmed, particularly in the morning upon waking. Symptoms include difficulty maintaining sleep, chest tightness, racing heart and brain fog. Reports hx of michelle attacks, most recently 2 months ago. Patient attributes this to THC use and reports he has stopped THC 1 month ago. Supplements: None Energy Drink: 1 celsius per day, has reportedly weaned down from 3 cans per day Tobacco: Occasionally vapes nicotine Alcohol: 6-10 cans of beer weekly. Denies any illicit drug use. Hx of palpitations. Completed event monitor in 01/2023 that was unremarkable. Reviewed by Provider: Tobacco Allergies Meds Problems Med Hx Surg Hx Fam Hx Review of Systems Constitutional: Negative for activity change and appetite change. Respiratory: Negative for shortness of breath. Cardiovascular: Negative for chest pain. Gastrointestinal: Negative for abdominal pain. Neurological: Negative for dizziness and headaches. Psychiatric/Behavioral: Positive for decreased concentration and sleep disturbance. The patient is nervous/anxious. Objective BP 123/77 (BP Location: Left arm) Pulse 93 Temp 99 F (37.2 C) Wt 75.3 kg (166 lb 1.6 oz) SpO2 98% BMI 23.83 kg/m Physical Exam Constitutional: General: He is not in acute distress. HENT: Head: Normocephalic and atraumatic. Cardiovascular: Rate and Rhythm: Normal rate and regular rhythm. Pulses: Normal pulses. Heart sounds: Normal heart sounds. No murmur heard. Pulmonary: Effort: Pulmonary effort is normal. Breath sounds: Normal breath sounds. No wheezing. Skin: General: Skin is warm and dry. Neurological: General: No focal deficit present. Mental Status: He is alert. Psychiatric: Mood and Affect: Mood normal. Behavior: Behavior normal. Assessment & Plan Problem List Items Addressed This Visit HEMALATHA (generalized anxiety disorder) - Primary Acute on chronic. Exacerbated by recent life stressors Discussed increasing vistaril to 50 mg as needed Encouraged to stop use of energy drinks Stop all nicotine use, including vaping Stop alcohol use Follow-up as need with PCP documented in this [id number] Evaluation + Plan note* Assessment & Plan Note - Jany Giron CNP - 04/30/2023 7:20 AM EST Associated Problem(s): HEMALATHA (generalized anxiety disorder) Chronic, improving Try Atarax as needed [id number] Miscellaneous Notes* Assessment & Plan Note - Jany Giron CNP - 04/30/2023 7:20 AM ESTAssociated Problem(s): HEMALATHA (generalized anxiety disorder) Chronic, improving Try Atarax as needed documented in this [id number] History of Present illness Narrative* Jany Giron CNP - 04/30/2023 7:08 AM EST OFFICE VISIT PROGRESS NOTE HPI patient here for recheck HEMALATHA-states doing better, still has 3-4 episodes /month. States behavioral was not covered here. Denies suicidal ideation. Denies sadness, lack of motivation, memory concentration. States sleeping well. The following portions of the patient's history were reviewed and updated as appropriate: allergies, current medications and problem list. The patient's surgical, family, and social history was reviewed and updated as appropriate. Review of Systems Review of Systems Constitutional: Negative. Respiratory: Negative. Cardiovascular: Negative. Gastrointestinal: Negative. Genitourinary: Negative. Neurological: Negative. Psychiatric/Behavioral: Negative. Vitals: 04/30/23 0648 BP: 117/72 BP Location: Right arm Patient Position: Sitting BP Cuff Size: Adult Pulse: 66 Temp: 98.6 F (37 C) TempSrc: Temporal SpO2: 98% Weight: 75 kg (165 lb 4.8 oz) Height: 5' 10 Body mass index is 23.72 kg/m . Physical Exam Physical Exam Constitutional: General: He is not in acute distress. Appearance: Normal appearance. He is normal weight. He is not ill-appearing or toxic-appearing. Cardiovascular: Rate and Rhythm: Normal rate and regular rhythm. Pulses: Normal pulses. Heart sounds: Normal heart sounds. Pulmonary: Effort: Pulmonary effort is normal. Breath sounds: Normal breath sounds. Abdominal: General: Abdomen is flat. Bowel sounds are normal. Palpations: Abdomen is soft. Musculoskeletal: Cervical back: Neck supple. Skin: General: Skin is warm. Neurological: Mental Status: He is alert and oriented to person, place, and time. Psychiatric: Mood and Affect: Mood normal. Behavior: Behavior normal. Thought Content: Thought content normal. Judgment: Judgment normal. OARRS/NARxCHECK Report Received and Assessed: No data found Date controlled substance agreement signed: No data found Date of last drug screen: No data found Functional Assessment: No data found Assessment/Plan Problem List Items Addressed This Visit HEMALATHA (generalized anxiety disorder) - Primary Chronic, improving Try Atarax as needed Relevant Medications hydrOXYzine (VISTARIL) 25 MG capsule Other Visit Diagnoses Leukopenia, unspecified type await CBC Return in about 6 months (around 10/31/2023) for Recheck HEMALATHA, Annual physical. If any referrals were placed at today's visit the patient was instructed to call the office if theyhavn't heard anything about the referral within 2 weeks of today's visit. For any new medications prescribed today, patient was educated about indications for the medication, how to take the medication and potential side effects of the medications. Jany Giron CNP 12/19/2022 3:33 PM 03/11/2023 12:00 PM 04/30/2023 7:00 AM Depression Screening Little interest or pleasure in doing things 0 2 1 Feeling down, depressed, or hopeless 0 2 1 PHQ-2 Total Score 0 4 2 Trouble falling or staying asleep, or sleeping too much 0 0 Feeling tired or having little energy 1 1 Poor appetite or overeating 1 1 Feeling bad about yourself - or that you are a failure or have let yourself or your family down 1 0 Trouble concentrating on things, such as reading the newspaper or watching television 2 2 Moving or speaking so slowly that other people could have noticed. Or the opposite - being so fidgety or restless that you have been moving around a lot more than usual 0 1 Thoughts that you would be better off , or of hurting yourself in some way 0 0 PHQ-9 Total Score 9 7 If you checked off any problems, how difficult have these problems made it for you to do your work,take care of things at home, or get along with other people? Somewhat difficult Somewhat difficult documented in this [id number] History of Present illness Narrative* Vanita Melendez MD - 03/24/2023 3:46 PM EST [facility] [address] [facility] [address] [facility] [id number] Kevin Gallegos is a 27 y.o. male being seen today, 03/24/23, Chief Complaint Patient presents with Lower Back - Pain [chief complaint] low back pain HPI Dictation: Returns after MRI which shows lumbar degenerative disc disease 4 5 and 5 1 with bulging disc and annular tears minimal left greater than right foraminal narrowing at 5 1 mild foraminalnarrowing at 4 5 show of note his pain is lower back only without radiculopathy [hpi] Physical Exam Dictation: [PE] skin lower back pain increased with range of motion Assessment and Plan Dictation: [AP] plan conservative treatment only I did recommend a trial meloxicam about see him for flareups at which point we might consider an epidural injection he understands that he is at risk to develop herniated disc over time and if he develops any radicular leg pain he should return for that reason as well I have reviewed all relevant histories, medications, allergies, and problem list items with Vamshi Gallegos during this visit. Review of Systems Constitutional: Negative for chills and fever. HENT: Negative for congestion. Respiratory: Negative for shortness of breath. Cardiovascular: Negative for chest pain. Gastrointestinal: Negative for diarrhea, nausea and vomiting. Neurological: Negative for headaches. Psychiatric/Behavioral: Negative for behavioral problems. There were no vitals taken for this visit. Imaging: No results found. 1. Lumbar degenerative disc disease Return if symptoms worsen or fail to improve. Vanita Melendez MD documented in this [id number] History of Present illness Narrative* Rosanna Godinez MA - 03/11/2023 12:26 PM EST Images from the original note were not included. Pt called to discuss referral after receiving information via [employer]. Pt consented to and underwent screening. Pt reported no previous counseling history. Pt's friend is in counseling and recommended that he try it. Pt reported managing his anxiety with nicotine. When wakes up does not feel like se lf and reverts back to nicotine. Pt consented to and underwent screening metrics. Discussed I program further. Pt was very interested in working on copping strategies and elected to schedule initial session with [facility]. Pt was added to [facility] registry today. Pt denied any further needs at this time. Behavioral Health Screenings: 03/11/2023 12:00 PM HEMALATHA-7 HEMALATHA-7 Score 14 03/11/2023 12:00 PM PHQ-9 PHQ-9 Total Score 9 documented in this [id number] History of Present illness Narrative* Vanita Melendez MD - 03/09/2023 4:27 PM EST [facility] [address] [facility] [address] [facility] [id number] Kevin Gallegos is a 27 y.o. male being seen today, 03/09/23, Chief Complaint Patient presents with Lower Back - Pain [chief complaint] back pain radiation left lower extremity HPI Dictation: Returns after patient physical therapy without any substantial pain relief with degenerative disease 4 5 and 5 S1 with loss of normal lordotic curvature he has been symptomatic for 7 or 8 years [hpi] Physical Exam Dictation: [PE] there is pain with lumbar flexion paraspinal spasm no gross motor sense reflex asymmetry lowerextremities Assessment and Plan Dictation: [AP] there is chronic symptoms without response to conservative treatment including physical therapy MRI recommended with recommendations to follow I have reviewed all relevant histories, medications, allergies, and problem list items with Vamshi Gallegos during this visit. Review of Systems Constitutional: Negative for chills and fever. HENT: Negative for congestion. Respiratory: Negative for shortness of breath. Cardiovascular: Negative for chest pain. Gastrointestinal: Negative for diarrhea, nausea and vomiting. Neurological: Negative for headaches. Psychiatric/Behavioral: Negative for behavioral problems. There were no vitals taken for this visit. Imaging: No results found. 1. Lumbar radiculopathy MR Lumbar Spine Without Contrast 2. Lumbar degenerative disc disease MR Lumbar Spine Without Contrast Return for post mri. Vanita Melendez MD documented in this [id number] History of Present illness Narrative* Tom Barker, PT - 02/24/2023 4:45 PM EST [facility] TREATMENT NOTE Today's Date 02/24/2023 Patient Name: Kevin Gallegos Date of : 1995 Current Visit #: 9 Authorized Visits: 38 Case Name: Lumbosacral sprain History: Pre-Treatment Pain Scale: 7 Symptoms: worsened over recent days Functional Diagnosis: 1. Lumbosacral pain Clinical Information: Subjective: Client eager to get MRI; wonders why he can perform in season, but after season notes decline w/o any traumatic event, only slight reduction in training intensity. Objective Treatments: Physical Therapy Exercise Log - 02/24/23 1703 OTHER Notes TOMPT initial pain 5-6/10, 2wk5 Vitals 4;50-5:30 Modalities Parameters .[id number] x7n to L Lumbar paraspinals L1-L5 more vertical insertion, x2 to L glute medius, x2 to L 12th rib (inferior).30 x30mm x1 11n total; PT Treatment Times Total Treatment Time 35 Goals: Physical Therapy Ortho Goals: 1. The patient will safely, correctly and independently demonstrate the ability to perform a progressive HEP to achieve maximal rehabilitation potential and prevent this condition from recurring. 2. PSFS: Able to tolerate: Running 70-80% effort for 40yards 10/10->4/10 or less Leg / quad workouts 10/10->4/10 or less Forward bending (dressing) 6/10->3/10 or less Carrying 50# 10/10->4/10 or less Walking 25K steps 6/10->4/10 or less 3. Able to perform 1+min holds in multiple core stability activitities. 4. Decrease pain from 6/10 daily with activity to 3/10 or less with full activity at home and work 5. Patient to be independent with pain management methods including specific localized self application of thermal and/or cryo agents, stretching/self- mobilization, self-taping/supportive devices, localized tissue manipulation/pressure, self massage, and OTC topical analgesics; and awareness of products which may be available to assist in these strategies. 6. Patient to effectively apply relevant principles of regional body biomechanics and task related ergonomics. 7. Patient to verbalize adequate understanding of rehabilitation process; also ability to recognizesigns and sx of too much or dysfunctional exercise, activity, or posture. 8. Patient will increase FOTO score from 48 to at least 64 to show MDC/MCII and expected functionaloutcome in 5 weeks Patient Education: Diagnosis and recovery specific education with patient verbalized understanding. Post-Treatment Pain Scale: 6 Assessment: Patient had an expected response to treatment. Skilled Intervention demonstrated by modifications of treatment per exercise log including assessment of patient's response and safety interventions per exercise log. Progress towards goals unexpected due to higher than anticipated complexity. Plan for Next Visit: Treatment Visit with focus on sx modulation - prep for discharge. Tom Barker PT State License, [id number] documented in this [id number] History of Present illness Narrative* Tom Barker, PT - 02/19/2023 4:45 PM EST [facility] TREATMENT NOTE Today's Date 02/19/2023 Patient Name: Kevin Gallegos Date of : 1995 Current Visit #: 8 Authorized Visits: 30 Case Name: Lumbosacral sprain History: Pre-Treatment Pain Scale: 5 Symptoms: stiffness/tightness Functional Diagnosis: 1. Lumbosacral pain Clinical Information: Subjective: localizes pain to L hip and L lower back - identifies with quadraus lumb TrP pain pattern Objective Treatments: Physical Therapy Exercise Log - 02/19/23 1715 OTHER Notes TOMPT initial pain 5-6/10, 2wk5 Vitals 4;50-5:30 Modalities Parameters .[id number] x5 to L quadratus lumborum; x3n to L Lumbar paraspinals L1, L3, L5 diagonal insertion, x2 to L glute medius, .30 x30mm x1 10n total; PT Treatment Times Total Treatment Time 35 Goals: Physical Therapy Ortho Goals: 1. The patient will safely, correctly and independently demonstrate the ability to perform a progressive HEP to achieve maximal rehabilitation potential and prevent this condition from recurring. 2. PSFS: Able to tolerate: Running 70-80% effort for 40yards 10/10->4/10 or less Leg / quad workouts 10/10->4/10 or less Forward bending (dressing) 6/10->3/10 or less Carrying 50# 10/10->4/10 or less Walking 25K steps /10->4/10 or less 3. Able to perform 1+min holds in multiple core stability activitities. 4. Decrease pain from 6/10 daily with activity to 3/10 or less with full activity at home and work 5. Patient to be independent with pain management methods including specific localized self application of thermal and/or cryo agents, stretching/self- mobilization, self-taping/supportive devices, localized tissue manipulation/pressure, self massage, and OTC topical analgesics; and awareness of products which may be available to assist in these strategies. 6. Patient to effectively apply relevant principles of regional body biomechanics and task related ergonomics. 7. Patient to verbalize adequate understanding of rehabilitation process; also ability to recognizesigns and sx of too much or dysfunctional exercise, activity, or posture. 8. Patient will increase FOTO score from 48 to at least 64 to show MDC/MCII and expected functionaloutcome in 5 weeks Patient Education: Diagnosis and recovery specific education with patient demonstrated understanding. Post-Treatment Pain Scale: 3 Assessment: Patient had an expected response to treatment. Good LTR in QL and paraspinals Skilled Intervention demonstrated by modifications of treatment per exercise log including assessment of patient's response and safety interventions per exercise log. Progress towards goals unexpected due to higher than anticipated complexity. Plan for Next Visit: Treatment Visit with focus on sx modulation w/ DN Tom Barker PT State License, [id number] documented in this [id number] History of Present illness Narrative* Tom Barker, PT - 02/17/2023 4:45 PM EST [facility] DAILY TREATMENT NOTE Today's Date 02/17/2023 Patient Name: Kevin Gallegos Date of : 1995 Current Visit #: 7 Authorized Visits: 30 Case Name: Lumbosacral sprain History: Pre-Treatment Pain Scale: 3 Symptoms: gradually improved Functional Diagnosis: 1. Lumbosacral pain Clinical Information: Subjective: Feels DN was a good relief Objective Treatments: Physical Therapy Exercise Log - 02/17/23 4435 OTHER Notes TOMPT initial pain 5-6/10, 2wk5 Vitals 4:47PM-5:27PM Therapeutic Exercise (14551) Parameters [employer] bike for warm-up 6min Modalities Parameters .[id number] x5 to L Lumbar paraspinals, x4 to L glute medius, .30 x30mm x1 to L peroneus longus 5 min in situ 10n total PT Treatment Times Therex Total Time 8 Direct Treatment Time 8 Total Treatment Time 40 Goals: Physical Therapy Ortho Goals: 1. The patient will safely, correctly and independently demonstrate the ability to perform a progressive HEP to achieve maximal rehabilitation potential and prevent this condition from recurring. 2. PSFS: Able to tolerate: Running 70-80% effort for 40yards 10/10->4/10 or less Leg / quad workouts 10/10->4/10 or less Forward bending (dressing) 6/10->3/10 or less Carrying 50# 10/10->4/10 or less Walking 25K steps 6/10->4/10 or less 3. Able to perform 1+min holds in multiple core stability activitities. 4. Decrease pain from 6/10 daily with activity to 3/10 or less with full activity at home and work 5. Patient to be independent with pain management methods including specific localized self application of thermal and/or cryo agents, stretching/self- mobilization, self-taping/supportive devices, localized tissue manipulation/pressure, self massage, and OTC topical analgesics; and awareness of products which may be available to assist in these strategies. 6. Patient to effectively apply relevant principles of regional body biomechanics and task related ergonomics. 7. Patient to verbalize adequate understanding of rehabilitation process; also ability to recognizesigns and sx of too much or dysfunctional exercise, activity, or posture. 8. Patient will increase FOTO score from 48 to at least 64 to show MDC/MCII and expected functionaloutcome in 5 weeks Patient Education: Diagnosis and recovery specific education with patient verbalized understanding and written information provided . Post-Treatment Pain Scale: 4 Assessment: Patient had an expected response to treatment. Skilled Intervention demonstrated by modifications of treatment per exercise log including decreased load, decreased intensity, and assessment of patient's response and safety interventions per exercise log. Progress towards goals unexpected due to higher than anticipated complexity. Plan for Next Visit: Treatment Visit with focus on assessment of client's response to DN Tom Barker PT State License, [id number] documented in this [id number] History of Present illness Narrative* Cesilia Sotelo, WELFARE VISITOR - 02/12/2023 4:45 PM EST Images from the original note were not included. [facility] DAILY TREATMENT NOTE Today's Date 02/13/2023 Patient Name: Kevin Gallegos Date of : 1995 Current Visit #: 6 Authorized Visits: 30 Case Name: Lumbosacral sprain History: Pre-Treatment Pain Scale: Sore Symptoms: gradually improved Functional Diagnosis: 1. Lumbosacral pain Clinical Information: Subjective: Pt reported compliance with HEP this date. Pt reported he had slight relief with PA mobs this date. Pt reported he has experienced minimum relief since starting physical therapy. Pt reported he is 27 years old and is having trouble putting his socks on d/t inability and pain. Objective Exercises as logged in flow sheet this date. Treatments: Physical Therapy Exercise Log - 02/12/23 1631 OTHER Precautions/Contraindications -- Notes TOMPT initial pain 5-6/10, 2wk5 Vitals 4:30PM-5:25PM Therapeutic Exercise (56003) Intervention Bridges on table with ABd band 25 x 5 Parameters prone planks (full) 40s x 3 Intervention Modified side plank with hip abd 2 x 10 bilat Parameters Prone alt opp x 10 Intervention Bridge with hip add 2x10 Intervention refer to manual Manual Therapy (76101) Intervention Manual Lumbar PA mobs Gr III 10' Self Care (67300) Intervention -- Modalities Modalities -- Dry Needling Parameters [id number] x6 to L Lumbar paraspinals 5 min in situ PT Treatment Times Therex Total Time 35 Manual Therapy Total Time 20 Direct Treatment Time 55 Total Treatment Time 55 Goals: Physical Therapy Ortho Goals: 1. The patient will safely, correctly and independently demonstrate the ability to perform a progressive HEP to achieve maximal rehabilitation potential and prevent this condition from recurring. 2. PSFS: Able to tolerate: Running 70-80% effort for 40yards 10/10->4/10 or less Leg / quad workouts 10/10->4/10 or less Forward bending (dressing) 6/10->3/10 or less Carrying 50# 10/10->4/10 or less Walking 25K steps 6/10->4/10 or less 3. Able to perform 1+min holds in multiple core stability activitities. 4. Decrease pain from 6/10 daily with activity to 3/10 or less with full activity at home and work 5. Patient to be independent with pain management methods including specific localized self application of thermal and/or cryo agents, stretching/self- mobilization, self-taping/supportive devices, localized tissue manipulation/pressure, self massage, and OTC topical analgesics; and awareness of products which may be available to assist in these strategies. 6. Patient to effectively apply relevant principles of regional body biomechanics and task related ergonomics. 7. Patient to verbalize adequate understanding of rehabilitation process; also ability to recognizesigns and sx of too much or dysfunctional exercise, activity, or posture. 8. Patient will increase FOTO score from 48 to at least 64 to show MDC/MCII and expected functionaloutcome in 5 weeks Patient Education: Quality of movement, HEP Adherence, and Pain Management with patient demonstrated understanding and verbalized understanding. Post-Treatment Pain Scale: sore Assessment: Patient had an expected response to treatment. Pt required VC's and TC's this date to increase pt's understanding and improve pt's body mechanics this date. Patient tolerated DN well thisdate with no adverse effects. Skilled Intervention demonstrated by modifications of treatment per exercise log including assessment of patient's response and safety interventions per exercise log. Progress towards goals as expected. Plan for Next Visit: Treatment Visit with focus on Progress as pt is able to tolerate per plan of care. Cesilia Sotelo PTA state License, [id number] documented in this [id number] History of Present illness Narrative* Livier Kirkpatrick PTA - 02/10/2023 4:45 PM EST [facility] DAILY TREATMENT NOTE Today's Date 02/10/2023 Patient Name: Kevin Gallegos Date of : 1995 Current Visit #: 5 Authorized Visits: 30 Case Name: Lumbosacral sprain History: Pre-Treatment Pain Scale: sore Symptoms: gradually improved Functional Diagnosis: 1. Lumbosacral pain Clinical Information: Subjective: Pt had chiropractic adjustment prior to arrival. States he has burning pain in L SIJ that is typical and persistent. CP felt good last time but no long carryover of sx relief. Objective No pelvic obliquity noted in SIJ. Pain with prone hip extension, L>R, worse in quadruped. Treatments: Physical Therapy Exercise Log - 02/10/23 1728 OTHER Precautions/Contraindications 4:37PM-5:28PM Notes TOMPT initial pain 5-6/10, 2wk5 Therapeutic Exercise (61677) Intervention Bridges on table with ABd band 25 x 5 Parameters prone planks (full) 40s x 1 p! Intervention Modified side plank with hip abd 2 x 10 bilat Parameters Prone alt opp x 10 Intervention Bridge with hip add - NV Intervention refer to manual Manual Therapy (32468) Intervention Manual Lumbar PA mobs Gr III 5 min Self Care (81893) Intervention ice pack demo; discussed utility of ice packs vs ice bath. Instructed to trial TID icepacks over weekend. Discussed less is more and that it seems he is doing too much. decided to tryice pack today. REviewed SIJ mechanics and sx; discussed other potential sources of his pain. PT Treatment Times Therex Total Time 46 Manual Therapy Total Time 5 Direct Treatment Time 51 Total Treatment Time 51 Goals: Physical Therapy Ortho Goals: 1. The patient will safely, correctly and independently demonstrate the ability to perform a progressive HEP to achieve maximal rehabilitation potential and prevent this condition from recurring. 2. PSFS: Able to tolerate: Running 70-80% effort for 40yards 10/10->4/10 or less Leg / quad workouts 10/10->4/10 or less Forward bending (dressing) 6/10->3/10 or less Carrying 50# 10/10->4/10 or less Walking 25K steps 6/10->4/10 or less 3. Able to perform 1+min holds in multiple core stability activitities. 4. Decrease pain from 6/10 daily with activity to 3/10 or less with full activity at home and work 5. Patient to be independent with pain management methods including specific localized self application of thermal and/or cryo agents, stretching/self- mobilization, self-taping/supportive devices, localized tissue manipulation/pressure, self massage, and OTC topical analgesics; and awareness of products which may be available to assist in these strategies. 6. Patient to effectively apply relevant principles of regional body biomechanics and task related ergonomics. 7. Patient to verbalize adequate understanding of rehabilitation process; also ability to recognizesigns and sx of too much or dysfunctional exercise, activity, or posture. 8. Patient will increase FOTO score from 48 to at least 64 to show MDC/MCII and expected functionaloutcome in 5 weeks Patient Education: Quality of movement, Verbal HEP, and Diagnosis and recovery specific education with patient demonstrated understanding and verbalized understanding. Post-Treatment Pain Scale: sore Assessment: Patient had an expected response to treatment. Pt had continued burning sensation with most interventions. Hypomobility noted with lumber PA mobs, which may be a focus area, along with core and glute strength. Skilled Intervention demonstrated by modifications of treatment per exercise log including increased load, increased cueing, and assessment of patient's response and safety interventions per exerciselog. Progress towards goals as expected. Plan for Next Visit: Treatment Visit with focus on continue Livier Kirkpatrick PTA STATE LICENSE, [id number] documented in this [id number] History of Present illness Narrative* Rosanna Godinez MA - 02/06/2023 4:14 PM EST This [facility] scanning clerk contacted the patient regarding referral to B[facility] program placed by PCP at request of [facility]. Note: Updated screening required. HEMALATHA is referral dx. The patient did not answer. Voice mailmessage was left with request for return call. SECOND attempt. [phone] documented in this [id number] History of Present illness Narrative* Tom Barker, PT - 02/05/2023 4:45 PM EST [facility] DAILY TREATMENT NOTE Today's Date 02/05/2023 Patient Name: Kevin Gallegos Date of : 1995 Current Visit #: 4 Authorized Visits: 30 Case Name: Lumbosacral sprain History: Pre-Treatment Pain Scale: 5 Symptoms: worse p previous session Functional Diagnosis: 1. Sprain of ligament of lumbosacral joint, initial encounter [S33.9XXA] Clinical Information: Subjective: Feels the SIJ support helps a lot when active - but doesn't want to be dependent Objective Treatments: Physical Therapy Exercise Log - 02/05/23 1654 OTHER Precautions/Contraindications 4:47PM-5:30PM Notes TOMPT initial pain 5-6/10, 2wk5 Self Care (26570) Intervention ice pack demo; discussed utility of ice packs vs ice bath. Instructed to trial TID icepacks over weekend. Discussed less is more and that it seems he is doing too much. decided to tryice pack today. REviewed SIJ mechanics and sx; discussed other potential sources of his pain. PT Treatment Times Therex Total Time 8 Self Care Total Time 25 Direct Treatment Time 33 Total Treatment Time 35 Goals: Physical Therapy Ortho Goals: 1. The patient will safely, correctly and independently demonstrate the ability to perform a progressive HEP to achieve maximal rehabilitation potential and prevent this condition from recurring. 2. PSFS: Able to tolerate: Running 70-80% effort for 40yards 10/10->4/10 or less Leg / quad workouts 10/10->4/10 or less Forward bending (dressing) 6/10->3/10 or less Carrying 50# 10/10->4/10 or less Walking 25K steps 6/10->4/10 or less 3. Able to perform 1+min holds in multiple core stability activitities. 4. Decrease pain from 6/10 daily with activity to 3/10 or less with full activity at home and work 5. Patient to be independent with pain management methods including specific localized self application of thermal and/or cryo agents, stretching/self- mobilization, self-taping/supportive devices, localized tissue manipulation/pressure, self massage, and OTC topical analgesics; and awareness of products which may be available to assist in these strategies. 6. Patient to effectively apply relevant principles of regional body biomechanics and task related ergonomics. 7. Patient to verbalize adequate understanding of rehabilitation process; also ability to recognizesigns and sx of too much or dysfunctional exercise, activity, or posture. 8. Patient will increase FOTO score from 48 to at least 64 to show MDC/MCII and expected functionaloutcome in 5 weeks Patient Education: Diagnosis and recovery specific education with patient verbalized understanding. Post-Treatment Pain Scale: 5 Assessment: Patient had an expected response to treatment. Skilled Intervention demonstrated by modifications of treatment per exercise log including assessment of patient's response and safety interventions per exercise log. Progress towards goals unexpected due to higher than anticipated complexity. Plan for Next Visit: Treatment Visit with focus on sx modulation. Ice packs if still sore. Tom Barker PT State License, [id number] documented in this [id number] History of Present illness Narrative* Cesilia Sotelo, YULIET - 02/03/2023 4:45 PM EST [facility] DAILY TREATMENT NOTE Today's Date 02/03/2023 Patient Name: Kevin Gallegos Date of : 1995 Current Visit #: 3 Authorized Visits: 30 Case Name: Lumbosacral sprain History: Pre-Treatment Pain Scale: 4/10 LBP L>R Symptoms: gradually improved Functional Diagnosis: 1. Sprain of ligament of lumbosacral joint, initial encounter Clinical Information: Subjective: Pt reported compliance with HEP this date. Pt reported he has been sore from playing kick ball at work. Pt reported he is applying a cold pack prior to going to sleep. Objective SCI Fit to start followed by exercises as logged in flow sheet this date. Treatments: Physical Therapy Exercise Log - 02/03/23 1646 OTHER Precautions/Contraindications 4:47PM-5:30PM Notes TOMPT initial pain, 2wk5 Vitals Has negative clinical nerve tension signs; needs incremental core strengthening emphasizing increasing holding endurance, shuttle or mini-squats shallow only at first. No SLS on LLE. 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 Therapeutic Exercise (26355) Intervention Bridges on table with ABd band; 10s, 20s 30s, 40s Parameters prone planks (full) 40s x3 Intervention side planks full 40s x2 B Parameters quadruped reach 15s x5 B Intervention anti-rotation w/ free motion 10# 2 x10 B NT Parameters rows with core engage w/ tband or free motion BUE 10# hold / may 07s x3 NT Manual Therapy (81168) Intervention Trialed over SB traction 3' Parameters Trialed lateral hip mob 3' Additional Exercises Add more exercises? Yes Self Care (21632) Intervention -- Parameters -- PT Treatment Times Therex Total Time 43 Direct Treatment Time 43 Total Treatment Time 43 Goals: Physical Therapy Ortho Goals: 1. The patient will safely, correctly and independently demonstrate the ability to perform a progressive HEP to achieve maximal rehabilitation potential and prevent this condition from recurring. 2. PSFS: Able to tolerate: Running 70-80% effort for 40yards 10/10->4/10 or less Leg / quad workouts 10/10->4/10 or less Forward bending (dressing) 6/10->3/10 or less Carrying 50# 10/10->4/10 or less Walking 25K steps /10->4/10 or less 3. Able to perform 1+min holds in multiple core stability activitities. 4. Decrease pain from 6/10 daily with activity to 3/10 or less with full activity at home and work 5. Patient to be independent with pain management methods including specific localized self application of thermal and/or cryo agents, stretching/self- mobilization, self-taping/supportive devices, localized tissue manipulation/pressure, self massage, and OTC topical analgesics; and awareness of products which may be available to assist in these strategies. 6. Patient to effectively apply relevant principles of regional body biomechanics and task related ergonomics. 7. Patient to verbalize adequate understanding of rehabilitation process; also ability to recognizesigns and sx of too much or dysfunctional exercise, activity, or posture. 8. Patient will increase FOTO score from 48 to at least 64 to show MDC/MCII and expected functionaloutcome in 5 weeks Patient Education: Quality of movement, HEP Adherence, and Pain Management with patient demonstrated understanding and verbalized understanding. Post-Treatment Pain Scale: 7/10 LBP into L Hip Assessment: Patient had an expected response to treatment. Pt required VC's and TC's this date to increase pt's understanding and improve pt's body mechanics this date. Pt reported burning/aching pain with (L) side plank. Skilled Intervention demonstrated by modifications of treatment per exercise log including increased intensity, increased volume, and assessment of patient's response and safety interventions per exercise log. Progress towards goals as expected. Plan for Next Visit: Treatment Visit with focus on Progress as pt is able to tolerate per plan of care. Cesilia Sotelo PTA state License, [id number] documented in this [id number] History of Present illness Narrative* Rosanna Godinez MA - 01/30/2023 3:41 PM EST Return call to pt resulted in VM with request for return call. Will follow-up in one week. * Rosanna Godinez MA - 01/29/2023 2:01 PM EST This [facility] scanning clerk contacted the patient regarding referral to [facility] program placed by PCP at request of [facility]. Note: Updated screening required. HEMALATHA is referral dx. [phone] Introduced self and reason for call. Pt was at work and unable to undergo screening or discuss referral. Pt requested a return call between 3:00 pm and 4:00 pm while he is between his two jobs. Pt may also call when free. documented in this [id number] History of Present illness Narrative* Jany Giron CNP - 01/28/2023 8:29 AM EST OFFICE VISIT PROGRESS NOTE HPI patient here to get established Complains of heart palpitation x 2 weeks on and off, worse on Thursday- to ER. Denies chest pain SOB,nausea or vomiting dizziness. States has anxiety his whole life, dad has too. Has done counseling with some relief. Denies sadness or suicidal ideation. The following portions of the patient's history were reviewed and updated as appropriate: allergies, current medications and problem list. The patient's surgical, family, and social history was reviewed and updated as appropriate. Review of Systems Review of Systems Constitutional: Negative. Respiratory: Negative. Cardiovascular: Negative. Gastrointestinal: Negative. Genitourinary: Negative. Neurological: Negative. Psychiatric/Behavioral: Negative for sleep disturbance and suicidal ideas. The patient is nervous/anxious. Vitals: 01/28/23 0825 BP: 130/79 BP Location: Right arm Patient Position: Sitting BP Cuff Size: Adult Pulse: 70 Temp: 98 F (36.7 C) TempSrc: Temporal SpO2: 98% Weight: 74.4 kg (164 lb 1.6 oz) Height: 5' 10 Body mass index is 23.55 kg/m . Physical Exam Physical Exam Constitutional: General: He is not in acute distress. Appearance: Normal appearance. He is normal weight. He is not ill-appearing or toxic-appearing. Neck: Vascular: No carotid bruit. Cardiovascular: Rate and Rhythm: Normal rate and regular rhythm. Pulses: Normal pulses. Heart sounds: Normal heart sounds. Pulmonary: Effort: Pulmonary effort is normal. Breath sounds: Normal breath sounds. Abdominal: General: Abdomen is flat. Bowel sounds are normal. Palpations: Abdomen is soft. Musculoskeletal: Cervical back: Neck supple. Lymphadenopathy: Cervical: No cervical adenopathy. Skin: General: Skin is warm. Neurological: Mental Status: He is alert and oriented to person, place, and time. Psychiatric: Mood and Affect: Mood normal. Behavior: Behavior normal. Thought Content: Thought content normal. Judgment: Judgment normal. OARRS/NARxCHECK Report Received and Assessed: No data found Date controlled substance agreement signed: No data found Date of last drug screen: No data found Functional Assessment: No data found Assessment/Plan Problem List Items Addressed This Visit HEMALATHA (generalized anxiety disorder) Relevant Orders Ambulatory Ref to [facility] Fraternity Adviser Other Visit Diagnoses Healthcare maintenance - Primary Relevant Orders HIV Antibody (HIV1/HIV2) Hepatitis C Antibody CBC and Differential Comprehensive Metabolic Panel Lipid Panel TSH with Reflex Free T4 Heart palpitations Relevant Orders Ambulatory Ref to [facility] Fraternity Adviser Holter monitor- up to 48 hour Return in about 3 months (around 04/29/2023) for Recheck HEMALATHA. If any referrals were placed at today's visit the patient was instructed to call the office if theyhavn't heard anything about the referral within 2 weeks of today's visit. For any new medications prescribed today, patient was educated about indications for the medication, how to take the medication and potential side effects of the medications. Jany Giron CNP documented in this [id number] History of Present illness Narrative* Tom Barker, PT - 01/27/2023 4:45 PM EST [facility] DAILY TREATMENT NOTE Today's Date 01/27/2023 Patient Name: Kevin Gallegos Date of : 1995 Current Visit #: 2 Authorized Visits: 30 Case Name: Lumbosacral sprain History: Pre-Treatment Pain Scale: 3 Symptoms: gradually improved Functional Diagnosis: No diagnosis found. Clinical Information: Subjective: Doing core workout 2-3x/wk Objective Treatments: Physical Therapy Exercise Log - 01/27/23 1648 OTHER Notes 4:45-5:30p TOMPT initial pain, 2wk5 Vitals Has negative clinical nerve tension signs; needs incremental core strengthening emphasizing increasing holding endurance, shuttle or mini-squats shallow only at first. No SLS on LLE. 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 Therapeutic Exercise (03951) Intervention Bridges on table with ABd band; 10s, 20s 30s, 40s Parameters prone planks (full) 40s x3 Intervention side planks full 40s x2 B Parameters quadruped reach 15s x5 B Intervention anti-rotation w/ free motion 10# 2 x10 B Parameters rows with core engage w/ tband or free motion BUE 10# hold w/ april 15s x3 Manual Therapy (66574) Intervention -- Self Care (67556) Intervention ice massage demo with instruction regarding cryo effects/benefits Parameters 10min PT Treatment Times Therex Total Time 35 Self Care Total Time 10 Direct Treatment Time 45 Total Treatment Time 45 Goals: Physical Therapy Ortho Goals: 1. The patient will safely, correctly and independently demonstrate the ability to perform a progressive HEP to achieve maximal rehabilitation potential and prevent this condition from recurring. 2. PSFS: Able to tolerate: Running 70-80% effort for 40yards 10/10->4/10 or less Leg / quad workouts 10/10->4/10 or less Forward bending (dressing) 6/10->3/10 or less Carrying 50# 10/10->4/10 or less Walking 25K steps 6/10->4/10 or less 3. Able to perform 1+min holds in multiple core stability activitities. 4. Decrease pain from 6/10 daily with activity to 3/10 or less with full activity at home and work 5. Patient to be independent with pain management methods including specific localized self application of thermal and/or cryo agents, stretching/self- mobilization, self-taping/supportive devices, localized tissue manipulation/pressure, self massage, and OTC topical analgesics; and awareness of products which may be available to assist in these strategies. 6. Patient to effectively apply relevant principles of regional body biomechanics and task related ergonomics. 7. Patient to verbalize adequate understanding of rehabilitation process; also ability to recognizesigns and sx of too much or dysfunctional exercise, activity, or posture. 8. Patient will increase FOTO score from 48 to at least 64 to show MDC/MCII and expected functionaloutcome in 5 weeks Patient Education: Verbal HEP and Diagnosis and recovery specific education with patient demonstrated understanding and verbalized understanding. Post-Treatment Pain Scale: 5 Assessment: Patient had an expected response to treatment. Excellent form and very high core endruance. But client may tend to over-work. Sx noticably increased p session. Skilled Intervention demonstrated by modifications of treatment per exercise log including increased intensity, increased volume, and assessment of patient's response and safety interventions per exercise log. Progress towards goals as expected. Plan for Next Visit: Treatment Visit with focus on sx modulatoin, establishing baseline treatment program for brennen Tom Barker PT State License, [id number] documented in this [id number] History of Present illness Narrative* Tom Barker, PT - 01/19/2023 4:45 PM EST [facility] Evaluation Today's Date 01/19/2023 Patient Name: Kevin Gallegos Date of : 1995 Case Name: Lumbosacral sprain Functional Diagnosis: 1. 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 Subjective History: ONSET: Notes that this is his 3rd significant flair-up in 2015. Original injury in HS football - hard tackle and had difficulty walking for 4 days (2016). CC: Leg workouts -> increase back pain; lifting/moving heavy plates increases back irritation. Has difficulty running, shooting hoops, Localizes pain to L lower back and hip (denies radiation). Notes L knee feels super tight and achy 2 weeks ago was 7-8/10; but now (after doing prone press ups). Makes him sore/stiff, but decreased the severe LBP. Driving makes him stiff. Wants to get MRI Overall rating of health: Excellent Pain Scale Pain location: lumbar spine Average Pain: 5/10 Pain at highest: 6/10 Aggravating factors: bending forward, squatting, carrying, Personal Goals: Running 70-80% effort for 40yards 10/10->4/10 or less Leg / quad workouts 10/10->4/10 or less Forward bending (dressing) 6/10->3/10 or less Carrying 50# 10/10->4/10 or less Walking 25K steps 6/10->4/10 or less Sleep Assessment Sleep disturbance: no Sleep Disturbance Lumbar Spine Gait: Comments: 50ft in 15s= 3.3ft/s Asymmetrics: Leg length: equal Special Tests Slump Right: no Slump R Left: no Slump L SLR Right: no SLR R Left: no SLR L SIJ dysfunction: SIJ Dysfunction TTP L PSIS Pelvic mechanical support test positive on doffing Palpation/ Tenderness: TTP in L quadratus lumborum, glute min/med, malcolm longus, vastus lateralis, lateral hamstring. Client notes his hip and LE sx strongly resemble TrP referral patterns of above mm. Treatments: Physical Therapy Exercise Log - 01/19/23 4127 OTHER Notes 4:40-5:30p TOMPT initial pain, 2wk5 Vitals Has negative clinical nerve tension signs; needs incremental core strengthening emphasizing increasing holding endurance, shuttle or mini-squats shallow only at first. No SLS on LLE. 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 Therapeutic Exercise (88451) Intervention Bridges on table with ABd band; on therapy ball intro ex Parameters prone planks (to knee? full?) Intervention side planks to knee Parameters quadruped reach hold Intervention anti-rotation w/ tband or free motion Parameters rows with core engage w/ tband or free motion Manual Therapy (39946) Intervention STM/DTM to quad lumb, glute med/min Self Care (88150) Intervention INSTRUCTED in the following: relationship and mechanics of hips and L/S spine with discussion of relevant ligaments and mm with anatomical model, Discussed relationship between SIjt, andTrP phenomena with mm related referred pain TrPs in glutes and inhibition of quads -> LE pain. Also self cryo of L/S spine with biophysics of real ice vs cold pack. Mechanics of L/S support with an atomical models and diagrams and relationship to various muscles and structures in lumbo-pelvic girdle. Parameters 10min PT Treatment Times Self Care Total Time 10 Direct Treatment Time 10 Total Treatment Time 50 Treatment Plan: Frequency of Visits: twice per week Duration: 5 weeks Interventions: Therapeutic Exercise (75702), Neuromuscular Re-Education (42978), Manual Therapy (79434), Self Care (72493), Hot/Cold Pack (26057), Electrical Stimulation - Unattended (60706), Mechanical Traction (07999), and Dry Needling (92078) Rehab Potential: good Goals: Physical Therapy Ortho Goals: 1. The patient will safely, correctly and independently demonstrate the ability to perform a progressive HEP to achieve maximal rehabilitation potential and prevent this condition from recurring. 2. PSFS: Able to tolerate: Running 70-80% effort for 40yards 10/10->4/10 or less Leg / quad workouts 10/10->4/10 or less Forward bending (dressing) 6/10->3/10 or less Carrying 50# 10/10->4/10 or less Walking 25K steps 6/10->4/10 or less 3. Able to perform 1+min holds in multiple core stability activitities. 4. Decrease pain from 6/10 daily with activity to 3/10 or less with full activity at home and work 5. Patient to be independent with pain management methods including specific localized self application of thermal and/or cryo agents, stretching/self- mobilization, self-taping/supportive devices, localized tissue manipulation/pressure, self massage, and OTC topical analgesics; and awareness of products which may be available to assist in these strategies. 6. Patient to effectively apply relevant principles of regional body biomechanics and task related ergonomics. 7. Patient to verbalize adequate understanding of rehabilitation process; also ability to recognizesigns and sx of too much or dysfunctional exercise, activity, or posture. 8. Patient will increase FOTO score from 48 to at least 64 to show MDC/MCII and expected functionaloutcome in 5 weeks Patient Education provided: See Self Care Clinical Impression: Presents with SIJ tenderness and reactivity to mechanical loading and unloading. Also demonstrates common TrP referral patterns associated with SIJ dysfunction. Negative nerve tension/irritation tests further suggest a non-radicular source for referred sx to hips and thigh. Tom Barker PT State License, [id number] documented in this [id number] History of Present illness Narrative* Vanita Melendez MD - 01/07/2023 9:11 AM EST [facility] [address] ([address]) [facility] [address] [facility] [id number] Kevin Gallegos is a 27 y.o. male being seen today, 01/07/23, Chief Complaint Patient presents with Lower Back - Pain, Consult Left Knee - Pain, Consult [chief complaint] low back pain left knee pain HPI Dictation patient complains of left-sided lower back pain increased with lumbar. 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 He does have family history with father and sister requiring spinal surgery with x-rays today showing what appears to be degenerative disease at 4 5 and 5 1 with loss of normal lordotic curvature should be noted he has had physical therapy in the past but now forlast couple years limited response he is receiving some sort of manipulation procedure from a therapist which has been helpful at some knee complaints most recently with negative x-rays [hpi] Physical Exam Dictation: [PE] on exam patient is in excellent condition with no concern for cord or paraspinal weakness increased pain with the extremes of lumbar flexion mild paraspinal spasm on exam there is no localized tenderness or effusion with regards to the left knee Assessment and Plan Dictation: [AP] urinary problem seems to be his lumbar degenerative disc disease I explained to him that an MRI of likely be in order by the chronicity of his symptoms however without recent therapy would not be able to get it authorized through his insurance carrier we will again schedule PT also recommendedtrial meloxicam see him back once therapy is completed and obtain an MRI if not improved I have reviewed all relevant histories, medications, allergies, and problem list items with Vamshi Gallegos during this visit. Review of Systems Ht 5' 11 Wt 74.8 kg (165 lb) BMI 23.01 kg/m Imaging: No results found. 1. Lumbar degenerative disc disease 2. Lumbar radiculopathy Ambulatory referral to Orthopedics 3. Chronic pain of left knee Ambulatory referral to Orthopedics Return in about 4 weeks (around 02/04/2023), or if symptoms worsen or fail to improve. Vanita Melendez MD [facility] Diagnosis RUQ abdominal pain Abdominal pain, right upper quadrant documented in this encounter [employer] Phone: evaluation note* Diagnosis Sprain of ligament of lumbosacral joint, initial encounter- Primary [facility] Diagnosis Lumbar degenerative disc disease- Primary Lumbar radiculopathy Thoracic or lumbosacral neuritis or radiculitis, unspecified Chronic pain of left knee [facility]* Diagnosis Sprain of ligament of lumbosacral joint, initial encounter [facility]* Diagnosis Sprain of ligament of lumbosacral joint, initial encounter [S33.9XXA]- Primary [facility]* Diagnosis Healthcare maintenance- Primary Heart palpitations Palpitations HEMALATHA (generalized anxiety disorder) Generalized anxiety disorder [facility] Diagnosis Leukopenia, unspecified type- Primary [facility]* Diagnosis Sprain of ligament of lumbosacral joint, initial encounter- Primary [facility]* Diagnosis Sprain of ligament of lumbosacral joint, initial encounter [S33.9XXA]- Primary [facility]* Diagnosis Lumbosacral pain- Primary [facility]* Diagnosis Lumbosacral pain- Primary [facility]* Diagnosis Lumbosacral pain- Primary [facility]* Diagnosis Lumbosacral pain- Primary [facility]* Diagnosis Lumbosacral pain- Primary [facility]* Diagnosis Lumbar radiculopathy- Primary Thoracic or lumbosacral neuritis or radiculitis, unspecified Lumbar degenerative disc disease [facility]* Diagnosis Lumbar degenerative disc disease- Primary [facility] Diagnosis Lumbar degenerative disc disease- Primary [facility] Diagnosis HEMALATHA (generalized anxiety disorder)- Primary Generalized anxiety disorder Leukopenia, unspecified type [facility]* Diagnosis HEMALATHA (generalized anxiety disorder)- Primary Generalized anxiety disorder [facility]* Diagnosis HEMALATHA (generalized anxiety disorder)- Primary Generalized anxiety disorder [facility]* Diagnosis HEMALATHA (generalized anxiety disorder) Generalized anxiety disorder [facility] Diagnosis HEMALATHA (generalized anxiety disorder)- Primary Generalized anxiety disorder Viral upper respiratory tract infection Acute upper respiratory infections of unspecified site [facility] Diagnosis HEMALATHA (generalized anxiety disorder) Generalized anxiety disorder [facility] Diagnosis HEMALATHA (generalized anxiety disorder)- Primary Generalized anxiety disorder Leukopenia, unspecified type HEMALATHA (generalized anxiety disorder)- Primary Generalized anxiety disorder HEMALATHA (generalized anxiety disorder)- Primary Generalized anxiety disorder HEMALATHA (generalized anxiety disorder) Generalized anxiety disorder HEMALATHA (generalized anxiety disorder)- Primary Generalized anxiety disorder Viral upper respiratory tract infection Acute upper respiratory infections of unspecified site HEMALATHA (generalized anxiety disorder) Generalized anxiety disorder HEMALATHA (generalized anxiety disorder)- Primary Generalized anxiety disorder Upper respiratory tract infection, unspecified type [facility])No reason for referral information availableWMagruder Hospital Work Phone: Summary Purpose Family History No Family History Records FoundNo Family History Records FoundNo Family History Records FoundNo Family History Records FoundNo Family History Records FoundNo Family History Records FoundNo Family History Records FoundNo Family History Records Found Advance Directives No Advanced Directives Records FoundDocuments on File Type Date Recorded 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 is a he with left knee pain. Chief Complaint Patient presents with Left Knee - Pain . HPI: Knee Pain: Patient presents to the office with left knee pain. 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 He did have pain, not any noticeable swelling but states that the knee just doesn't feel right. 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 He denies any instability of the knee, even when he makes a cut while running a route, he denies any instability. He hasn't had to take any pain relievers as heonly has pain every once in awhile especially with any type of a squatting motion. He denies the knee locking up on him but occasional popping. He is concerned about the knee and would like to get itchecked out before he has to go back to college and start football. PMH: Allergies Allergen Reactions No Known Allergies No current outpatient medications on file. History reviewed. No pertinent past medical history. Past Surgical History: Procedure Laterality Date SHOULDER SURGERY Left TONSILLECTOMY Social History Socioeconomic History Marital status: Single Spouse name: Not on file Number of children: Not on file Years of education: Not on file Highest education level: Not on file Occupational History Not on file Social Needs Financial resource strain: Not on file Food insecurity Worry: Not on file Inability: Not on file Transportation needs Medical: Not on file Non-medical: Not on file Tobacco Use Smoking status: Never Smoker Smokeless tobacco: Never Used Substance and Sexual Activity Alcohol use: Yes Frequency: Monthly or less Drug use: Not on file Sexual activity: Not on file Lifestyle Physical activity Days per week: Not on file Minutes per session: Not on file Stress: Not on file Relationships Social connections Talks on phone: Not on file Gets together: Not on file Attends mormonism service: Not on file Active member of club or organization: Not on file Attends meetings of clubs or organizations: Not on file Relationship status: Not on file Other Topics Concern Not on file Social History Narrative Not on file The patient's past medical history, surgical history, social history, family history, medications and allergies were reviewed with the patient today and are available in the chart for further review. ROS: Review of Systems Constitutional: Negative for activity change and fatigue. HENT: Negative for congestion, hearing loss and trouble swallowing. Eyes: Negative for visual disturbance. Respiratory: Negative for chest tightness and shortness of breath. Cardiovascular: Negative for chest pain and palpitations. Gastrointestinal: Negative for abdominal pain, diarrhea, nausea and vomiting. Endocrine: Negative for polydipsia, polyphagia and polyuria. Genitourinary: Negative for decreased urine volume, difficulty urinating and hematuria. Musculoskeletal: Positive for arthralgias. Negative for joint swelling and myalgias. Skin: Negative for color change, rash and wound. Allergic/Immunologic: Negative for immunocompromised state. Neurological: Negative for dizziness, weakness, light-headedness and numbness. Hematological: Does not bruise/bleed easily. Psychiatric/Behavioral: Negative for confusion and sleep disturbance. The patient is not nervous/anxious. PE: Physical Exam Constitutional: He is oriented to person, place, and time. He appears well- developed and well-nourished. HENT: Head: Normocephalic. Eyes: Pupils are equal, round, and reactive to light. Neck: Normal range of motion. Neck supple. Cardiovascular: Normal rate and regular rhythm. Pulmonary/Chest: Effort normal and breath sounds normal. Abdominal: Soft. Bowel sounds are normal. Musculoskeletal: Normal range of motion. General: Tenderness and edema present. Left knee: He exhibits swelling and effusion. Tenderness found. Medial joint line, MCL and patellartendon tenderness noted. Neurological: He is alert and oriented to person, place, and time. Skin: Skin is warm and dry. ORTHO: Left Knee Exam Tenderness The patient is experiencing tenderness in the medial joint line, medial retinaculum, patella and patellar tendon. Range of Motion The patient has normal left knee ROM. Tests Ab: Medial - positive Lateral - negative Varus: negative Valgus: negative Manuel: Anterior - negative Drawer: Anterior - negative Posterior - negative Other Erythema: absent Scars: absent Sensation: normal Pulse: present Swelling: mild Effusion: effusion present Imaging: L Knee 1. Acute osteochondral injury resulting and subtle asymmetric subchondral lucency involving the lateral aspect of the left medial femoral condyle suspected. Trace volume of joint fluid noted. 2. The alignment is otherwise satisfactory. Assessment/Plan: After examination and reviewing of the patient x-ray images, I am ordering a MRI for further diagnostic evaluation of the femoral condyle lucency. I want the MRI prior to starting him in any physical therapy and before he starts football conditioning. The patient verbalizes understanding and is in agreement with the treatment plan. I will see him back for his MRI results. Diagnosis: Problem List Items Addressed This Visit None Follow Up: No follow-ups on file. Michelle Carrillo CNP documented in this encounter* Michelle Carrillo CNP - 09/21/2019 8:48 AM EDT Spoke to the patient on the phone, notified him of his MRI results. The patient is to continue R[facility]therapy and contact his parent trainer when he returns to school for his football workouts. The patient is to follow up as needed. He verbalizes understanding and is in agreement with this treatment plan. documented in this encounter Assessments Diagnosis Osteochondral defect of femoral condyle Diagnosis Acute medial meniscus tear of left knee, initial encounter Reason for Referral Status Reason Specialty Diagnoses / Procedures Referre d By Contact Referred To Contact Closed Radiology Diagnoses Acute medial meniscus tear of left knee, initial encounter Procedures MR Knee Left Without Contrast Michelle Carrillo, CONCRETE 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 [address] [place] [address] Specialty Diagnoses / Procedures Referred By Contac t Referred To Contact Radiology Diagnoses RUQ abdominal pain Procedures US ABDOMEN LIMITED Gela Fry, NUCLEAR PLANT INSTRUMENT TECHNICIAN - CONCRETE 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 [address] [place] [address] Referral ID Status Reason Start Date Expiration Date Visits Re quested Visits Authorized [id number] Closed 11/14/2021 11/14/2022 1 1 Specialty Diagnoses / Procedures Referred By Contac t Referred To Contact Rehabilitation Diagnoses Sprain of ligament of lumbosacral joint, initial encounter Vanita Melendez MD [address] [id number] Referral ID Status Reason Start Date Expiration Date Visits Requested Visits Authorized [id number] Authorized Specialty Services Required/Pat ient's Best Interest 01/07/2024 1 1 Specialty Diagnoses / Procedures Referred By Contac t Referred To Contact Cardiology Diagnoses Heart palpitations Procedures Holter monitor- up to 48 hour Jany Giron CNP [address] [id number] Sangita Moya MD [address] [phone] Referral ID Status Reason Start Date Expiration Date V isits Requested Visits Authorized [id number] Authorized 01/28/2023 01/28/2024 1 1 Specialty Diagnoses / Procedures Referred By Contac t Referred To Contact Behavorist (Outpatient Social Work) Diagnoses Heart palpitations HEMALATHA (generalized anxiety disorder) Jany Giron CNP [address] [place] [address] Referral ID Status Reason Start Date Expiration Date V isits Requested Visits Authorized [id number] Authorized 01/28/2023 01/28/2024 1 1 Specialty Diagnoses / Procedures Referred By Contac t Referred To Contact Radiology Diagnoses Lumbar radiculopathy Lumbar degenerative disc disease Procedures MR Lumbar Spine Without Contrast Viau, Vanita Ballard MD [address] [place] [address] Referral ID Status Reason Start Date Expiration Date V isits Requested Visits Authorized [id number] New Request 03/09/2023 03/08/2024 1 1 Chief Complaint and Reason for Visit Chief Complaint Admit Date LUMBAR SPINE June 30, 2024 8:09am RM 1 June 30, 2024 8:40am LUMBAR PAIN July 15, 2024 6:47a m Reason for Visit Admit Date Lumbar radiculopathy June 30, 2024 8:09a m Additional Source Comments (unrecognized sect ion and content) No Status Records FoundNo Status Records FoundNo Status Records FoundNo Status Records FoundNo Status Records FoundNo Status Records FoundNo Status Records FoundNo Status Records Found INFORMATION SOURCE (unrecogn ized section and content) DATE CREATED AUTHOR 06/13/2018 [facility] ([place]) DATE CREATED AUTHOR AUTHOR'S ORGANIZ ATION 11/25/2021 [facility] DATE CREATED AUTHOR AUTHOR'S ORGANIZ ATION 08/13/2023 [facility] DATE CREATED AUTHOR AUTHOR'S ORGANIZ ATION 09/22/2023 [facility] DATE CREATED AUTHOR [facility]IZ AT[facility] AUTHOR'S ORGANIZ ATION 02/13/2024 [facility] DATE CREATED AUTHOR AUTHOR'S ORGANIZ ATION 02/14/2024 [facility] DATE CREATED AUTHOR AUTHOR'S ORGANIZ ATION 07/21/2024 [facility] Reason for Visit (unrecogniz ed section and content) Reason Comments Pain Status Reason Specialty Diagnoses / Procedures Referre d By Contact Referred To Contact Closed Radiology Diagnoses Acute medial meniscus tear of left knee, initial encounter Procedures MR Knee Left Without Contrast Michelle Carrillo, CONCRETE 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 [address] [place] [address] Specialty Diagnoses / Procedures Referred By Contac t Referred To Contact Radiology Diagnoses RUQ abdominal pain Procedures US ABDOMEN LIMITED Gela Fry, NUCLEAR PLANT INSTRUMENT TECHNICIAN - CONCRETE 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 [address] [place] [address] Referral ID Status Reason Start Date Expiration Date Visits Re quested Visits Authorized [id number] Closed 11/14/2021 11/14/2022 1 1 Reason Comments Pain Consult Specialty Diagnoses / Procedures Referred By Contac t Referred To Contact Orthopedic Surgery Diagnoses Lumbar radiculopathy Chronic pain of left knee Margarita Cross, CONCRETE 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 [address] [place] [address] [facility] [address] [facility] [place] [address] Referral ID Status Reason Start Date Expiration Date Visits Re quested Visits Authorized [id number] Closed 12/19/2022 12/19/2023 1 1 Specialty Diagnoses / Procedures Referred By Contac t Referred To Contact Rehabilitation Diagnoses Sprain of ligament of lumbosacral joint, initial encounter ViauVanita MD [address] [place] [address] [facility] [place] [address] [place] [id number] Referral ID Status Reason Start Date Expiration Date V isits Requested Visits Authorized [id number] Authorized 01/07/2023 01/07/2024 10 30 Reason Comments Establish Care Gap Closure (Health Maintenance) [facility] Visit Never doneHIV Screening Never doneHepatitis C Screening Never doneSequential Influenza Vaccine(1) due on 10/24/2022 Reason Onset Date Comments Care coordination [facility] 01/29/2023 Reason Onset Date Comments Care coordination [facility] 02/06/2023 Referral ID Status Reason Start Date Expiration Date V isits Requested Visits Authorized [id number] Authorized 01/07/2023 01/07/2024 10 38 Reason Comments Pain Reason Onset Date Comments Care coordination [facility] 03/11/2023 Reason Onset Date Comments Medication Refill 03/24/2023 Reason Comments Anxiety No concerns Gap Closure (Health Maintenance) [facility] Never done Follow-up WBC repeat lab Reason Comments Anxiety Patient states that he has an overwhelming sense of knots in stomach, nervous, unable to focus. Starts when he first wakes up. States it has been for the past 4-5 days. Reason Comments Anxiety Was seen 07/29 by Asya Castro CNP feels it's getting worse.Has used 4 days of vistaril with no improvement Gap Closure (Health Maintenance) [facility] Never done Reason Comments Anxiety Feeling better with medication. Needs vistaril refilled Gap Closure (Health Maintenance) [facility] Never done Reason Comments Sore Throat Hurts to swallow. No fever or runny nose. Started Thursday Pyrites had heart palpitation-comes/goes chest tightness-constant started today Not sleeping-goes to sleep but cannot stay alseep x1 week Gap Closure (Health Maintenance) [facility] Never done Reason Comments Annual Exam No concerns Anxiety Doing better, discus s concentration Gap Closure (Health Maintenance) [facility] Never done Reason Comments Anxiety Doing okay Flu-decli antonino Gap Closure (Health Maintenance) Influen za Vaccine(1) due on 10/25/2023 Reason Onset Date Comments Medication Refill 07/19/2024 Care Teams (unrecognized sec tion and content) Rd Lab Technician Relationship Specialty Start Date End Date Margarita Cross CNP [address] [place] [id number] PCP - General Nurse Practitioner 12/19/22 Rd Lab Technician Relationship Specialty Start Date End Date Margarita Cross CNP [address] [place] [id number] PCP - General Nurse Practitioner 12/19/22 Rd Lab Technician Relationship Specialty Start Date End Date Margarita Cross CNP [address] [place] [id number] PCP - General Nurse Practitioner 12/19/22 Rd Lab Technician Relationship Specialty Start Date End Date Margarita Cross CNP [address] [place] [id number] PCP - General Nurse Practitioner 12/19/22 Rd Lab Technician Relationship Specialty Start Date End Date Jany Giron CNP [address] [place] [address] PCP - General Nurse Practitioner 01/28/23 Rd Lab Technician Relationship Specialty Start Date End Date Jany Giron CNP [address] [place] [address] PCP - General Nurse Practitioner 01/28/23 Rd Lab Technician Relationship Specialty Start Date End Date Jany Giron CNP [address] [place] [address] PCP - General Nurse Practitioner 01/28/23 Rd Lab Technician Relationship Specialty Start Date End Date Jany Giron CNP [address] [place] [address] PCP - General Nurse Practitioner 01/28/23 Rd Lab Technician Relationship Specialty Start Date End Date Jany Giron CNP [address] [place] [address] PCP - General Nurse Practitioner 01/28/23 Rd Lab Technician Relationship Specialty Start Date End Date Jany Giron CNP [address] [place] [address] PCP - General Nurse Practitioner 01/28/23 Rd Lab Technician Relationship Specialty Start Date End Date Jany Giron CNP [address] [place] [address] PCP - General Nurse Practitioner 01/28/23 Rd Lab Technician Relationship Specialty Start Date End Date Jany Giron CNP [address] [facility] [place] [address] PCP - General Nurse Practitioner 01/28/23 Rd Lab Technician Relationship Specialty Start Date End Date Jany Giron CNP [address] [facility] [place] [address] PCP - General Nurse Practitioner 01/28/23 Rd Lab Technician Relationship Specialty Start Date End Date Jany Giron CNP [address] [facility] [place] [address] PCP - General Nurse Practitioner 01/28/23 Rd Lab Technician Relationship Specialty Start Date End Date Jany Giron CNP [address] [facility] [place] [address] PCP - General Nurse Practitioner 01/28/23 America Arredondo [facility] Independent Clinician Shuttle Driver 03/11/23 Rd Lab Technician Relationship Specialty Start Date End Date Jany Giron CNP [address] [facility] [place] [address] PCP - General Nurse Practitioner 01/28/23 America Arredondo [facility] Independent Clinician Shuttle Driver 03/11/23 Rd Lab Technician Relationship Specialty Start Date End Date Jany Giron CNP [address] [facility] [place] [address] PCP - General Nurse Practitioner 01/28/23 [facility] Shuttle Driver 03/11/23 Rd Lab Technician Relationship Specialty Start Date End Date Jany Giron CNP [address] [facility] [place] [address] PCP - General Nurse Practitioner 01/28/23 America Arredondo [facility] Independent Clinician Shuttle Driver 03/11/23 Rd Lab Technician Relationship Specialty Start Date End Date Jany Giron CNP [address] [facility] [place] [address] PCP - General Nurse Practitioner 01/28/23 America Arredondo [facility] Independent Clinician Shuttle Driver 03/11/23 Rd Lab Technician Relationship Specialty Start Date End Date Jany Giron CNP [address] [facility] [place] [address] PCP - General Nurse Practitioner 01/28/23 America Arredondo [facility] Independent Clinician Shuttle Driver 03/11/23 Rd Lab Technician Relationship Specialty Start Date End Date Jany Giron CNP [address] [facility] [place] [address] PCP - General Nurse Practitioner 01/28/23 America Arredondo [facility] Independent Clinician Shuttle Driver 03/11/23 Rd Lab Technician Relationship Specialty Start Date End Date Jany Giron CNP [address] [facility] [place] [address] PCP - General Nurse Practitioner 01/28/23 America Arredondo [facility] Independent Clinician Shuttle Driver 03/11/23 Rd Lab Technician Relationship Specialty Start Date End Date Jany Giron CNP [address] [facility] [place] [address] PCP - General Nurse Practitioner 01/28/23 America Arredondo [facility] Independent Clinician Shuttle Driver 03/11/23 Rd Lab Technician Relationship Specialty Start Date End Date Jany Giron CNP [address] [facility] [place] [address] PCP - General Nurse Practitioner 01/28/23 America Arredondo [facility] Independent Clinician Shuttle Driver 03/11/23 Rd Lab Technician Relationship Specialty Start Date End Date Jany Giron LING [address] [place] [address] PCP - General Nurse Practitioner 01/28/23 [facility] Shuttle Driver 03/11/23 Team Status: Active Member Role Status Dates No Primary Care Physician Primary Care Provider Active Team Status: Inactive Member Role Status Dates No Primary Care Physician Primary Care Provider Active Start: June 30, 2024 End: June 30, 2024 No Primary Care Physician Referring Provider Active Start: June 30, 2024 End: June 30, 2024 ALVIN Burnett Attending Provider Active Star t: June 30, 2024 End: June 30, 2024 Team Status: Inactive Member Role Status Dates No Primary Care Physician Primary Care Provider Active Start: June 30, 2024 End: June 30, 2024 Dr. Hi France MD Attending Provider Active S tart: June 30, 2024 End: June 30, 2024 Team Status: Inactive Member Role Status Dates No Primary Care Physician Primary Care Provider Active Start: July 15, 2024 End: July 15, 2024 ALVIN Burnett Attending Provider Active Star t: July 15, 2024 End: July 15, 2024 ALVIN Burnett Referring Provider Active Star t: July 15, 2024 End: July 15, 2024 FOR RECORDS PERTAINING TO PATIENTS WHO ARE OR HAVE BEEN ENROLLED IN A CHEMICAL DEPENDENCY/SUBSTANCEABUSE PROGRAM, SOME INFORMATION MAY BE OMITTED. This clinical summary was aggregated from multiple sources. Caution should be exercised in using it in the provision of clinical care. This summary normalizes information from multiple sources, and as a consequence, information in this document may materially change the coding, format and clinical context of patient data. In addition, data may be omitted in some cases. CLINICAL DECISIONS SHOULD BE BASED ON THE PRIMARY CLINICAL RECORDS. [employer] provides no warranty or guarantee of the accuracy or completeness of information in this document.
[2024-10-31 10:25] LABS: Hematocrit 43.5 % (40-54); Hemoglobin 14.9 g/dL (13.0-16.5); Immature Granulocytes Count 0.010 X10^3/uL (0.0-0.0); Mean Corp Hgb Conc 34.3 g/dL (32-36); Mean Corpuscular Volume 87.2 fL (80-94); Mean Platelet Vol. 10.9 fl (6.2-12.0); NRBC Flagged by Analyzer 0 % (0-5); Platelet Count 238 K/mm3 (150-450); RBC Distribution Width CV 11.7 % (11.6-14.6); RBC Distribution Width SD 37.4 fl (35.1-43.9); Red Blood Count 4.99 M/mm3 (4.6-6.2); White Blood Count 4.0 K/mm3 (4.4-11.0)
[2024-10-31 11:01] LABS: Prothrombin Time (Protime)PT. 13.8 SECONDS (11.7-14.9)
[2024-10-31 11:02] LABS: Partial Thromboplast Time 31.5 Seconds (24.1-36.2)
[2024-10-31 11:16] LABS: Ferritin 173 ng/mL (37-417); HIV Nonreactive (Nonreactive); Iron 109 ug/dL (65-175); LDH 129 U/L (87-241); Syphilis Antibodies Nonreactive (Nonreactive)
[2024-10-31 11:24] LABS: AST(SGOT) 19 U/L (<=37); Alanine Aminotransfer ALT/SGPT 15 U/L (<=46); Albumin, Serum 4.7 g/dL (3.5-5.0); Alkaline Phosphatase 64 U/L (40-129); Anion Gap 11 (5-15); BUN 13 mg/dL (4-19); BUN/Creat Ratio 12.7 RATIO (10-20); Calcium,Total 9.6 mg/dL (7.6-11.0); Carbon Dioxide 23.6 mmol/L (21.0-32.0); Chloride 104 mmol/L (98-108); Cholesterol 169 mg/dL (<=200); Globulin 2.5 g/dL (2.2-4.2); Glucose 95 mg/dL (70-99); Low Density Lipoprotein Calc. 102 mg/dL; Potassium 4.9 mmol/L (3.3-5.1); Triglycerides 81 mg/dL; Very Low Density Lipoprotein 16 mg/dL (5-40); cholesterol:hdl ratio screen 3.31
== END | disposition home or self-care (01) ==
LOC: MTLAB 07:52
PROVIDERS: PCP Nurse Practitioner Family; Referring Provider Nurse Practitioner Family; Visit Provider Nurse Practitioner Family
DX: Z00.01 Encounter for general adult medical examination with abnormal findings (principal); Z20.9 Contact with and (suspected) exposure to unspecified communicable disease; Z83.2 Family history of diseases of the blood and blood-forming organs and certain disorders involving the immune mechanism
CPT/HCPCS: 36415; 80053; 80061; 82728; 83540; 83615; 85025; 85610; 85730; 86703; 86780; 87491; 87591